=== PATIENT | female | born 1970 | race Caucasian/White ===

== ENCOUNTER 2020-01-03 08:43 | Outpatient (CLI) | payer BC, SELFPAY ==
--- NOTE | 2020-01-03 08:47 | MM_ITS ---
WS: [id number] Bilateral screening digital mammogram, 01/03/2020 Clinical Data: SCREENING Comparison: 02/18/2018, 12/19/2016, 05/16/2014, 05/27/2011, 03/05/2009. Findings: The breast parenchymal pattern shows fibroglandular tissue No spiculated masses or clustered calcific ations are seen. There are no secondary signs of carcinoma. MM/[place] [id number] Impression: 1. Negative bilateral mammogram unchanged. 2. Recommend annual screening mammograms. BIRADS: 1-Negative FOLLOW UP: 1 Year Follow-up The CAD weight checker was used.
== END 2020-01-03 08:44 | disposition home or self-care (01) ==
LOC: RADSHAW 08:46
PROVIDERS: PCP Family Medicine; Visit Provider Family Medicine
DX: Z12.31 Encounter for screening mammogram for malignant neoplasm of breast (principal)
CPT/HCPCS: 77067

== ENCOUNTER → 2020-01-16 12:16 | Outpatient (BNVA) | payer BC, SELFPAY | PROVIDERS: PCP Family Medicine; Visit Provider Family Medicine | DX: E78.00 Pure hypercholesterolemia, unspecified (principal); E28.39 Other primary ovarian failure; I10 Essential (primary) hypertension; F41.9 Anxiety disorder, unspecified; S40.861D Insect bite (nonvenomous) of right upper arm, subsequent encounter; W57.XXXD Bitten or stung by nonvenomous insect and other nonvenomous arthropods, subsequent encounter; Z72.0 Tobacco use | CPT/HCPCS: 80053; 80061; 85025 ==

== ENCOUNTER → 2020-07-31 11:35 | Outpatient (BNVA) | payer BC, SELFPAY | PROVIDERS: PCP Family Medicine; Visit Provider Family Medicine | DX: E78.00 Pure hypercholesterolemia, unspecified (principal); J04.0 Acute laryngitis | CPT/HCPCS: 80053; 80061; 85025 ==

== ENCOUNTER 2020-08-16 14:06 | Outpatient (CLI) | payer BC, SELFPAY ==
--- NOTE | 2020-08-16 14:30 | CT_ITS ---
WS: [id number] CT NECK WITH CONTRAST HISTORY: neck pain TECHNIQUE: Contiguous 5 mm axial images are performed through the neck with intravenous contrast. Sag ittal and coronal reformats are also submitted. All CT scans at [facility] use at least o ne of these dose optimization techniques: automated exposure control; mA and/or kV adjustment per pat ient size (includes targeted exams where dose is matched to clinical indication); or iterative recons truction. CONTRAST: CONTRAST: Omnipaque 300; 95 mL IV. DLP: 2348.73 mGycm COMPARISON: None available. Nasopharynx and hypopharynx are negative. There is some very mild heterogeneity and decreased attenua tion in the posterior tongue of uncertain etiology. No enhancing mass. There is a additional low-atte nuation nodule measuring 5 mm involving the base of the uvula. This is just slightly to the RIGHT of midline. LEFT pyriform sinus is slightly larger than the RIGHT. Torus tubarius and fossa of Rosenmuller and parapharyngeal fat are normal. There are small cervical chain lymph nodes identified bilaterally. The largest measures 8 mm at level 2 on the RIGHT. Normal size thyroid. Hypoechoic nodule LEFT thyroid is subcentimeter. No parotid mass. Cervical spondylitic changes. Visualized portions of the skull base demonstrate no abnormalities. Orbits and globes are within norm al limits. No soft tissue masses. Visualized paranasal sinuses and mastoid air cells are normal. There is a large soft tissue mass in the medial LEFT upper lung. Partly necrotic mass begins at the l evel of the apex and extends superior inferior by greater than 5 cm. This mass abuts the descending a antonio but there is still a fat plane present. Mass extends into the AP window where it may be involvin g the recurrent laryngeal nerve. Transverse diameter of 3.9 and AP measurement of 5.[address]/CT neck w con* [id number] IMPRESSION: 1. Large solid mass likely neoplastic centered in the LEFT upper lung/mediasti num. Mass abuts the aortic arch and extends into the AP window likely contactin g the LEFT recurrent laryngeal nerve. Mass measures 3.9 x 5.2 cm. This is likel y neoplastic. 2. Ill-defined area of decreased attenuation at the tongue base and a small no dule involving the base of the uvula. These are both very nonspecific and there is no adenopathy. Consider direct visualization for complete evaluation.
[2020-08-16] MEDS: iohexol 300 mg/mL 100 mL Btl IV (14:49)
== END 2020-08-16 14:07 | disposition home or self-care (01) ==
LOC: RADWPI 14:10
PROVIDERS: PCP Family Medicine; Visit Provider Otolaryngology
DX: M54.2 Cervicalgia (principal); R91.8 Other nonspecific abnormal finding of lung field
CPT/HCPCS: 70491; Q9967

== ENCOUNTER 2020-08-24 10:10 | Outpatient (CLI) | payer BC, OTHER, SELFPAY ==
--- NOTE | 2020-08-24 | CT_ITS ---
WS: [id number] CT CHEST, ABDOMEN, AND PELVIS TECHNIQUE: Contrast-enhanced CT of the chest, abdomen, and pelvis with coronal and sagittal reformatt ed images. CLINICAL INFORMATION: MEDIASTINAL MASS COMPARISON: CT abdomen pelvis and . CT neck August 16, 2020 DLP: 2468.[address] scans at [facility] use at least one of these dose optimization techniques: automat ed exposure control; mA and/or kV adjustment per patient size (includes targeted exams where dose is matched to clinical indication); or iterative reconstruction. CT CHEST: Heterogeneously enhancing anterior mediastinal mass abutting the AP window measuring 5.1 x 3.3 x 5.4 cm AP by transverse by craniocaudal consistent with neoplasm. This extends into the AP window. Associ ated encasement of the distal left mainstem bronchus with narrowing. Encasement and narrowing of the distal main pulmonary artery. This extends superiorly to abut the superior medial pleura and mediasti num. Normal caliber thoracic aorta. No pretracheal or right hilar lymphadenopathy. Normal thyroid gland. N o axillary lymphadenopathy. Mild chronic emphysematous changes. No acute pulmonary infiltrates. Sligh t atelectasis in the lung bases. CT ABDOMEN AND PELVIS: Diffuse fatty infiltration of the liver. Normal gallbladder. Normal portal vein and splenic vein. Nor mal spleen. Normal GE junction. Normal pancreas. Adrenal glands are normal. Normal renal parenchymal enhancement. No hydronephrosis. Tiny renal cysts. Normal caliber abdominal aorta. Aortic calcificatio n. Again seen is small bowel located within the right mid and upper quadrant with colon in the left abdo men consistent with malrotation.Sigmoid diverticulosis. No evidence of acute diverticulitis. Right ov kylie cysts largest measuring 2.5 CM. No free fluid in the pelvis. Disc space narrowing worse L5-S1. Prior hysterectomy. CT/CT chest abd pel w con* IMPRESSION: 1. Again seen is a heterogeneously enhancing anterior mediastinal mass abuttin g the aortic arch extending into the AP window. This measures 5.1 x 3.3 x 5.4 C M. 2. No axillary lymphadenopathy. No suspicious pulmonary lesions. 3. Mediastinal mass narrows the left main pulmonary artery and distal left yojana nstem bronchus. 4. No evidence of metastatic disease in the abdomen or pelvis. 5. Diffuse fatty infiltration of the liver 6. Intestinal malrotation unchanged the prior examinations. 7. Low-attenuation right ovarian cysts the largest measuring 2.5CCM. No free f luid in the cul-de-sac.
[2020-08-24 12:35] LABS: Basophils # 0.1 10^3/uL (0.0-0.1); Basophils % 0.7 %; Eosinophils % 0.3 %; Hematocrit 41.3 % (37.0-47.0); Lymphocytes # 3.2 10^3/uL (0.8-4.8); Mean Corpuscular HGB Conc 33.9 g/dL (30.0-36.0); Mean Corpuscular Hemoglobin 30.4 pg (28.0-34.0); Mean Corpuscular Volume 89.8 fL (81-99); Monocytes # 0.9 10^3/uL (0.2-0.9); Monocytes % 8.7 %; Neutrophils # 6.06 10^3/uL (1.8-7.7); Neutrophils % 58.9 %; Nucleated Red Blood Cells % 0 %; Platelet Count 418 10^3/cmm (130-400); Red Cell Distribution Width 12.1 % (12.1-15.1); White Blood Count 10.3 10^3/uL (4.0-10.0)
[2020-08-24 12:42] LABS: INR 0.91 (0.8-1.2)
[2020-08-24 12:48] LABS: Alanine Aminotransferase 42 U/L (0-33); Albumin Level 4.6 g/dL (3.5-5.2); Alkaline Phosphatase 75 IU/L (35-105); Anion Gap 13.7 (5-19); Aspartate Amino Transferase 26 U/L (0-32); Blood Urea Nitrogen 17 mg/dL (6-20); Calcium 10.6 mg/dL (8.5-10.5); Carbon Dioxide 29 mmol/L (22-29); Chloride 100 mmol/L (98-107); Globulin 3.1 g/dL (1.3-4.6); Glomerular Filtration Rate 75.6 mL/min (90-130); Glucose 89 mg/dL (65-115); Lactate Dehydrogenase 195 U/L (135-214); Osmolality Calculated 289 mOsm/kg (285-295); Potassium 3.7 mmol/L (3.5-5.1); Sodium 139 mmol/L (136-145); Thyroid Stimulating Hormone 1.76 uIU/mL (0.27-4.20); Total Bilirubin 0.2 mg/dL (0.15-1.2); Total Protein 7.7 g/dL (6.6-8.7)
[2020-08-24] MEDS: iohexol 300 mg/mL 100 mL Btl IV (12:51)
--- NOTE | 2020-08-24 13:30 | ONC CON_ITS ---
Dr. Alvarado New Patient Note Patient: Sarahi Christopher Unit #: [id number]: 1970 Dicatated By: Anthony Alvarado M.D.Date of Visit: Aug 24, 2020 Onc MED New Patient/Consult Referring Physician: Dr. Candis Blue M.D. Chief Complaint: Mediastinal mass. History of Present Illness: This is a 50-year-old woman with CT evidence of a mediastinal mass. She has hypertension and hyperlipidemia, and she also has TMJ disorder. She had progressively worsening hoarseness since early June. She was seen by Dr. Major on 08/01/2020. Her flexible laryngoscopy was unrevealing. Further evaluation with neck CT on 08/16/2000 revealed a large neoplastic appearing mass in the medial left upper lung/mediastinum measuring 5.2 x 3.9 cm with superior inferior extension greater than 5 cm. There was extension into the AP window. Also noted was an ill-defined area of decreased attenuation at the tongue base and a small nodule involving the base of the uvula. Small cervical chain lymph nodes were noted bilaterally bilaterally, the largest on the right measuring 8 mm. She complained that she has been feeling tired a lot, and there has been some decrease in her activity tolerance. Her ECOG score is 1. She has not had good appetite and her weight is down a little. She has not had fever or night sweats. She does have some hot flashes. She continues to have hoarseness. She sometimes chokes when she swallows. She has some pain and tenderness in the left neck area. She has shortness of breath and she sometimes has cough. She does not complain of chest pain, but she sometimes has pounding in her chest. She has had headaches behind the left eye and in the area of the left congregation. She has no focal neurologic symptoms. Past Medical History: Ms. Bryants medical history consists of anxiety, hypercholesterolemia, hypertension, and TMJ disorder. Past Surgical History: Ms. Bryants surgical/procedural history consists of Cervical Laser Surgery - Pre-Cancer Cells removed, excision of 3 benign subcutaneous nodules, tonsillectomy, coronary angiography in 2018, and laparoscopic-assisted vaginal hysterectomy in 2005. Medications: Atorvastatin Calcium 1 (20 mg) Tablet Oral daily, Biotin 1 (17095 mcg) Tablet Oral daily, Calcium Citrate 1 (200 mg) Tablet Oral daily, hydroCHLOROthiazide 1 (25 mg) Tablet Oral daily, Ibuprofen 1 (600 mg) Tablet Oral t.i.d. PRN, LORazepam 1 (1 mg) Tablet Oral t.i.d. PRN, Naproxen Sodium 1 (220 mg) Tablet Oral daily PRN, One-Daily Multi Vitamins 1 Tablet Oral daily, Potassium Chloride ER 1 (20 meq) Tablet, controlled release Oral b.i.d. Allergies: Bavarian Cream, Egg, Penicillins, Robitussin 12 Hour Cough, and Unpasteurized Dairy . Social History: Ms. Christopher is . Ms. Christopher no longer smokes but had smoked 1.0 pack/day. She drinks occasionally. She has a history of smoking off and on for 20 years, up to a pack of cigarettes daily. She quit smoking within the past few months. She has had only rare alcohol use. Family History: Ms. Christopher's mother is alive: lymphoma. Ms. Christopher's father at age 66: liver cancer, and lung cancer. Ms. Christopher has 1 brother who is alive: lung disease. She has 1 sister who is alive. Father of lung cancer at age 66. Mother still living at age 88. She has been treated for lymphoma. A brother of lung disease at age 58. A 61-year-old sister is in good health. Review Of Symptoms: Constitutional - She has been feeling tired a lot, and she has had some decrease in her activity tolerance. Appetite has not been good and her weight is down a little. She has not had fever or night sweats. She does have some hot flashes. ECOG score is 1, Eyes - No change in vision, ENMT - No hearing loss or tinnitus, but she does report having pain in her left ear. No sinus congestion/drainage. No mouth sores. No sore throat. She has hoarseness and she sometimes chokes when she swallows, Hematologic/Lymphatic - No abnormal bruising or bleeding, Respiratory - She has shortness of breath. She sometimes has cough. No pleuritic pain or hemoptysis, Cardiovascular - No angina pain. She sometimes has pounding in her chest, Gastrointestinal - She has had occasional nausea and she has had occasional acid reflux. No diarrhea or constipation. No blood in the stool or black stools, Genitourinary (F) - She had 1 recent episode of hematuria, that resolved with increased fluid intake. No dysuria or urinary frequency. No urgency or incontinence, Musculoskeletal - She has TMJ disorder. Recently she has had some pain in her left elbow. No other joint or bone pain, Integumentary - No skin rash or other skin problems, Neurologic - She has had some headache in the left congregation area and behind the left eye. She occasionally has dizziness. No numbness or tingling. No other focal neurologic symptoms, Psychiatric - She has anxiety and depression. She has been taking Tylenol PM or lorazepam for insomnia. Vital Signs: Performed on Aug 24, 2020 11:04: 3, 30.95 (HIGH), 1.78 sq.m, 62 in, 95 % (LOW), 111 /min (HIGH), 16 /min, 139/102 mm(hg), 98.4 F, and 169.2 lbs (HIGH). Physical Examination: Constitutional - She appears to be in good general health, Eyes - Sclerae nonicteric. Conjunctivae clear, ENMT - No lesions noted in the oral cavity, Neck - No mass or thyromegaly, Hematologic/Lymphatic - No cervical, clavicular, or axillary adenopathy, Respiratory - Lungs are clear with good air movement bilaterally, Cardiovascular - Heart rhythm is regular. There is no murmur, gallop, or rub noted, Abdomen - Soft and non-tender. Liver and spleen are not enlarged. There is no abdominal mass or ascites noted and there is no inguinal adenopathy, Back/Spine - No spine or CVA tenderness noted, Extremities - No edema. Posterior tibial pulses are palpable bilaterally, Integumentary - No rashes. No suspicious skin lesions noted, Neurologic - No focal neurologic deficits noted. Lab/Imaging: Problem List: 1. CT evidence of mediastinal mass, likely neoplastic. 2. Hypertension. 3. Hyperlipidemia. 4. TMJ disorder. 5. Chronic anxiety. Problems Addressed with this Encounter and Plan: Patient with CT evidence of mediastinal mass which is likely neoplastic. She has associated hoarseness, most likely due to recurrent laryngeal nerve impingement. I discussed the CT findings with the patient and her and I also reviewed the CT images with them. She is going to have further evaluation today with CT scans of the chest, abdomen, and pelvis. I also will obtain baseline laboratory studies to include CBC, comprehensive metabolic profile, LDH level, sed rate, TSH level, and antiacetylcholine receptor antibodies. In the meantime, I also have conferred with the radiologist and with Dr. Long regarding her further evaluation. As the location of the lesion is such that it is not going to be amenable to CT directed needle biopsy, I think the best approach will be a mediastinoscopy procedure for biopsy. I am tentatively arranging for referral to Dr. Long pending outcome of the CT scans and lab results. Signed By: Anthony Alvarado M.D. <<Signature on File>>
--- NOTE | 2020-08-24 13:32 | ONC CON_ITS ---
Dr. Alvarado New Patient Note Patient: Sarahi Christopher Unit #: [id number]: 1970 Dicatated By: Anthony Alvarado M.D.Date of Visit: Aug 24, 2020 Onc MED New Patient/Consult Referring Physician: Dr. Candis Blue M.D. Chief Complaint: Mediastinal mass. History of Present Illness: This is a 50-year-old woman with CT evidence of a mediastinal mass. She has hypertension and hyperlipidemia, and she also has TMJ disorder. She had progressively worsening hoarseness since early June. She was seen by Dr. Major on 08/01/2020. Her flexible laryngoscopy was unrevealing. Further evaluation with neck CT on 08/16/2000 revealed a large neoplastic appearing mass in the medial left upper lung/mediastinum measuring 5.2 x 3.9 cm with superior inferior extension greater than 5 cm. There was extension into the AP window. Also noted was an ill-defined area of decreased attenuation at the tongue base and a small nodule involving the base of the uvula. Small cervical chain lymph nodes were noted bilaterally bilaterally, the largest on the right measuring 8 mm. She complained that she has been feeling tired a lot, and there has been some decrease in her activity tolerance. Her ECOG score is 1. She has not had good appetite and her weight is down a little. She has not had fever or night sweats. She does have some hot flashes. She continues to have hoarseness. She sometimes chokes when she swallows. She has some pain and tenderness in the left neck area. She has shortness of breath and she sometimes has cough. She does not complain of chest pain, but she sometimes has pounding in her chest. She has had headaches behind the left eye and in the area of the left anglican. She has no focal neurologic symptoms. Past Medical History: Her medical history includes anxiety, hypercholesterolemia, hypertension, and TMJ disorder. Past Surgical History: Her surgical/procedural history includes cervical laser surgery for pre-cancerous cells, excision of 3 benign subcutaneous nodules, tonsillectomy, coronary angiography in 2018, and laparoscopic-assisted vaginal hysterectomy in 2005. Medications: Atorvastatin Calcium 1 (20 mg) Tablet Oral daily, Biotin 1 (45766 mcg) Tablet Oral daily, Calcium Citrate 1 (200 mg) Tablet Oral daily, hydroCHLOROthiazide 1 (25 mg) Tablet Oral daily, Ibuprofen 1 (600 mg) Tablet Oral t.i.d. PRN, LORazepam 1 (1 mg) Tablet Oral t.i.d. PRN, Naproxen Sodium 1 (220 mg) Tablet Oral daily PRN, One-Daily Multi Vitamins 1 Tablet Oral daily, Potassium Chloride ER 1 (20 meq) Tablet, controlled release Oral b.i.d. Allergies: Bavarian Cream, Egg, Penicillins, Robitussin 12 Hour Cough, and Unpasteurized Dairy . Social History: Ms. Christopher is . She has a history of smoking off and on for 20 years, up to a pack of cigarettes daily. She quit smoking within the past few months. She has had only rare alcohol use. Family History: Father of lung cancer at age 66. Mother still living at age 88. She has been treated for lymphoma. A brother of lung disease at age 58. A 61-year-old sister is in good health. Review Of Symptoms: Constitutional - She has been feeling tired a lot, and she has had some decrease in her activity tolerance. Appetite has not been good and her weight is down a little. She has not had fever or night sweats. She does have some hot flashes. ECOG score is 1, Eyes - No change in vision, ENMT - No hearing loss or tinnitus, but she does report having pain in her left ear. No sinus congestion/drainage. No mouth sores. No sore throat. She has hoarseness and she sometimes chokes when she swallows, Hematologic/Lymphatic - No abnormal bruising or bleeding, Respiratory - She has shortness of breath. She sometimes has cough. No pleuritic pain or hemoptysis, Cardiovascular - No angina pain. She sometimes has pounding in her chest, Gastrointestinal - She has had occasional nausea and she has had occasional acid reflux. No diarrhea or constipation. No blood in the stool or black stools, Genitourinary (F) - She had 1 recent episode of hematuria, that resolved with increased fluid intake. No dysuria or urinary frequency. No urgency or incontinence, Musculoskeletal - She has TMJ disorder. Recently she has had some pain in her left elbow. No other joint or bone pain, Integumentary - No skin rash or other skin problems, Neurologic - She has had some headache in the left anglican area and behind the left eye. She occasionally has dizziness. No numbness or tingling. No other focal neurologic symptoms, Psychiatric - She has anxiety and depression. She has been taking Tylenol PM or lorazepam for insomnia. Vital Signs: Performed on Aug 24, 2020 11:04: 3, 30.95 (HIGH), 1.78 sq.m, 62 in, 95 % (LOW), 111 /min (HIGH), 16 /min, 139/102 mm(hg), 98.4 F, and 169.2 lbs (HIGH). Physical Examination: Constitutional - She appears to be in good general health, Eyes - Sclerae nonicteric. Conjunctivae clear, ENMT - No lesions noted in the oral cavity, Neck - No mass or thyromegaly, Hematologic/Lymphatic - No cervical, clavicular, or axillary adenopathy, Respiratory - Lungs are clear with good air movement bilaterally, Cardiovascular - Heart rhythm is regular. There is no murmur, gallop, or rub noted, Abdomen - Soft and non-tender. Liver and spleen are not enlarged. There is no abdominal mass or ascites noted and there is no inguinal adenopathy, Back/Spine - No spine or CVA tenderness noted, Extremities - No edema. Posterior tibial pulses are palpable bilaterally, Integumentary - No rashes. No suspicious skin lesions noted, Neurologic - No focal neurologic deficits noted. Problem List: 1. CT evidence of mediastinal mass, likely neoplastic. 2. Hypertension. 3. Hyperlipidemia. 4. TMJ disorder. 5. Chronic anxiety. Problems Addressed with this Encounter and Plan: Patient with CT evidence of mediastinal mass which is likely neoplastic. She has associated hoarseness, most likely due to recurrent laryngeal nerve impingement. I discussed the CT findings with the patient and her and I also reviewed the CT images with them. She is going to have further evaluation today with CT scans of the chest, abdomen, and pelvis. I also will obtain baseline laboratory studies to include CBC, comprehensive metabolic profile, LDH level, sed rate, TSH level, and antiacetylcholine receptor antibodies. In the meantime, I also have conferred with the radiologist and with Dr. Long regarding her further evaluation. As the location of the lesion is such that it is not going to be amenable to CT directed needle biopsy, I think the best approach will be a mediastinoscopy procedure for biopsy. I am tentatively arranging for referral to Dr. Long pending outcome of the CT scans and lab results. Signed By: Anthony Alvarado M.D. <<Signature on File>>
[2020-08-24 14:06] LABS: Erythrocyte Sedimentation Rate 22 mm/hr (0-15)
== END 2020-08-24 10:11 | disposition home or self-care (01) ==
PROVIDERS: PCP Family Medicine; Visit Provider Internal Medicine Medical Oncology
DX: R93.89 Abnormal findings on diagnostic imaging of other specified body structures (principal); Z01.812 Encounter for preprocedural laboratory examination; R49.0 Dysphonia; I10 Essential (primary) hypertension; E78.5 Hyperlipidemia, unspecified; M26.609 Unspecified temporomandibular joint disorder, unspecified side; F41.9 Anxiety disorder, unspecified
CPT/HCPCS: 36415; 71260; 74177; 80053; 83516; 83615; 84443; 85025; 85610; 85651; 99205; Q9967

== ENCOUNTER → 2020-08-30 13:29 | Outpatient (BNVA) | payer BC, OTHER, SELFPAY | PROVIDERS: PCP Family Medicine; Visit Provider Thoracic Surgery (Cardiothoracic Vascular Surgery) | DX: Z20.822 Contact with and (suspected) exposure to COVID-19 (principal); J98.59 Other diseases of mediastinum, not elsewhere classified | CPT/HCPCS: 87635 ==

== ENCOUNTER 2020-09-03 13:38 | Observation (INO) | payer BC, OTHER, SELFPAY ==
[2020-08-31 10:55] VITALS: BMI 23.8
[2020-09-03] VITALS (20 sets, daily range): BP systolic 90–154; BP diastolic 62–106; PULSE 68–113; RESP 10–18; TEMP 36.3–37.7; O2SAT 93–99
[2020-09-03 08:51] LABS: Basophils # 0.1 10^3/uL (0.0-0.1); Basophils % 0.8 %; Eosinophils # 0.1 10^3/uL (0.0-0.8); Eosinophils % 0.7 %; Hematocrit 40.2 % (37.0-47.0); Lymphocytes # 2.6 10^3/uL (0.8-4.8); Lymphocytes % 29.4 %; Mean Corpuscular HGB Conc 34.8 g/dL (30.0-36.0); Mean Corpuscular Hemoglobin 30.5 pg (28.0-34.0); Mean Corpuscular Volume 87.6 fL (81-99); Mean Platelet Volume 9.1 fL (7.4-10.4); Monocytes # 0.9 10^3/uL (0.2-0.9); Neutrophils # 5.27 10^3/uL (1.8-7.7); Neutrophils % 58.9 %; Nucleated Red Blood Cells % 0 %; Platelet Count 404 10^3/cmm (130-400); Red Blood Count 4.59 10^6/uL (4.1-5.3); Red Cell Distribution Width 12.1 % (12.1-15.1); White Blood Count 8.9 10^3/uL (4.0-10.0)
--- NOTE | 2020-09-03 08:57 | P.ANESASSM_ITS ---
Pre-Anesthetic Assessment Pre-Anesthetic Assessment: Height/Weight: Height 1.57 m Weight 58.967 kg Temp Pulse Resp BP Pulse Ox 97.6 F 104 H 18 115/87 97 09/03/20 08:35 09/03/20 08:35 09/03/20 08:35 09/03/20 08:35 09/03/20 08:35 Preop Diagnosis: Mediastinal mass Proposed Procedure: Operation Date: 09/03/20 09:20 Proposed Procedures p [place] Mediastinoscopy J98.59 [id number](Not Applicable) - He Long MD Familial anesthetic complications: None Was Beta Paula taken within 24 hours: N/A Last intake: Intake Last Liquid Date 09/02/20 Last Liquid Time 22:00 Last Solid Date 09/02/20 Last Solid Time 21:00 Social: Social History: No alcohol and No tobacco Comment: former smoker - quite 2019 Exam: Pre-Anes Outpt Exam: alert, oriented x 3, clear to auscultation bilaterally and regular rate & rhythm Airway: Cervical ROM: WNL MP: 3 Dentition: Full Pulmonary: Comments: L upper lobe/mediastinal mass, narrows L main bronchus, abuts L PA. Normal pharyngeal anatomy per Dr. Minaya's ENT exam. Hoarse voie, no trouble breathing while laying flat or on either side. Somtimes has difficulty catching her breath when her vocal cords get irritated CV/HEM: CV/HEM: HTN Comments: hx chest pain in the past, but normal angiogram per patient Metabolic: Metabolic: Hyperlipidemia Neuropsych: Neuropsych: Anxiety Anesthetic Plan: ASA status: 3 Anesthesia: General Risk of > 500 ml bloo d loss (7ml/kg in children): No PFSH Anesthesia PFSH: Medical History Anxiety Estrogen deficiency Hypercholesteremia Tobacco abuse Family History Mother Cancer lymphoma Father Cancer lung, liver Social History Smoking and tobacco status: former smoker Quit status (tobacco): has quit using tobacco Year quit tobacco: 2019 Second hand smoke exposure: No Alcohol intake: current Alcohol intake frequency: holidays/special occasions only Lives independently: Yes Household members: spouse Housing: House service: No History of recent travel: No Current gender identity: Female Special karsten needs: No Data Anesthesia CBC & Chem 7: 09/03/20 08:30 09/03/20 08:30 Other Labs: Laboratory Results - last 48 hr 09/03/20 08:30 WBC 8.9 RBC 4.59 Hgb 14.0 Hct 40.2 MCV 87.6 MCH 30.5 MCHC 34.8 RDW 12.1 Plt Count 404 H MPV 9.1 Neut % (Auto) 58.9 Lymph % (Auto) 29.4 Dickson % (Auto) 10.0 Eos % (Auto) 0.7 Baso % (Auto) 0.8 Neut # (Auto) 5.27 Lymph # (Auto) 2.6 Dickson # (Auto) 0.9 Eos # (Auto) 0.1 Baso # (Auto) 0.1 Nucleated RBC % (auto) 0 Nucleated RBCs # 0.0 Cardiac Studies: No Data to Display
[2020-09-03 08:58] LABS: Urine Appearance SL Hazy (CLEAR); Urine Color Yellow (Yellow); pH Urine 7 (5-7)
[2020-09-03 08:59] LABS: Add Urine Culture? No; Add Urine Microscopic? YES; Bacteria Urine TRACE /hpf; Bilirubin Urine Neg (Negative); Blood Urine 3+ (Negative); Glucose Urine UA Norm (Normal); Ketones Urine Negative (Negative); Leukocyte Esterase Urine Negative (Negative); Nitrate Urine Negative (Negative); Protein Urine Neg (Negative); Specific Gravity, Urine 1.005 (1.005-1.030); Squamous Epithelial Cell Urine 0-4 /hpf (0-5); Urobilinogen Urine Norm (Negative); WBC Urine 0-4 /hpf (0-5)
[2020-09-03 09:05] LABS: INR 0.88 (0.8-1.2)
[2020-09-03 09:17] LABS: Anion Gap 15.6 (5-19); Blood Urea Nitrogen 20 mg/dL (6-20); Calcium 9.9 mg/dL (8.5-10.5); Carbon Dioxide 25 mmol/L (22-29); Chloride 102 mmol/L (98-107); Glomerular Filtration Rate 105.4 mL/min (90-130); Glucose 100 mg/dL (65-115); Osmolality Calculated 291 mOsm/kg (285-295); Potassium 3.6 mmol/L (3.5-5.1); Sodium 139 mmol/L (136-145)
[2020-09-03] MEDS: sodium chloride 0.9% 1,000 ML 30 ML IV (09:31)
[2020-09-03] MEDS: vancomycin 1,000 MG in sodium chloride 0.9% 250 ML 250 MG IV (10:10)
--- NOTE | 2020-09-03 10:47 | W.PM.OPSUD ---
Surgery/Procedure H&P Update DATE OF PROCEDURE: September 03, 2020 DATE H&P PERFORMED: 08/27/20 H&P UPDATE INFORMATION: I have reviewed H&P completed within last 30 days, I have examined patient prior to procedure and No changes to prior documentation CHANGES TO PREVIOUS DOCUMENTATION: I had a lengthy discussion with Ms. Christopher and her family concerning the radiographic findings and reviewed personally with them the CT scan of the chest. Rationale for left-sided Neversink procedure was frankly discussed. Particular risk of this operation include catastrophic bleeding requiring sternotomy are also frankly discussed. All questions were answered. They wish to proceed. PREOP DIAGNOSIS: Mediastinal mass PRIMARY INDICATION FOR PROCEDURE: Mediastinal mass with left pulmonary artery compression PLANNED PROCEDURE: Operation Date: 09/03/20 09:20 Proposed Procedures p [place] Mediastinoscopy J98.59 [id number](Not Applicable) - He Long MD
[2020-09-03] MEDS: vancomycin 1,000 MG SDV 1000 MG IRRIGATION (11:20)
--- NOTE | 2020-09-03 13:24 | PM.OP ---
Operative Report Date of procedure: September 03, 2020 Pre-op Diagnosis: Mediastinal mass Post-op diagnosis: same Post-op Findings: Frozen section analysis consistent with malignancy with initial impression of small cell carcinoma, flow cytometry pending to rule out high-grade lymphoma. Procedure Done: Left-sided open mediastinotomy; [place] procedure. Specimens removed/disposition: Multiple biopsies obtained from AP window mass and sent to pathology for both frozen and permanent analysis and flow cytometry. Surgeon: He Long Anesthesia: General Findings: Direct biopsies of this mediastinal mass sent to pathology with initial impression by frozen section consistent with small cell carcinoma with further studies pending including flow cytometry to rule out high-grade lymphoma. Condition: stable Disposition: floor Brief History: Ms. Christopher is a 50-year-old female referred to our service after initial evaluations by otolaryngology because of by increasing hoarseness. Further evaluation simply included CT scan of the neck and chest which revealed a left AP window mediastinal mass. She was simply referred to our service after evaluation by Dr. Alvarado from oncology. Recommendation for left-sided [place] procedure was made and discussed carefully with the patient and her . Details of risk of the procedure carefully reviewed. Proper consents reviewed and signed. Procedure: Ms. Christopher was placed in supine position and underwent general endotracheal anesthesia. A right radial arterial line was placed. The entire chest was sterilely prepped and draped. A left parasternal incision was made extending over the second and third ribs at the intercostal junction with the sternum. Dissection was continued down through the to the perichondrium of the ribs. The third rib was dissected free anteriorly and posteriorly at this junction. The rib was subsequently divided and a small section anteriorly was removed. The left internal mammary artery and vein were dissected free and clipped and divided and removed from the field. Sharp and blunt dissection was carried down through periaortic adipose tissue until the mass was encountered. There was substantial adipose tissue requiring dissection in order to provide adequate exposure. The mass aspirated several times and then multiple incisional biopsies were taken. These were sent to pathology for both frozen and permanent section. Frozen section analysis is consistent with probable small cell carcinoma with flow cytometry pending to rule out high-grade lymphoma. Further analysis pending. Hemostasis was then confirmed using cautery and Surgicel. Once completed, retractors were removed. Sponge and needle count was correct. Wound was closed with 2-0 Vicryl suture in 2 layers and the skin was reapproximated in a subcuticular fashion utilizing 4-0 Monocryl suture. Sterile dressings were applied. Ms. Christopher has equal breath sounds bilaterally and was extubated and taken to the postoperative care unit where a chest x-ray is pending. I counseled with the family at the completion of the procedure.
--- NOTE | 2020-09-03 13:36 | XR_ITS ---
WS: [id number] PORTABLE CHEST HISTORY: post op biopsy. COMPARISON: 08/27/2010 Patient has a known anterior mediastinal mass which extends into the AP window. Again noted is a soft tissue mass with obscuration of the aortic arch. Adjacent haziness and interstitial thickening throu ghout the mid and lower LEFT lung. May be from the recent biopsy and associated post biopsy bleeding. There are surgical sutures noted at the AP window and also near the medial LEFT diaphragm. Lung volu mes are decreased. No pleural effusion or pneumothorax. Cardiac size: Partially obscured by the mediastinal mass. No osseous abnormality seen. XR/XR chest 1V portable [id number] IMPRESSION: 1. Decreased lung volumes. 2. Patient has a known is mediastinal mass extending into the AP window obscur ing the aorta. Increased interstitial thickening in the adjacent lung is probab ly from the recent biopsy. No pneumothorax.
[2020-09-03] MEDS: ondansetron 2 mg/ML SDV 2 mL 4 MG IVP ×2 (13:50→14:01)
--- NOTE | 2020-09-03 14:06 | ECG_ITS ---
[facility] Test Date: 2020-09-03 Pat Name: Sarahi Christopher Department: Room: 266 Gender: Female Mixer Whipped Topping: : 1970 Requested By: He Long Order Number: [id number] Sima MD: Reina Rutherford M.D. 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 [id number]
[2020-09-03] MEDS: ketorolac 30 mg/mL INJ IVP (14:16)
--- NOTE | 2020-09-03 14:25 | PTH.FRZRPT ---
Frozen Section Notes Specimen(s): AP window mediastinal mass. Gross: The specimen is submitted fresh in 2 Telfa papers with 11 red-ford fragments measuring 3 to 6 mm each. Food Check[employer] Cash[employer] Supervisor fragments are submitted for frozen section diagnoses in cassette FS A1. 2 fragments are submitted for flow cytometry, and the remainder is submitted in cassette A2. Preliminary Impression: Lymph node, AP window mediastinal mass , biopsy (FS A1): ?Positive for malignancy. ?Specimen is sent for flow cytometry. ?Small round blue cell tumor: differential includes small cell carcinoma, poorly differentiated non-small cell carcinoma, high-grade lymphoma. - Specimen Information Pathologist: Milan Mendez Date: 09/03/20 Specimen reported at what time: 13:20 - Clinician Specimen collection time: 13:10 Clinician reported to: He Long
[2020-09-03] MEDS: metoclopramide 5 mg/mL SDV 2 mL 10 MG IVP (14:26)
[2020-09-03] MEDS: lactated ringers 1,000 ML 100 ML IV (14:54)
--- NOTE | 2020-09-03 15:03 | SUR.PHASEI ---
1340 ART. LINE REMOVED FROM R. WRIST, PRESSURE DRESSING APPLIED, CATHETER INTACT
--- NOTE | 2020-09-03 15:05 | SUR.PHASEI ---
1355 ART. LINE SITE NO LONGER BLEEDING, PRESSURE DRESSING APPLIED
--- NOTE | 2020-09-03 15:10 | SUR.PHASEI ---
1400 PT C/O CHEST/L. ARM PAIN FROM SHOULDER RADIATING DOWN ARM, SOB AND NAUSEA, EKG ORDERED
--- NOTE | 2020-09-03 15:46 | ANE.PACU2 ---
Inpatient post-anesthesia follow up: Airway intact: Yes Vital signs: Temperature 98.8 F Pulse Rate 78 Respiratory Rate 16 Blood Pressure 96/69 Pulse Oximetry 96 Oxygen Delivery Me thod Nasal Cannula Oxygen Flow Rate 2 Fraction of Inspir ed Oxygen Hydration adequate: Yes Nausea and vomiting: No Pain level: 3 Mental status: Baseline
[2020-09-03] MEDS: oxyCODONE-APAP 5-325 mg Tablet 1 TAB PO (16:27)
[2020-09-03] MEDS: potassium chloride ER 20 mEq Tablet PO (18:07)
[2020-09-03] MEDS: LORazepam 1 mg Tablet PO (20:50)
[2020-09-04] MEDS: lactated ringers 1,000 ML 100 ML IV (01:03)
[2020-09-04 01:09] VITALS: RESP 18; O2SAT 97
[2020-09-04] MEDS: oxyCODONE-APAP 5-325 mg Tablet 1 TAB PO (01:09)
[2020-09-04 01:40] VITALS: BP 114/75; PULSE 104; RESP 18; TEMP 37.1; O2SAT 94
[2020-09-04 03:52] VITALS: BP 117/80; PULSE 103; RESP 17; TEMP 36.8; O2SAT 93
--- NOTE | 2020-09-04 06:55 | PM.DCS ---
Discharge Providers Date of Admission: 09/03/20 13:38 Date of Discharge: September 04, 2020 Attending Provider at Admission: He Long MD Attending Provider at Discharge: He Long MD Primary Care Provider: Candis Blue MD Reason for Visit Reason for Visit: chamberlain procedure Hospital Course Hospital Course Ms. Christopher a very pleasant 50-year-old female referred to our service to consider biopsy of an AP window mass discovered on CT scan as part of an evaluation for hoarseness. She was electively admitted yesterday and underwent left sided open mediastinotomy (Adams procedure). Multiple biopsies were obtained. Initial frozen section analysis is consistent with small cell carcinoma or possible high-grade lymphoma. Further studies pending. I have conferred with Dr. Alvarado by phone. Postoperative, she has convalesced on the medical/surgical murray where she has done well. Only modest surgical discomfort easily controlled with oral medication. No breathing difficulties. Vital signs stable. She was up in chair on rounds this morning. Using incentive spirometry well, pulling around 1000 cc. She and her are eager for discharge to home. She will be discharged home today in stable condition for scheduled follow-up in my clinic in 1 week. She will also follow-up with Dr. Alvarado and the oncology service. Physical Exam Chest: COMMONS NORMALS: normal inspection of the chest (Surgical dressing clean and dry.) and normal palpation of entire chest wall Resp: COMMON NORMALS: normal respiratory effort, No retractions, No use of accessory muscles, clear to auscultation bilaterally and percussion normal EFFORT & INSPECTION: Yes able to speak in complete sentences and Yes symmetric chest movement AUSCULTATION: clear to auscultation bilaterally PERCUSSION: percussion normal Cardio: COMMON NORMALS: regular rate, regular rhythm, S1 normal heart sound present, S2 normal heart sound present, No murmurs present (Cardio) and No rub (Cardio) RATE: regular rate RHYTHM: regular rhythm HEART SOUNDS: S1 normal heart sound present and S2 normal heart sound present Extremity: COMMON NORMALS: no clubbing, cyanosis or edema Urinary Catheter Management^: Horner: Cath Placed During This Visit: yes, but has since been removed by the nurse Reason for Continuing Indwelling Catheter: Not indwelling catheter Urinary Catheter Date of Insertion: 09/03/20 Urinary Catheter Time of Insertion: 11:04 Date Urinary Catheter Removed: 09/03/20 Time Urinary Catheter Discontinued: 13:30 Discharge Data Data Completed and Pending: Completed Studies During Hospitalization Category Date Time Status XR chest 1V kamron ble [id number] Routine Exams 09/03/20 13:36 Completed Pending at discharge Category Date Time Status Leukocyte Reduced RBC Routine Lab 09/03/20 08:30 Results Type and Screen R outine Lab 09/03/20 08:30 Results Pathology: Surgic al [PTH] Routine Pth 09/03/20 13:05 Received Labs from last 24 hours 09/03/20 09/03/20 09/03/20 08:30 08:30 08:30 WBC 8.9 RBC 4.59 Hgb 14.0 Hct 40.2 MCV 87.6 MCH 30.5 MCHC 34.8 RDW 12.1 Plt Count 404 H MPV 9.1 Neut % (Auto) 58.9 Lymph % (Auto) 29.4 [place] % (Auto) 10.0 Eos % (Auto) 0.7 Baso % (Auto) 0.8 Neut # (Auto) 5.27 Lymph # (Auto) 2.6 [place] # (Auto) 0.9 Eos # (Auto) 0.1 Baso # (Auto) 0.1 Nucleated RBC % (a uto) 0 Nucleated RBCs # 0.0 PT 12.20 INR 0.88 Sodium 139 Potassium 3.6 Chloride 102 Carbon Dioxide 25 Anion Gap 15.6 BUN 20 Creatinine 0.6 GFR Calculation 105.4 Glucose 100 Calculated Osmolal ity 291 Calcium 9.9 Urine Color Urine Appearance Urine pH Ur Specific Gravit y Urine Protein Urine Glucose (UA) Urine Ketones Urine Blood Urine Nitrate Urine Bilirubin Urine Urobilinogen Ur Leukocyte Bonnie ase Urine RBC Urine WBC Ur Squamous Epith Cells Amorphous Sediment Urine Bacteria Blood Type Rho(D) Type Antibody Screen Crossmatch 09/03/20 09/03/20 08:30 08:17 WBC RBC Hgb Hct MCV MCH MCHC RDW Plt Count MPV Neut % (Auto) Lymph % (Auto) [place] % (Auto) Eos % (Auto) Baso % (Auto) Neut # (Auto) Lymph # (Auto) [place] # (Auto) Eos # (Auto) Baso # (Auto) Nucleated RBC % (a uto) Nucleated RBCs # PT INR Sodium Potassium Chloride Carbon Dioxide Anion Gap BUN Creatinine GFR Calculation Glucose Calculated Osmolal ity Calcium Urine Color Yellow Urine Appearance Sl hazy Urine pH 7 Ur Specific Gravit y 1.005 Urine Protein Neg Urine Glucose (UA) Norm Urine Ketones Negative Urine Blood 3+ H Urine Nitrate Negative Urine Bilirubin Neg Urine Urobilinogen Norm Ur Leukocyte Bonnie ase Negative Urine RBC 5-10 H Urine WBC 0-4 H Ur Squamous Epith Cells 0-4 H Amorphous Sediment Not Reportable Urine Bacteria Trace Blood Type O Positive Rho(D) Type Positive Antibody Screen Negative Crossmatch See Detail Vitals: Last Vital Signs Temp 98.2 F 09/04/20 03:52 Pulse 103 H 09/04/20 03:52 Resp 17 09/04/20 03:52 BP 117/80 09/04/20 03:52 Pulse Ox 93 09/04/20 03:52 Discharge Plan Discharge Patient Disposition: Home Condition: Stable Prescriptions: New hydrocodone-acetaminophen 5-325 mg tablet 1 tab PO Q6H PRN (Reason: pain) Qty: 14 RF: 0 Continued Multiple Vitamin, Womens Tablet 1 tab PO DAILY RF: 0 biotin 10,000 mcg capsule 10,000 mcg PO DAILY RF: 0 potassium chloride 20 mEq tablet,ER particles/crystals 20 meq PO BID RF: 0 lorazepam 1 mg tablet See Rx Instructions PO BID PRN (Reason: anxiety) Qty: 40 RF: 2 hydrochlorothiazide 25 mg tablet 25 mg PO QAM 90 Days Qty: 90 RF: 3 Calcium 500 + D (D3) 1 tab PO DAILY RF: 0 atorvastatin 40 mg tablet 20 mg PO DAILY RF: 0 Discharge Orders: Discharge Order (Routine); Ordered 09/04/20 Ordered By: He Long Referrals: He Long MD [Physician] - 1 week Discharge Diet: Usual diet Discharge Activity: Limit activity as instructed Activity Restrictions/Additional Instructions: Remove surgical bandage tomorrow. May begin daily showers tomorrow or if desired No swimming or tub baths x2 weeks No heavy lifting or pulling x2 weeks Report any increasing pain, shortness of breath, incision swelling or redness, fever, or incision drainage. Please contact oncology office (Dr. Alvarado), to confirm follow-up appointment Discharge Attestations Time Spent in Discharge Care*: less than 30 min Specific Discharge Activities: educating patient, educating and/or supporting family/caregiver, documenting/other paperwork and evaluating patient/reviewing data Status at Discharge: Cognitive status at discharge: cognitively intact, Behavioral status at discharge: cooperative, Functional status at discharge: independent ambulation Overall status at discharge: patient is back to baseline Quality Metrics Clinical Quality Measures During this hospital stay, did patient experience: None Coding Level of Care Code Acute Infertility Medical Assistant for Tone Echeverria
[2020-09-04 08:00] VITALS: BP 124/84; PULSE 96; RESP 19; TEMP 36.6; O2SAT 95
--- NOTE | 2020-09-04 09:35 | PC.NURSE ---
DISCHARGE INSTRUCTIONS DISCHARGE INSTRUCTIONS GIVEN TO BOTH PT AND - BOTH VERBALIZE UNDERSTANDING - HYDROCODONE AT SIDE MEDS TO BED
[2020-09-04 09:36] VITALS: BP 124/84; PULSE 96; RESP 19; TEMP 36.6; O2SAT 95
[2020-09-10 06:36] LABS: Miscellaneous Test See Scanned Lab Rpt
== END 2020-09-04 09:50 | disposition home or self-care (01) ==
LOC: MEDSURG 13:39
PROVIDERS: Admitting Provider Thoracic Surgery (Cardiothoracic Vascular Surgery); PCP Family Medicine; Visit Provider Thoracic Surgery (Cardiothoracic Vascular Surgery)
PROC: (CPT 39402; principal; 2020-09-03 09:20)
DX: C38.3 Malignant neoplasm of mediastinum, part unspecified (principal); Z87.891 Personal history of nicotine dependence; I10 Essential (primary) hypertension; E78.5 Hyperlipidemia, unspecified; F41.9 Anxiety disorder, unspecified
CPT/HCPCS: 39402; 36415; 71045; 80048; 81001; 85025; 85610; 86850; 86900; 86920; 88184; 88185; 88305; 93005; 96360; 96361; 96365; G0378; J1100; J1200; J1885; J2250; J2405; J2704; J2765; J3010; J3370; J3490; J7030; J7050

== ENCOUNTER 2020-09-12 06:01 | Outpatient (CLI) | payer BC, OTHER, SELFPAY ==
--- NOTE | 2020-09-15 15:18 | ONC FU_ITS ---
Dr. Alvarado Patient Follow-Up Note Patient: Sarahi Christopher Unit #: [id number]: 1970 Dicatated By: Anthony Alvarado M.D.Date of Visit:Sep 12, 2020 Onc Med Follow-up/Prog Note Chief Complaint: Lung cancer. History of Present Illness: This is a 50-year-old woman with nonsmall cell lung cancer presenting as mediastinal mass. She had presented with progressively worsening hoarseness since early June. She was seen by Dr. Major on 08/01/2020. Her flexible laryngoscopy was unrevealing. Further evaluation with neck CT on 08/16/2000 revealed a large neoplastic appearing mass in the medial left upper lung/mediastinum measuring 5.2 x 3.9 cm with superior inferior extension greater than 5 cm. There was extension into the AP window. Also noted was an ill-defined area of decreased attenuation at the tongue base and a small nodule involving the base of the uvula. Small cervical chain lymph nodes were noted bilaterally bilaterally, the largest on the right measuring 8 mm. I had seen her initially on 08/24/2020. Her staging CT scans of the chest, abdomen, and pelvis showed a 5.1 x 3.3 x 5.4 cm heterogeneously enhancing anterior mediastinal mass abutting the AP window. There was associated encasement of the distal left mainstem bronchus with associated narrowing, and there was encasement and narrowing of the distal main pulmonary artery. There was no obvious metastatic disease. As the tumor did not appear to be accessible for CT directed needle biopsy, she was referred to Dr. Long and on 09/03/2020 she underwent left-sided open mediastinotomy with biopsies of AP window mass. 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 By IHC, the tumor cells were p63 positive and TTF-1 positive. The Ki-67 was high at 50%. Her staging PET/CT on 09/08/2020 showed an FDG avid 3.8 cm superior left hilar mass with mediastinal invasion, SUV 16.5, consistent with primary lung malignancy with mediastinal invasion. There was anterior mediastinal and left-sided parasternal activity which was felt to represent postsurgical inflammatory uptake. Small mediastinal lymph nodes were too small to reliably characterize. The left true vocal cord was noted to be flaccid and FDG negative, indicative of recurrent laryngeal nerve involvement. There were no other areas of abnormal uptake. Patient is seen today to discuss further management. She continues to have hoarseness. She has some shortness of breath, but no difficulty swallowing. Medications: Atorvastatin Calcium 1 (20 mg) Tablet Oral daily, Biotin 1 (46162 mcg) Tablet Oral daily, Calcium Citrate 1 (200 mg) Tablet Oral daily, hydroCHLOROthiazide 1 (25 mg) Tablet Oral daily, Ibuprofen 1 (600 mg) Tablet Oral t.i.d. PRN, LORazepam 1 (1 mg) Tablet Oral t.i.d. PRN, Naproxen Sodium 1 (220 mg) Tablet Oral daily PRN, One-Daily Multi Vitamins 1 Tablet Oral daily, Potassium Chloride ER 1 (20 meq) Tablet, controlled release Oral b.i.d. Allergies: Bavarian Cream, Egg, Penicillins, Robitussin 12 Hour Cough, and Unpasteurized Dairy . Vital Signs: Performed on Sep 12, 2020 09:25 Height - 62.00 in Weight - 167.4 lbs (LOW) BSA - 1.77 sq.m BMI - 30.62 (HIGH) Temperature - 97.7 F (LOW) Pulse - 90 /min Respiration - 16 /min BP - 124/86 mm(hg) O2 Sat - 96 % Pain - 2 Lab/Imaging: Test performed on Aug 24, 2020 12:05 LDH (Total) 195 U/L Sodium 139 mmol/L TSH 1.76 uIU/mL Potassium 3.7 mmol/L Chloride 100 mmol/L CO2 29 mmol/L Anion Gap 13.7 BUN 17 mg/dL Creatinine 0.8 mg/dL Cr Clearance (Est) 100.8000 mL/min eGFR 75.6 mL/min Glucose 89 mg/dL Osmolality - Calculated 289 mOsm/kg Calcium 10.6 mg/dL Protein, Total 7.7 g/dL Albumin 4.6 g/dL Globulin 3.1 g/dL Bilirubin, Total 0.2 mg/dL ALT (SGPT) 42 U/L AST (SGOT) 26 U/L Alkaline Phosphatase 75 IU/L ESR (Sed Rate) 22 mm/hr PT 12.50 SECONDS WBC 10.3 10 3/uL INR 0.91 RBC 4.60 10 6/uL HGB 14.0 g/dL HCT 41.3 % MCV 89.8 fL MCH 30.4 pg MCHC 33.9 g/dL RDW 12.1 % Platelet Count 418 10 3/cmm MPV 9.0 fL Neutrophils 6.06 10 3/uL Lymphocytes 3.2 10 3/uL Monocytes 0.9 10 3/uL Eosinophils 0.0 10 3/uL Basophils 0.1 10 3/uL Neutrophil % 58.9 % Lymphocyte % 31.0 % Monocyte % 8.7 % Eosinophil % 0.3 % Basophils % 0.7 % NRBC % 0 % Problem List: 1. 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 By clinical evaluation, her disease is stage IIIA (T4, N0, M0) with evidence of mediastinal invasion and with evidence of recurrent laryngeal nerve involvement. 2. Hypertension. 3. Hyperlipidemia. 4. TMJ disorder. 5. Chronic anxiety. Problems Addressed with this Encounter and Plan: Patient with poorly differentiated non-small cell carcinoma involving the hilar region of the left lung. She underwent left-sided open mediastinotomy with biopsies of AP window mass on 09/03/2020. 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 By clinical evaluation, her disease is stage IIIA (T4, N0, M0) with evidence of mediastinal invasion and with evidence of recurrent laryngeal nerve involvement. The pathology results and PET/CT findings were reviewed with the patient and her . The findings now are consistent with a primary non-small cell lung cancer with mediastinal invasion. Per NCCN guidelines, the recommended treatment for T4, N0 disease is surgical resection. Given the CT findings, it is uncertain at this point whether or not her disease is resectable. I have been in contact with Dr. Kemp at [facility], and I will have her evaluated there to determine if she is a surgical candidate. If not, she will return here for standard chemoradiation. In the meantime, though, I will request a next generation sequencing study on her biopsy. Signed By: Anthony Alvarado M.D. <<Signature on File>>
== END 2020-09-12 06:02 | disposition home or self-care (01) ==
LOC: ONCMED 06:03
PROVIDERS: Absent Provider Radiology Radiation Oncology; PCP Family Medicine; Visit Provider Internal Medicine Medical Oncology
DX: C34.02 Malignant neoplasm of left main bronchus (principal); C79.89 Secondary malignant neoplasm of other specified sites; C78.1 Secondary malignant neoplasm of mediastinum; I10 Essential (primary) hypertension; E78.5 Hyperlipidemia, unspecified; F41.9 Anxiety disorder, unspecified; M26.609 Unspecified temporomandibular joint disorder, unspecified side
CPT/HCPCS: 99214

== ENCOUNTER 2020-09-20 09:55 | Outpatient (CLI) | payer BC, OTHER, SELFPAY ==
--- NOTE | 2020-09-20 10:02 | MR_ITS ---
WS: [id number] MRI BRAIN WITH AND WITHOUT CONTRAST HISTORY: HX OF Cancer; non SMALL CELL LUNG CANCER COMPARISON: None available. TECHNIQUE: Multiplanar imaging performed through the brain with MultiHance 15 ml's IV. No acute infarcts are seen. Rangel-white matter differentiation is well preserved. No susceptibility artifacts or prior lacunar infarcts. Ventricles and extra-axial spaces are normal. Clivus and pituitary gland are normal. Visualized posterior fossa and brainstem are also normal. Postcontrast images are negative for masses or vascular malformations. Dural venous sinuses are normal. Paranasal sinuses: Well aerated with no significant disease. Mastoid air cells: Normal. Calvarium and scalp: Normal. MR/MR head wo/w con [id number] IMPRESSION: 1. Normal MRI brain with contrast. 2. No metastatic disease to the brain.
[2020-09-20] MEDS: gadobenate dimeglumine 20 mL vial IV (11:48)
== END 2020-09-20 09:56 | disposition home or self-care (01) ==
PROVIDERS: PCP Family Medicine; Visit Provider Internal Medicine Medical Oncology
DX: C34.02 Malignant neoplasm of left main bronchus (principal)
CPT/HCPCS: 70553; 87635; A9577

== ENCOUNTER 2020-09-24 05:43 | Day surgery (SDC) | payer BC, OTHER, SELFPAY ==
[2020-09-21 09:00] VITALS: BMI 31.0
--- NOTE | 2020-09-24 | SCC_ITS ---
Procedure Done: Right subclavian Port-A-Cath placement 27.7 seconds of fluoroscopic guidance, for a cumulative dose of 5.14 mGy, was provided to Dr. Long by the radiology department. C-arm images of the chest were saved for the patient's permanent record. VIVIAN
[2020-09-24 06:16] VITALS: BP 119/85; PULSE 89; RESP 18; TEMP 36.6; O2SAT 96
--- NOTE | 2020-09-24 06:29 | W.PM.OPSUD ---
Surgery/Procedure H&P Update DATE OF PROCEDURE: September 24, 2020 DATE H&P PERFORMED: 09/14/20 H&P UPDATE INFORMATION: I have reviewed H&P completed within last 30 days, I have examined patient prior to procedure and No changes to prior documentation PREOP DIAGNOSIS: Lung carcinoma PRIMARY INDICATION FOR PROCEDURE: Port-A-Cath placement; adenocarcinoma of lung PLANNED PROCEDURE: Operation Date: 09/24/20 07:00 Proposed Procedures p Portacath Insertion(Not Applicable) - He Long MD
[2020-09-24 06:39] LABS: Basophils # 0.1 10^3/uL (0.0-0.1); Basophils % 0.8 %; Eosinophils # 0.1 10^3/uL (0.0-0.8); Eosinophils % 1.4 %; Hematocrit 39.4 % (37.0-47.0); Hemoglobin 13.3 g/dL (11.5-15.3); Lymphocytes # 2.3 10^3/uL (0.8-4.8); Lymphocytes % 35.4 %; Mean Corpuscular HGB Conc 33.8 g/dL (30.0-36.0); Mean Corpuscular Hemoglobin 29.8 pg (28.0-34.0); Mean Corpuscular Volume 88.1 fL (81-99); Mean Platelet Volume 9.2 fL (7.4-10.4); Monocytes # 0.7 10^3/uL (0.2-0.9); Monocytes % 11.3 %; Neutrophils # 3.32 10^3/uL (1.8-7.7); Neutrophils % 50.8 %; Nucleated Red Blood Cells % 0 %; Platelet Count 399 10^3/cmm (130-400); Red Blood Count 4.47 10^6/uL (4.1-5.3); White Blood Count 6.5 10^3/uL (4.0-10.0)
--- NOTE | 2020-09-24 06:43 | P.ANESASSM_ITS ---
Pre-Anesthetic Assessment Pre-Anesthetic Assessment: Height/Weight: Height 1.56 m Weight 75.75 kg Temp Pulse Resp BP Pulse Ox 97.8 F 89 18 119/85 96 09/24/20 06:16 09/24/20 06:16 09/24/20 06:16 09/24/20 06:16 09/24/20 06:16 Preop Diagnosis: Lung carcinoma Proposed Procedure: Operation Date: 09/24/20 07:00 Proposed Procedures p Portacath Insertion(Not Applicable) - He Long MD Was Beta Paula taken within 24 hours: N/A Last intake: Intake Last Liquid Date 09/23/20 Last Liquid Time 22:00 Last Solid Date 09/23/20 Last Solid Time 21:00 Social: Social History: Tobacco and No alcohol Exam: Pre-Anes Outpt Exam: alert, oriented x 3 and regular rate & rhythm Additional Exam Findings (including area of procedure): BBS clear Airway: Submandibular: WNL Cervical ROM: WNL MP: 2 Dentition: Full Pulmonary: Pulmonary: COPD CV/HEM: Comments: Mediastinal mass Metabolic: Metabolic: Morbid obesity Neuropsych: Neuropsych: Anxiety Anesthetic Plan: ASA status: 3 Anesthesia: MAC Risk of > 500 ml blood loss (7ml/kg in children): No PFSH Anesthesia PFSH: Medical History Anxiety Estrogen deficiency Hypercholesteremia Tobacco abuse Family History Mother Cancer lymphoma Father Cancer lung, liver Social History Smoking and tobacco status: former smoker Quit status (tobacco): has quit using tobacco Year quit tobacco: 2019 Second hand smoke exposure: No Alcohol intake: current Alcohol intake frequency: holidays/special occasions only Lives independently: Yes Household members: spouse Housing: House service: No History of recent travel: No Current gender identity: Female Special karsten needs: No Data Anesthesia CBC & Chem 7: 09/24/20 06:26 09/24/20 06:26 Other Labs: Laboratory Results - last 48 hr 09/24/20 06:26 WBC 6.5 RBC 4.47 Hgb 13.3 Hct 39.4 MCV 88.1 MCH 29.8 MCHC 33.8 RDW 12.0 L Plt Count 399 MPV 9.2 Neut % (Auto) 50.8 Lymph % (Auto) 35.4 [place] % (Auto) 11.3 Eos % (Auto) 1.4 Baso % (Auto) 0.8 Neut # (Auto) 3.32 Lymph # (Auto) 2.3 [place] # (Auto) 0.7 Eos # (Auto) 0.1 Baso # (Auto) 0.1 Nucleated RBC % (auto) 0 Nucleated RBCs # 0.0 Cardiac Studies: No Data to Display
--- NOTE | 2020-09-24 06:46 | SC_ITS ---
WS: [id number] INTRAOPERATIVE TECHNIQUE: 2 Spot fluoroscopic images for intraoperative purposes. FLUOROSCOPY TIME: 27.7 seconds CLINICAL INFORMATION: portacath COMPARISON: None. FINDINGS: Right Port-A-Cath partially visualized with tip in the distal SVC. SC/C-arm FL for CVA [id number] IMPRESSION: Images obtained for intraoperative purposes.
[2020-09-24] MEDS: sodium chloride 0.9% 1,000 ML 30 ML IV (06:52)
[2020-09-24 06:58] LABS: Blood Urea Nitrogen 19 mg/dL (6-20); Calcium 9.7 mg/dL (8.5-10.5); Carbon Dioxide 25 mmol/L (22-29); Chloride 97 mmol/L (98-107); Glomerular Filtration Rate 88.2 mL/min (90-130); Glucose 95 mg/dL (65-115); Osmolality Calculated 272 mOsm/kg (285-295); Sodium 130 mmol/L (136-145)
[2020-09-24] MEDS: vancomycin 1,000 MG SDV 1000 MG IRRIGATION (07:15)
[2020-09-24] MEDS: heparin, porcine 1,000 unit/mL INJ 10 mL 10000 UNIT IRRIGATION (07:15)
[2020-09-24] MEDS: lidocaine 1% INJ 20 mL SUBCUT (07:15)
[2020-09-24 07:22] LABS: Add Urine Microscopic? YES; Bilirubin Urine Neg (Negative); Blood Urine 3+ (Negative); Glucose Urine UA Norm (Normal); Ketones Urine Negative (Negative); Leukocyte Esterase Urine Negative (Negative); Nitrate Urine Negative (Negative); Protein Urine Neg (Negative); Urine Appearance Clear (CLEAR); Urine Color Straw (Yellow); Urobilinogen Urine Norm (Negative); pH Urine 5 (5-7)
[2020-09-24 07:23] LABS: Add Urine Culture? No; Bacteria Urine 1+ /hpf; WBC Urine RARE /hpf (0-5)
[2020-09-24 07:31] LABS: Anion Gap 11.7 (5-19); Potassium 3.7 mmol/L (3.5-5.1)
--- NOTE | 2020-09-24 08:14 | PM.OP ---
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 Biopsy was obtained through a left-sided [place] procedure. She been evaluated by Dr. Alvarado from oncology and was referred to [facility] to consider resective therapy. Upfront chemotherapy is been recommended prior to completion of that evaluation. Therefore, we have recommended Port-A-Cath placement. Given the location of the lesion on the left side I have recommended a right-sided approach. Details the risk of the procedure were carefully and frankly discussed. Proper consents have been reviewed and signed. Procedure: Ms. Christopher was taken to the operating room and placed on the OR table in supine position. Appropriate sedation and relaxation were provided by our anesthesia colleagues. Her entire upper chest and neck was sterilely prepped and draped. 1% lidocaine was infiltrated for local anesthesia. The patient was then placed in Trendelenburg position. Utilizing modified Seldinger technique, the right subclavian vein was engaged with needle and aspirated blood. A guidewire was then placed into position. Position was confirmed by fluoroscopy. Needle was withdrawn. The patient was then placed in the supine position. A #15 scalpel blade was used to incise the skin at the exit point from the guidewire and continued laterally and inferiorly. Utilizing cautery for meticulous hemostasis, a subcutaneous pocket was then created to allow for placement of the Port-A-Cath reservoir. Antibiotic-soaked sponge was then placed in the subcutaneous pocket. Port-A-Cath tubing was measured to the appropriate length and then cut. It was then connected to the Port-A-Cath reservoir, secured, and the entire system was flushed with heparin solution. The dilator, followed by tear-a-way sheath, were placed over the guidewire. The guidewire and dilator were removed intact. The Port-A-Cath vascular tubing was then placed through the sheath, which was then removed. The entire system was interrogated by fluoroscopy throughout the procedure. [place] needle was placed through the Port-A-Cath diaphragm, easily aspirated blood, and flushed with heparin lock solution. The Port-A-Cath reservoir was then secured to the floor of the subcutaneous pocket with suture. The pocket was then carefully irrigated with antibiotic solution. Hemostasis was confirmed. The wound was then closed in 2 layers of 3-0 Vicryl suture subcutaneously. The skin was reapproximated carefully in a subcuticular manner with 4-0 Monocryl suture. A sterile dressing was applied followed by a compressive dressing. At the completion of the procedure there are equal breath sounds bilaterally. Vital signs remained stable. Ms. Christopher was then transported to PACU. Chest x-ray is pending. I counseled with her family at the completion of the procedure.
[2020-09-24 08:16] VITALS: BP 123/82; PULSE 81; RESP 18; TEMP 36.5; O2SAT 95
[2020-09-24 08:20] VITALS: BP 120/85; PULSE 75; RESP 16; O2SAT 96
[2020-09-24 08:25] VITALS: BP 116/89; PULSE 75; RESP 18; TEMP 36.5; O2SAT 96
[2020-09-24 08:33] VITALS: BP 118/84; PULSE 70; RESP 18; TEMP 36.5; O2SAT 96
--- NOTE | 2020-09-24 08:39 | XRR_ITS ---
PROCEDURE INFORMATION: Exam: XR Chest Exam date and time: 09/24/2020 8:45 AM Age: 50 years old Clinical indication: Device placement; Other: Cabg; Prior surgery; Surgery date: Post-operative (0-2 days); Additional info: Post op cabg TECHNIQUE: Imaging protocol: XR of the chest Views: 1 view. COMPARISON: CR XR chest 1V portable [id number] 09/03/2020 1:42 PM FINDINGS: Lungs: Again noted is the superior mediastinal mass on the left side which has not significantly changed since previous study. The remaining lung zones are clear. Pleural spaces: No pleural effusion is seen. Heart/Mediastinum: The heart is not enlarged. Vasculature: A MediPort catheter is present with the tip projecting in the SVC. Bones/joints: Unremarkable. XR/XR chest 1V portable [id number] IMPRESSION: 1. No significant change in the left superior mediastinal mass. 2. The left pulmonary infiltrates that were present on the previous chest x-ray from 09/03/2020 have cleared.
[2020-09-24 08:49] VITALS: BP 112/82; PULSE 72; RESP 18; TEMP 36.5; O2SAT 96
--- NOTE | 2020-09-24 12:23 | ANE.PACU2 ---
Inpatient post-anesthesia follow up: Airway intact: Yes Vital signs: Temperature 97.7 F Pulse Rate 72 Respiratory Rate 18 Blood Pressure 112/82 Pulse Oximetry 96 Oxygen Delivery Me thod Room Air Oxygen Flow Rate Fraction of Inspir ed Oxygen Hydration adequate: Yes Nausea and vomiting: No Pain level: 1 Mental status: Baseline
== END 2020-09-24 09:03 | disposition home or self-care (01) ==
PROVIDERS: PCP Family Medicine; Visit Provider Thoracic Surgery (Cardiothoracic Vascular Surgery)
PROC: (CPT 36561; principal; 2020-09-24 07:00)
DX: C34.90 Malignant neoplasm of unspecified part of unspecified bronchus or lung (principal); J44.9 Chronic obstructive pulmonary disease, unspecified; E66.01 Morbid (severe) obesity due to excess calories; Z68.31 Body mass index [BMI] 31.0-31.9, adult; F41.9 Anxiety disorder, unspecified; E78.00 Pure hypercholesterolemia, unspecified
CPT/HCPCS: 36561; 36415; 71045; 77001; 80048; 81001; 85025; 96365; C1788; J0690; J1644; J2001; J2250; J2405; J2704; J3010; J3370; J7030

== ENCOUNTER 2020-09-26 05:54 | Outpatient (CLI) | payer BC, OTHER, SELFPAY ==
[2020-09-26] MEDS: sodium chloride 0.9% 250 ML 75 ML IV ×2 (10:00→14:00)
[2020-09-26] MEDS: palonosetron 0.25 mg/5 mL SDV IVP (10:00)
[2020-09-26] MEDS: famotidine 20 mg/2 mL INJ IVP (10:02)
[2020-09-26] MEDS: diphenhydrAMINE 50 mg/mL SDV 1mL 25 MG IVP (10:05)
[2020-09-26] MEDS: fosaprepitant 150 MG in sodium chloride 0.9% 150 ML 300 MG IV (10:08)
--- NOTE | 2020-09-26 19:29 | ONC FU_ITS ---
Dr. Alvarado Patient Follow-Up Note Patient: Sarahi Christopher Unit #: [id number]: 1970 Dicatated By: Anthony Alvarado M.D.Date of Visit:Sep 26, 2020 Onc Med Follow-up/Prog Note Chief Complaint: Lung cancer. 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 She had presented with progressively worsening hoarseness since early June. She was seen by Dr. Major on 08/01/2020. Her flexible laryngoscopy was unrevealing. Further evaluation with neck CT on 08/16/2000 revealed a large neoplastic appearing mass in the medial left upper lung/mediastinum measuring 5.2 x 3.9 cm with superior inferior extension greater than 5 cm. There was extension into the AP window. Also noted was an ill-defined area of decreased attenuation at the tongue base and a small nodule involving the base of the uvula. Small cervical chain lymph nodes were noted bilaterally bilaterally, the largest on the right measuring 8 mm. I had seen her initially on 08/24/2020. Her staging CT scans of the chest, abdomen, and pelvis showed a 5.1 x 3.3 x 5.4 cm heterogeneously enhancing anterior mediastinal mass abutting the AP window. There was associated encasement of the distal left mainstem bronchus with associated narrowing, and there was encasement and narrowing of the distal main pulmonary artery. There was no obvious metastatic disease. As the tumor did not appear to be accessible for CT directed needle biopsy, she was referred to Dr. Long and on 09/03/2020 she underwent left-sided open mediastinotomy with biopsies of AP window mass. 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 By IHC, the tumor cells were p63 positive and TTF-1 positive. The Ki-67 was high at 50%. Her staging PET/CT on 09/08/2020 showed an FDG avid 3.8 cm superior left hilar mass with mediastinal invasion, SUV 16.5, consistent with primary lung malignancy with mediastinal invasion. There was anterior mediastinal and left-sided parasternal activity which was felt to represent postsurgical inflammatory uptake. Small mediastinal lymph nodes were too small to reliably characterize. The left true vocal cord was noted to be flaccid and FDG negative, indicative of recurrent laryngeal nerve involvement. There were no other areas of abnormal uptake. As such, by thank clinical evaluation, her disease was stage IIIA (T4, N0, M0). With those findings, she was referred to Dr. Joel Kemp at [facility] for consideration of surgical resection. Based on her pulmonary function, he felt that she would potentially be a surgical candidate, but he did recommend a course of neoadjuvant chemotherapy prior to attempting resection. She underwent placement of Port-A-Cath venous access device on 09/24/2020, and she is here now for initiation of neoadjuvant chemotherapy with carboplatin/paclitaxel. She says she is feeling about the same. She does have some fatigue, but she is doing light work and she is doing some walking. Her ECOG score is 1. She has good appetite. She has not had fever or night sweats. She does have some hot flashes. She continues to have hoarseness and she has shortness of breath with activity. She has nonproductive cough. She is having some chest discomfort, which she just associates with healing. She has no GI or complaints. She has no significant joint or bone pain. She has had some headaches and she occasionally has dizziness. She has no focal neurologic symptoms. Medications: Atorvastatin Calcium 1 (20 mg) Tablet Oral daily, Biotin 1 (14732 mcg) Tablet Oral daily, Calcium Citrate 1 (200 mg) Tablet Oral daily, hydroCHLOROthiazide 1 (25 mg) Tablet Oral daily, Ibuprofen 1 (600 mg) Tablet Oral t.i.d. PRN, Levaquin (500 mg) Tablet Oral daily for 7 days, LORazepam 1 (1 mg) Tablet Oral t.i.d. PRN, Naproxen Sodium 1 (220 mg) Tablet Oral daily PRN, One-Daily Multi Vitamins 1 Tablet Oral daily, Potassium Chloride ER 1 (20 meq) Tablet, controlled release Oral b.i.d. Allergies: Bavarian Cream, Egg, Penicillins, Robitussin 12 Hour Cough, and Unpasteurized Dairy . Vital Signs: Performed on Sep 26, 2020 08:36 Height - 62.00 in Weight - 166.2 lbs (LOW) BSA - 1.77 sq.m BMI - 30.40 (HIGH) Temperature - 97.1 F (LOW) Pulse - 118 /min (HIGH) Respiration - 18 /min BP - 132/84 mm(hg) O2 Sat - 97 % Pain - 4 Fatigue - 3 Physical Examination: Constitutional - She looks good generally, Eyes - Sclerae nonicteric. Conjunctivae clear, ENMT - No lesions noted in the oral cavity, Hematologic/Lymphatic - No cervical, clavicular, or axillary adenopathy, Respiratory - Lungs show slightly coarse breath sounds bilaterally, Cardiovascular - Heart rhythm is regular. There is no murmur, gallop, or rub noted, Abdomen - Soft. Liver and spleen are not enlarged. There is no abdominal mass or ascites noted and there is no inguinal adenopathy, Extremities - No edema, Neurologic - No focal neurologic deficits noted. Lab/Imaging: Test performed on Sep 26, 2020 09:03 Creatinine 0.7 mg/dL Cr Clearance (Est) 113.97 mL/min Test performed on Aug 24, 2020 12:05 LDH (Total) 195 U/L Sodium 139 mmol/L TSH 1.76 uIU/mL Potassium 3.7 mmol/L Chloride 100 mmol/L CO2 29 mmol/L Anion Gap 13.7 BUN 17 mg/dL eGFR 75.6 mL/min Glucose 89 mg/dL Osmolality - Calculated 289 mOsm/kg Calcium 10.6 mg/dL Protein, Total 7.7 g/dL Albumin 4.6 g/dL Globulin 3.1 g/dL Bilirubin, Total 0.2 mg/dL ALT (SGPT) 42 U/L AST (SGOT) 26 U/L Alkaline Phosphatase 75 IU/L ESR (Sed Rate) 22 mm/hr PT 12.50 SECONDS WBC 10.3 10 3/uL INR 0.91 RBC 4.60 10 6/uL HGB 14.0 g/dL HCT 41.3 % MCV 89.8 fL MCH 30.4 pg MCHC 33.9 g/dL RDW 12.1 % Platelet Count 418 10 3/cmm MPV 9.0 fL Neutrophils 6.06 10 3/uL Lymphocytes 3.2 10 3/uL Monocytes 0.9 10 3/uL Eosinophils 0.0 10 3/uL Basophils 0.1 10 3/uL Neutrophil % 58.9 % Lymphocyte % 31.0 % Monocyte % 8.7 % Eosinophil % 0.3 % Basophils % 0.7 % NRBC % 0 % Problem List: 1. Poorly differentiated non-small cell carcinoma involving the hilar region of the left lung, diagnosed by left-sided open mediastinotomy on 09/03/2020. 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 By clinical evaluation, her disease was stage IIIA (T4, N0, M0) with evidence of mediastinal invasion and with evidence of recurrent laryngeal nerve involvement. 2. Hypertension. 3. Hyperlipidemia. 4. TMJ disorder. 5. Chronic anxiety. Problems Addressed with this Encounter and Plan: Patient with poorly differentiated non-small cell carcinoma involving the hilar region of the left lung. She underwent left-sided open mediastinotomy with biopsies of AP window mass on 09/03/2020. 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 By clinical evaluation, her disease was stage IIIA (T4, N0, M0) with evidence of mediastinal invasion and with evidence of recurrent laryngeal nerve involvement. She was then seen by Dr. Joel Kemp at [facility] for consideration of surgical resection, which is the recommended treatment for T4, N0 disease per NCCN guidelines. Based on her pulmonary function, she was felt to be potentially resectable, but it was recommended that she first have course of neoadjuvant chemotherapy. She is here now to begin cycle 1 of a planned course of treatment with 4-6 cycles of carboplatin/paclitaxel chemotherapy. I reviewed anticipated side effects with the chemotherapy which may include nausea/vomiting, alopecia, fatigue, low blood counts, and neuropathy, among others. She will require close monitoring for toxicities. Blood counts will be checked weekly, and she will have a visit for toxicity check at day 8. She will be scheduled for a follow-up visit in 3 weeks. In the meantime, additional pathologic evaluation with a next generation sequencing study has been requested. Signed By: Anthony Alvarado M.D. <<Signature on File>>
== END 2020-09-26 05:55 | disposition home or self-care (01) ==
LOC: ONCMED 05:55
PROVIDERS: PCP Family Medicine; Visit Provider Internal Medicine Medical Oncology
DX: Z51.11 Encounter for antineoplastic chemotherapy (principal); C34.02 Malignant neoplasm of left main bronchus; C79.89 Secondary malignant neoplasm of other specified sites; Z79.899 Other long term (current) drug therapy
CPT/HCPCS: 96367; 96375; 96413; 96415; 96417; 99215; J1100; J1200; J1453; J2469; J3490; J7030; J7040; J7050; J9045; J9267

== ENCOUNTER 2020-10-04 06:10 | Outpatient (CLI) | payer BC, SELFPAY ==
[2020-10-04 12:24] LABS: Basophils % 0.7 %; Eosinophils # 0.1 10^3/uL (0.0-0.8); Eosinophils % 2.3 %; Hematocrit 35.5 % (37.0-47.0); Hemoglobin 11.9 g/dL (11.5-15.3); Lymphocytes # 1.4 10^3/uL (0.8-4.8); Lymphocytes % 32.3 %; Mean Corpuscular HGB Conc 33.5 g/dL (30.0-36.0); Mean Corpuscular Hemoglobin 30.1 pg (28.0-34.0); Mean Corpuscular Volume 89.6 fL (81-99); Mean Platelet Volume 10.1 fL (7.4-10.4); Monocytes # 0.4 10^3/uL (0.2-0.9); Monocytes % 8.8 %; Neutrophils # 2.38 10^3/uL (1.8-7.7); Neutrophils % 55.4 %; Nucleated Red Blood Cells % 0 %; Platelet Count 206 10^3/cmm (130-400); Red Blood Count 3.96 10^6/uL (4.1-5.3); Red Cell Distribution Width 11.9 % (12.1-15.1); White Blood Count 4.3 10^3/uL (4.0-10.0)
--- NOTE | 2020-10-15 00:25 | ONC FU_ITS ---
[facility] Patient Note Patient: Sarahi Christopher Unit #: [id number]: 1970 Dictated By: Umair DiegoDate of Visit: Oct 04, 2020 Onc MED Follow-Up/Prog Note Chief Complaint: Lung cancer. 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 She had presented with progressively worsening hoarseness since early June. She was seen by Dr. Major on 08/01/2020. Her flexible laryngoscopy was unrevealing. Further evaluation with neck CT on 08/16/2000 revealed a large neoplastic appearing mass in the medial left upper lung/mediastinum measuring 5.2 x 3.9 cm with superior inferior extension greater than 5 cm. There was extension into the AP window. Also noted was an ill-defined area of decreased attenuation at the tongue base and a small nodule involving the base of the uvula. Small cervical chain lymph nodes were noted bilaterally bilaterally, the largest on the right measuring [address] Alvarado had seen her initially on 08/24/2020. Her staging CT scans of the chest, abdomen, and pelvis showed a 5.1 x 3.3 x 5.4 cm heterogeneously enhancing anterior mediastinal mass abutting the AP window. There was associated encasement of the distal left mainstem bronchus with associated narrowing, and there was encasement and narrowing of the distal main pulmonary artery. There was no obvious metastatic disease. As the tumor did not appear to be accessible for CT directed needle biopsy, she was referred to Dr. Long and on 09/03/2020 she underwent left-sided open mediastinotomy with biopsies of AP window mass. 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 By IHC, the tumor cells were p63 positive and TTF-1 positive. The Ki-67 was high at 50%. Her staging PET/CT on 09/08/2020 showed an FDG avid 3.8 cm superior left hilar mass with mediastinal invasion, SUV 16.5, consistent with primary lung malignancy with mediastinal invasion. There was anterior mediastinal and left-sided parasternal activity which was felt to represent postsurgical inflammatory uptake. Small mediastinal lymph nodes were too small to reliably characterize. The left true vocal cord was noted to be flaccid and FDG negative, indicative of recurrent laryngeal nerve involvement. There were no other areas of abnormal uptake. As such, by thank clinical evaluation, her disease was stage IIIA (T4, N0, M0). With those findings, she was referred to Dr. Joel Kemp at [facility] for consideration of surgical resection. Based on her pulmonary function, he felt that she would potentially be a surgical candidate, but he did recommend a course of neoadjuvant chemotherapy prior to attempting resection. She underwent placement of Port-A-Cath venous access device on 09/24/[address] Long, and she began neoadjuvant chemotherapy with carboplatin/paclitaxel on 09/26/2020. Mrs. Hollis is here today for follow-up. She states overall she is doing well. She denies any new concerns. She states overall her breathing is better. She denies any fever or chills. She denies any mouth sores, sore throat or difficulty swallowing. She denies any hemoptysis. She does have occasional productive cough but states that is not new and is overall improved. She denies any chest pain or palpitations. She had a little nausea but states that it was not worth taking medication over. She is eating well. She denies any acid reflux symptoms at this time. She is active. She does tire easily but recovers well with rest. She denies any constipation. She denies any diarrhea. She states she has numbness in her shoulder but that is chronic. It iss no worse than normal. She denies any peripheral neuropathy symptoms. Her ECOG is 0. Past Medical History: Anxiety Hypercholesterolemia Hypertension TMJ disorder Past Surgical History: Cervical Laser Surgery - Pre-Cancer Cells removed Excision of 3 benign subcutaneous nodules Tonsillectomy Coronary angiography in 2018 Laparoscopic-assisted vaginal hysterectomy in 2004 Allergies: Bavarian Cream, Egg, Penicillins, Robitussin 12 Hour Cough, and Unpasteurized Dairy . Medications: Atorvastatin Calcium 1 (20 mg) Tablet Oral daily Biotin 1 (26148 mcg) Tablet Oral daily Calcium Citrate 1 (200 mg) Tablet Oral daily hydroCHLOROthiazide 1 (25 mg) Tablet Oral daily Ibuprofen 1 (600 mg) Tablet Oral t.i.d. PRN Levaquin (500 mg) Tablet Oral daily for 7 days LORazepam 1 (1 mg) Tablet Oral t.i.d. PRN Naproxen Sodium 1 (220 mg) Tablet Oral daily PRN One-Daily Multi Vitamins 1 Tablet Oral daily Potassium Chloride ER 1 (20 meq) Tablet, controlled release Oral b.i.d. Family History: Ms. Christopher's mother is alive: lymphoma. Ms. Christopher's father at age 66: liver cancer, and lung cancer. Ms. Christopher has 1 brother who is alive: lung disease. She has 1 sister who is alive. She has 1 uncle who is : lung cancer. Father of lung cancer at age 66. Mother still living at age 88. She has been treated for lymphoma. A brother of lung disease at age 58. A 61-year-old sister is in good health. Social History: Ms. Christopher is . Ms. Christopher no longer smokes but had smoked 1.0 pack/day. She drinks occasionally. She has a history of smoking off and on for 20 years, up to a pack of cigarettes daily. She quit smoking within the past few months. She has had only rare alcohol use. Review Of Symptoms: Constitutional Denies fevers, chills, night sweats, excessive fatigue or weight loss. Allergic/Immunologic No reactions. Eyes Denies significant visual changes. No diplopia. No amaurosis. ENMT Denies changes in hearing, sore throat, mouth sores, difficulty or changes in swallowing ability, and/or sinus drainage. Hematologic/Lymphatic Denies easy bruising or bleeding. The patient denies any tender or palpable lymph nodes. Respiratory Denies dyspnea on exertion, chest pain, cough or hemoptysis. Denies orthopnea. Cardiovascular Denies anginal chest pain, palpitations or orthopnea. Gastrointestinal Denies nausea, vomiting, diarrhea, GI bleeding, or constipation. Denies change in bowel habits and/or stool color, no heartburn or early satiety. Genitourinary (F) No hematuria, hesitancy, incontinence, vaginal bleeding, discharge or other problems with urination. Musculoskeletal Denies joint pain, swelling or redness. No decreased range of motion. Integumentary Denies chronic rashes, inflammation, ulcerations or skin changes. Neurologic Denies headache, blurred vision, and no areas of focal weakness or numbness. Normal gait. No sensory problems. Psychiatric Denies insomnia, depression, humphrey or mood swings. Vital Signs: Performed on Oct 04, 2020 13:09 Height - 62.00 in Weight - 169.0 lbs (HIGH) BSA - 1.78 sq.m BMI - 30.91 (HIGH) Temperature - 97.4 F (LOW) Pulse - 96 /min Respiration - 19 /min BP - 116/83 mm(hg) O2 Sat - 97 % Pain - 0,0 - Fully active, able to carry on all predisease activities without restrictions. (ECOG) Physical Examination: Constitutional Alert, oriented, no acute distress. Skin pink, warm and dry. Head Normocephalic; atraumatic. Eyes Conjunctivae and sclerae are clear and without icterus. Pupils are reactive and equal. ENMT No oral exudates, ulcers, masses, thrush or mucositis. Oropharynx clear. Tongue normal. Hematologic/Lymphatic No petechiae or purpura. No tender or palpable lymph nodes in the cervical or supraclavicular areas. Respiratory Lungs are clear to auscultation without rhonchi or wheezing. Cardiovascular Regular rate and rhythm of heart without murmurs,clicks, gallops or rubs. Chest Right subclavian venous access device is unremarkable. It is healing well. Back/Spine Non-tender to palpation. Extremities No visible deformities, no cyanosis, clubbing or edema. Musculoskeletal No tenderness or swelling, normal range of motion without obvious weakness. Integumentary No rashes or lesions. Neurologic No sensory or motor deficits, normal cerebellar function, normal gait. Psychiatric Alert and oriented times three. Coherent speech. Verbalizes understanding of our discussions today. Laboratory:Test performed on Oct 12, 2020 08:10 WBC 19.3 10 3/uL Manual Segs % 29 % Manual Bands % 37.0 % RBC 4.06 10 6/uL HGB 12.3 g/dL Manual Lymphs % 26 % Atypical Lymphs % 1.0 % HCT 37.0 % MCV 91.1 fL Total Cells Counted 100 Manual Monos % 6.0 % MCH 30.3 pg Manual Eos % 1 % MCHC 33.2 g/dL Manual Basos % 0.0 % RDW 12.7 % Platelet Count 236 10 3/cmm MPV 8.9 fL CBC Slide Review Slide Review Perform Anisocytosis 1+ Platelet Estimate Normal Manual Segs Abs 5.6 10/cmm Manual Bands Abs 7.1 10 3/cmm Manual Neutrophils Abs 12.7 10 3/cmm Manual Lymphocytes Abs 5.2 10 3/cmm Manual Monocytes Abs 1.2 10 3/cmm Manual Eosinophils Abs 0.1 10 3/cmm Manual Basophils Abs 0.0 10 3/cmm Test performed on Oct 04, 2020 11:50 Neutrophils 2.38 10 3/uL Lymphocytes 1.4 10 3/uL Monocytes 0.4 10 3/uL Eosinophils 0.1 10 3/uL Basophils 0.0 10 3/uL Neutrophil % 55.4 % Lymphocyte % 32.3 % Monocyte % 8.8 % Eosinophil % 2.3 % Basophils % 0.7 % NRBC % 0 % Test performed on Sep 26, 2020 09:03 Creatinine 0.7 mg/dL Cr Clearance (Est) 113.97 mL/min Test performed on Aug 24, 2020 12:05 LDH (Total) 195 U/L Sodium 139 mmol/L TSH 1.76 uIU/mL Potassium 3.7 mmol/L Chloride 100 mmol/L CO2 29 mmol/L Anion Gap 13.7 BUN 17 mg/dL eGFR 75.6 mL/min Glucose 89 mg/dL Osmolality - Calculated 289 mOsm/kg Calcium 10.6 mg/dL Protein, Total 7.7 g/dL Albumin 4.6 g/dL Globulin 3.1 g/dL Bilirubin, Total 0.2 mg/dL ALT (SGPT) 42 U/L AST (SGOT) 26 U/L Alkaline Phosphatase 75 IU/L ESR (Sed Rate) 22 mm/hr PT 12.50 SECONDS INR 0.91 Impression: 1. Poorly differentiated non-small cell carcinoma involving the hilar region of the left lung, diagnosed by left-sided open mediastinotomy on 09/03/2020. 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 By clinical evaluation, her disease was stage IIIA (T4, N0, M0) with evidence of mediastinal invasion and with evidence of recurrent laryngeal nerve involvement. 2. Hypertension. 3. Hyperlipidemia. 4. TMJ disorder. 5. Chronic anxiety. Plan: PROBLEMS ADDRESSED TODAY 1. 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 She underwent left-sided open mediastinotomy with biopsies of AP window mass on 09/03/2020. 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 By clinical evaluation, her disease was stage IIIA (T4, N0, M0) with evidence of mediastinal invasion and with evidence of recurrent laryngeal nerve involvement. She was then seen by Dr. Joel Kemp at [facility] for consideration of surgical resection, which is the recommended treatment for T4, N0 disease per NCCN guidelines. Based on her pulmonary function, she was felt to be potentially resectable, but it was recommended that she first have course of neoadjuvant chemotherapy. Additional pathologic evaluation with a next generation sequencing study has been requested. Mrs. Hollis began her first cycle of carboplatin paclitaxel on September 26, 2020. She did not receive growth factor support. A. Proceed with cycle 1 carboplatin paclitaxel. This is day 8. She is on a 21-day cycle. She has tolerated it well thus far. B. Labs from today were reviewed in detail discussed with Mrs. Christopher and a copy was given to her. WBC 4.3, hemoglobin 11.9, platelets 206,000 ANC is 2380. C. I have sent in Bactrim DS twice daily 2 [facility] employee pharmacy as her ANC on day 1 was 6060 and today is 2380. She did not receive growth factor support. She will keep it on hand in the event that she has any fever or any signs or symptoms of infection. 2. Follow-up plan A. She will continue with week great interim counts. B. We will plan to see her back in 2 weeks with CBC CMP. C. Mrs. Christopher was instructed to contact us in the interim should questions or problems arise. D. 55 minutes was spent on this visit and review of patient's records prior to visit; answering questions and providing education in regards to the plan of care and side effect of medication management [id number] with the patient as well as post visit documentation. Signed By: Umair Diego-MAUREEN, AOJOSE RAUL Alvarado MD <<Signature on File>>
== END 2020-10-04 06:11 | disposition home or self-care (01) ==
LOC: ONCMED 06:14
PROVIDERS: PCP Family Medicine; Visit Provider Nurse Practitioner
DX: C34.02 Malignant neoplasm of left main bronchus (principal); I10 Essential (primary) hypertension; E78.5 Hyperlipidemia, unspecified; M26.603 Bilateral temporomandibular joint disorder, unspecified; F41.9 Anxiety disorder, unspecified; Z79.899 Other long term (current) drug therapy
CPT/HCPCS: 36591; 85025; 99215

== ENCOUNTER 2020-10-10 06:32 | Outpatient (CLI) | payer BC, SELFPAY ==
[2020-10-10 11:00] LABS: Basophils % 0.6 %; Eosinophils # 0.1 10^3/uL (0.0-0.8); Eosinophils % 2.2 %; Hematocrit 35.7 % (37.0-47.0); Hemoglobin 11.9 g/dL (11.5-15.3); Lymphocytes # 1.9 10^3/uL (0.8-4.8); Lymphocytes % 58.5 %; Mean Corpuscular HGB Conc 33.3 g/dL (30.0-36.0); Mean Corpuscular Hemoglobin 30.2 pg (28.0-34.0); Mean Corpuscular Volume 90.6 fL (81-99); Monocytes # 0.9 10^3/uL (0.2-0.9); Neutrophils % 10.7 %; Nucleated Red Blood Cells % 0 %; Platelet Count 251 10^3/cmm (130-400); Red Blood Count 3.94 10^6/uL (4.1-5.3); Red Cell Distribution Width 12.1 % (12.1-15.1); White Blood Count 3.2 10^3/uL (4.0-10.0)
[2020-10-10 11:04] LABS: Neutrophils # 0.34 10^3/uL (1.8-7.7)
[2020-10-10 11:29] LABS: Alanine Aminotransferase 31 U/L (0-33); Albumin Level 4.2 g/dL (3.5-5.2); Alkaline Phosphatase 77 IU/L (35-105); Anion Gap 14.1 (5-19); Aspartate Amino Transferase 19 U/L (0-32); Blood Urea Nitrogen 23 mg/dL (6-20); Calcium 9.7 mg/dL (8.5-10.5); Carbon Dioxide 27 mmol/L (22-29); Chloride 103 mmol/L (98-107); Globulin 2.7 g/dL (1.3-4.6); Glomerular Filtration Rate 75.6 mL/min (90-130); Glucose 84 mg/dL (65-115); Osmolality Calculated 293 mOsm/kg (285-295); Potassium 4.1 mmol/L (3.5-5.1); Sodium 140 mmol/L (136-145); Total Bilirubin 0.2 mg/dL (0.15-1.2); Total Protein 6.9 g/dL (6.6-8.7)
== END 2020-10-10 06:33 | disposition home or self-care (01) ==
LOC: ONCMED 06:33
PROVIDERS: PCP Family Medicine; Visit Provider Internal Medicine Medical Oncology
DX: C34.02 Malignant neoplasm of left main bronchus (principal); R93.89 Abnormal findings on diagnostic imaging of other specified body structures; Z51.81 Encounter for therapeutic drug level monitoring; Z79.899 Other long term (current) drug therapy
CPT/HCPCS: 36591; 80053; 85025; 96372; Q5101

== ENCOUNTER 2020-10-17 05:34 | Outpatient (RCR) | payer BC, SELFPAY ==
[2020-10-12 08:34] LABS: Hemoglobin 12.3 g/dL (11.5-15.3); Mean Corpuscular HGB Conc 33.2 g/dL (30.0-36.0); Mean Corpuscular Hemoglobin 30.3 pg (28.0-34.0); Mean Corpuscular Volume 91.1 fL (81-99); Mean Platelet Volume 8.9 fL (7.4-10.4); Platelet Count 236 10^3/cmm (130-400); Red Blood Count 4.06 10^6/uL (4.1-5.3); Red Cell Distribution Width 12.7 % (12.1-15.1); White Blood Count 19.3 10^3/uL (4.0-10.0)
[2020-10-12 09:32] LABS: Slide Review Slide Review Perform
[2020-10-12 09:37] LABS: Absolute Eosinophils 0.1 10^3/cmm (0.0-0.7); Absolute Neutrophil 12.7 10^3/cmm (1.4-6.5); Absolute Segmented Neutrophil 5.6 10/cmm (1.6-7.1); Anisocytosis 1+; Band Neutrophils Absolute 7.1 10^3/cmm (0.0-1.2); Eosinophils 1 %; Lymphocytes 26 %; Lymphocytes Absolute 5.2 10^3/cmm (1.2-3.4); Monocytes Absolute 1.2 10^3/cmm (0.1-0.6); Platelet Estimate Normal (Normal); Segmented Neutrophils 29 %; Total Cells Counted 100 (0-100)
[2020-10-17 09:17] LABS: Basophils % 0.7 %; Hematocrit 38.5 % (37.0-47.0); Hemoglobin 12.7 g/dL (11.5-15.3); Lymphocytes # 1.1 10^3/uL (0.8-4.8); Mean Corpuscular Hemoglobin 29.7 pg (28.0-34.0); Mean Corpuscular Volume 90.2 fL (81-99); Mean Platelet Volume 9.1 fL (7.4-10.4); Monocytes # 0.1 10^3/uL (0.2-0.9); Monocytes % 1.9 %; Neutrophils # 3.69 10^3/uL (1.8-7.7); Neutrophils % 68.4 %; Nucleated Red Blood Cells % 0 %; Platelet Count 230 10^3/cmm (130-400); Red Blood Count 4.27 10^6/uL (4.1-5.3); Red Cell Distribution Width 12.9 % (12.1-15.1); White Blood Count 5.4 10^3/uL (4.0-10.0)
[2020-10-17 09:57] LABS: Slide Review Slide Review Perform
[2020-10-17 10:18] LABS: Alanine Aminotransferase 32 U/L (0-33); Albumin Level 4.5 g/dL (3.5-5.2); Alkaline Phosphatase 88 IU/L (35-105); Anion Gap 18.4 (5-19); Aspartate Amino Transferase 19 U/L (0-32); Blood Urea Nitrogen 24 mg/dL (6-20); Calcium 10.1 mg/dL (8.5-10.5); Carbon Dioxide 23 mmol/L (22-29); Chloride 101 mmol/L (98-107); Globulin 2.9 g/dL (1.3-4.6); Glucose 188 mg/dL (65-115); Osmolality Calculated 295 mOsm/kg (285-295); Potassium 4.4 mmol/L (3.5-5.1); Sodium 138 mmol/L (136-145); Total Bilirubin 0.2 mg/dL (0.15-1.2); Total Protein 7.4 g/dL (6.6-8.7)
[2020-10-17] MEDS: palonosetron 0.25 mg/5 mL SDV IV (10:45)
[2020-10-17] MEDS: sodium chloride 0.9% 250 ML 75 ML IV (10:45)
[2020-10-17] MEDS: famotidine 20 mg/2 mL INJ IVP (10:46)
[2020-10-17] MEDS: diphenhydrAMINE 50 mg/mL SDV 1mL 25 MG IV (10:48)
[2020-10-17] MEDS: fosaprepitant 150 MG in sodium chloride 0.9% 150 ML 300 MG IV (11:08)
--- NOTE | 2020-10-21 07:39 | ONC FU_ITS ---
Dr. Alvarado Patient Follow-Up Note Patient: Sarahi Christopher Unit #: [id number]: [id number] Dicatated By: Anthony Alvarado M.D.Date of Visit:Oct 17, 2020 Onc Med Follow-up/Prog Note Chief Complaint: Lung cancer. 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 She had presented with progressively worsening hoarseness since early June. She was seen by Dr. Major on 08/01/2020. Her flexible laryngoscopy was unrevealing. Further evaluation with neck CT on 08/16/2000 revealed a large neoplastic appearing mass in the medial left upper lung/mediastinum measuring 5.2 x 3.9 cm with superior inferior extension greater than 5 cm. There was extension into the AP window. Also noted was an ill-defined area of decreased attenuation at the tongue base and a small nodule involving the base of the uvula. Small cervical chain lymph nodes were noted bilaterally bilaterally, the largest on the right measuring 8 mm. I had seen her initially on 08/24/2020. Her staging CT scans of the chest, abdomen, and pelvis showed a 5.1 x 3.3 x 5.4 cm heterogeneously enhancing anterior mediastinal mass abutting the AP window. There was associated encasement of the distal left mainstem bronchus with associated narrowing, and there was encasement and narrowing of the distal main pulmonary artery. There was no obvious metastatic disease. As the tumor did not appear to be accessible for CT directed needle biopsy, she was referred to Dr. Long and on 09/03/2020 she underwent left-sided open mediastinotomy with biopsies of AP window mass. 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 By IHC, the tumor cells were p63 positive and TTF-1 positive. The Ki-67 was high at 50%. Her staging PET/CT on 09/08/2020 showed an FDG avid 3.8 cm superior left hilar mass with mediastinal invasion, SUV 16.5, consistent with primary lung malignancy with mediastinal invasion. There was anterior mediastinal and left-sided parasternal activity which was felt to represent postsurgical inflammatory uptake. Small mediastinal lymph nodes were too small to reliably characterize. The left true vocal cord was noted to be flaccid and FDG negative, indicative of recurrent laryngeal nerve involvement. There were no other areas of abnormal uptake. As such, by clinical evaluation her disease was stage IIIA (T4, N0, M0). With those findings, she was referred to Dr. Joel Kemp at [facility] for consideration of surgical resection. Based on her pulmonary function, he felt that she would potentially be a surgical candidate, but he did recommend a course of neoadjuvant chemotherapy prior to attempting resection. She then underwent placement of Port-A-Cath venous access device on 09/24/2020 and she began cycle 1 of neoadjuvant chemotherapy with carboplatin/paclitaxel on 09/26/2020. She is seen for a follow-up visit. She indicates that she had experienced some flushing. In the first 24 hours after her chemotherapy. She experienced no other acute toxicity. She did have a little bit of nausea for couple of days afterwards. Her energy is still pretty good. Her ECOG score is 1. Appetite also is good. She has not had fever or night sweats. She has had some hot flashes. She has a little bit of sinus drainage and she continues to have some nonproductive cough. She is sometimes short of breath. She still has some pain occasionally in the area of her chest incision. She has occasional acid reflux symptoms at night. She has had some mild constipation. Bladder function has been okay. She has had some pain in her neck on the left side and in her left shoulder and arm. It seems to have improved somewhat after he took the steroid premedication. She has no other joint or bone pain. She does not complain of headache. She sometimes has dizziness. She has had a little bit of nerve pain in her left arm. She is having some difficulty sleeping. Medications: Atorvastatin Calcium 1 (20 mg) Tablet Oral daily, Biotin 1 (37063 mcg) Tablet Oral daily, Calcium Citrate 1 (200 mg) Tablet Oral daily, hydroCHLOROthiazide 1 (25 mg) Tablet Oral daily, Ibuprofen 1 (600 mg) Tablet Oral t.i.d. PRN, Levaquin (500 mg) Tablet Oral daily for 7 days, LORazepam 1 (1 mg) Tablet Oral t.i.d. PRN, Naproxen Sodium 1 (220 mg) Tablet Oral daily PRN, One-Daily Multi Vitamins 1 Tablet Oral daily, Potassium Chloride ER 1 (20 meq) Tablet, controlled release Oral b.i.d. Allergies: Bavarian Cream, Egg, Penicillins, Robitussin 12 Hour Cough, and Unpasteurized Dairy. Vital Signs: Performed on Oct 17, 2020 09:41 Height - 62.00 in Weight - 168.8 lbs (LOW) BSA - 1.78 sq.m BMI - 30.87 (HIGH) Temperature - 96.6 F (LOW) Pulse - 120 /min (HIGH) Respiration - 18 /min BP - 132/83 mm(hg) O2 Sat - 97 % Pain - 0 Fatigue - 4 Physical Examination: Constitutional - She looks good generally, Eyes - Sclerae nonicteric. Conjunctivae clear, ENMT - No lesions noted in the oral cavity, Hematologic/Lymphatic - There is slight soft tissue swelling in the supraclavicular area bilaterally. There is no cervical, clavicular, or axillary adenopathy noted, Respiratory - Lungs show slightly coarse breath sounds bilaterally, Cardiovascular - Heart rhythm is regular. There is no murmur, gallop, or rub noted, Abdomen - Soft. Liver and spleen are not enlarged. There is no abdominal mass or ascites noted and there is no inguinal adenopathy, Extremities - No edema, Neurologic - No focal neurologic deficits noted. Lab/Imaging: Test performed on Oct 17, 2020 10:26 Creatinine 0.9 mg/dL Cr Clearance (Est) 88.65 mL/min Test performed on Oct 17, 2020 08:13 Sodium 138 mmol/L Potassium 4.4 mmol/L Chloride 101 mmol/L CO2 23 mmol/L Anion Gap 18.4 BUN 24 mg/dL eGFR 66.0 mL/min Glucose 188 mg/dL Osmolality - Calculated 295 mOsm/kg Calcium 10.1 mg/dL Protein, Total 7.4 g/dL Albumin 4.5 g/dL Globulin 2.9 g/dL Bilirubin, Total 0.2 mg/dL ALT (SGPT) 32 U/L AST (SGOT) 19 U/L Alkaline Phosphatase 88 IU/L WBC 5.4 10 3/uL RBC 4.27 10 6/uL HGB 12.7 g/dL HCT 38.5 % MCV 90.2 fL MCH 29.7 pg MCHC 33.0 g/dL RDW 12.9 % Platelet Count 230 10 3/cmm MPV 9.1 fL Neutrophils 3.69 10 3/uL Lymphocytes 1.1 10 3/uL Monocytes 0.1 10 3/uL Eosinophils 0.0 10 3/uL Basophils 0.0 10 3/uL Neutrophil % 68.4 % Lymphocyte % 21.0 % Monocyte % 1.9 % Eosinophil % 0.0 % Basophils % 0.7 % NRBC % 0 % CBC Slide Review Slide Review Perform SLIDE REVIEW AGREES WITH AUTOMATED RESULTS ST Problem List: 1. Poorly differentiated non-small cell carcinoma involving the hilar region of the left lung, diagnosed by left-sided open mediastinotomy on 09/03/2020. 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 By clinical evaluation, her disease was stage IIIA (T4, N0, M0) with evidence of mediastinal invasion and with evidence of recurrent laryngeal nerve involvement. 2. Hypertension. 3. Hyperlipidemia. 4. TMJ disorder. 5. Chronic anxiety. Problems Addressed with this Encounter and Plan: Patient with poorly differentiated non-small cell carcinoma involving the hilar region of the left lung. She underwent left-sided open mediastinotomy with biopsies of AP window mass on 09/03/2020. 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 By clinical evaluation, her disease was stage IIIA (T4, N0, M0) with evidence of mediastinal invasion and with evidence of recurrent laryngeal nerve involvement. She was then seen by Dr. Joel Kemp at [facility] for consideration of surgical resection. Based on her pulmonary function, she was felt to be potentially resectable, but it was recommended that she first have course of neoadjuvant chemotherapy. She began cycle 1 of carboplatin/paclitaxel chemotherapy on 09/26/2020. She experienced some flushing during the first 24 hours following that treatment. She was severely neutropenic at day 15, but she recovered uneventfully with growth factor support. Overall, she tolerated the treatment well. She will proceed now with cycle 2 of carboplatin/paclitaxel. Dosages will remain the same. Blood counts will be monitored weekly. She will have restaging chest CT prior to her next visit which will be in 3 weeks. Signed By: Anthony Alvarado M.D. <<Signature on File>>
== END 2020-10-17 23:59 | disposition home or self-care (01) ==
LOC: ONCMED 05:34
PROVIDERS: PCP Family Medicine; Visit Provider Internal Medicine Medical Oncology
DX: C34.02 Malignant neoplasm of left main bronchus (principal); C78.1 Secondary malignant neoplasm of mediastinum; C79.89 Secondary malignant neoplasm of other specified sites; D70.1 Agranulocytosis secondary to cancer chemotherapy; T45.1X5D Adverse effect of antineoplastic and immunosuppressive drugs, subsequent encounter; Z51.81 Encounter for therapeutic drug level monitoring; Z79.899 Other long term (current) drug therapy
CPT/HCPCS: 36415; 36591; 80053; 85007; 85025; 96367; 96372; 96375; 96413; 96415; 96417; 99214; J1100; J1200; J1453; J2469; J3490; J7030; J7040; J7050; J9045; J9267; Q5101

== ENCOUNTER 2020-11-05 10:08 | Outpatient (CLI) | payer BC, SELFPAY ==
--- NOTE | 2020-11-05 10:31 | CT_ITS ---
WS: [id number] CT CHEST WITH INTRAVENOUS CONTRAST HISTORY: LUNG CANCER RESTAGING TECHNIQUE: Contiguous 5 mm axial imaging performed on the thorax. Coronal and sagittal reformats are submitted. All CT scans at [facility] use at least one of these dose optimization techniq ues: automated exposure control; mA and/or kV adjustment per patient size (includes targeted exams wh ere dose is matched to clinical indication); or iterative reconstruction. CONTRAST: Omnipaque 300; 95 mL IV. DLP: 915.46 mGycm COMPARISON: 08/24/2020 and PET/CT 09/08/2020 Lungs and central airway: Moderate improvement and decrease in size of the LEFT upper lobe malignancy extending into the AP window. This mass measures 2.9 x 4.6 cm and extends over a length of 4.1 cm. T his is a necrotic mass which extends to abut the mediastinum and aortic arch. Mass extends into the A P window and also extends along the LEFT hilar structures. As compared to the prior study there has b een a moderate decrease in size. No new lymph nodes or progression. No additional pulmonary masses or nodules. Pleura: There is mild pleural thickening which is new in the LEFT chest. This may be secondary to adina lolita and radiation. No effusions. Heart and pericardium: Normal size heart with no pericardial effusion. Mediastinum and susi: No mediastinum or hilar adenopathy. Postsurgical clips along the anterior media stinum from a recent mediastinoscopy. Vessels: Mild atherosclerosis aorta. Normal size pulmonary artery. Chest wall and lower neck: Small subcentimeter LEFT axillary lymph nodes. These lymph nodes are very slightly more prominent in both size and number as compared to 08/24/2020. Upper abdomen: No evidence for liver metastasis or adrenal metastasis. Osseous structures: Mild thoracic spondylosis. CT/CT chest w con* [id number] IMPRESSION: 1. Moderate decrease in size of the known malignancy in the LEFT upper lobe ex tending into the mediastinum. Mass now measures 2.9 x 4.6 cm and extends over l ength of 4.1 cm. 2. Slight increase in the size and number of the LEFT axillary lymph nodes but these lymph nodes measure much less than 1 cm. 3. Prior mediastinoscopy. 4. Mild pleural thickening in the LEFT thorax is new since 08/24/2020. May be a response from the treatment or the mediastinoscopy.
[2020-11-05] MEDS: iohexol 300 mg/mL 100 mL Btl IV (10:48)
== END 2020-11-05 10:09 | disposition home or self-care (01) ==
LOC: RADWPI 10:23
PROVIDERS: PCP Family Medicine; Visit Provider Internal Medicine Medical Oncology
DX: C34.02 Malignant neoplasm of left main bronchus (principal)
CPT/HCPCS: 71260; Q9967

== ENCOUNTER 2020-11-16 08:00 | Outpatient (RCR) | payer BC, SELFPAY ==
[2020-10-24 09:03] LABS: Basophils % 0.7 %; Eosinophils # 0.1 10^3/uL (0.0-0.8); Eosinophils % 2.7 %; Hematocrit 33.7 % (37.0-47.0); Hemoglobin 11.4 g/dL (11.5-15.3); Lymphocytes # 1.5 10^3/uL (0.8-4.8); Lymphocytes % 33.6 %; Mean Corpuscular HGB Conc 33.8 g/dL (30.0-36.0); Mean Corpuscular Hemoglobin 30.6 pg (28.0-34.0); Mean Corpuscular Volume 90.6 fL (81-99); Mean Platelet Volume 9.3 fL (7.4-10.4); Monocytes # 0.2 10^3/uL (0.2-0.9); Neutrophils # 2.65 10^3/uL (1.8-7.7); Neutrophils % 58.6 %; Nucleated Red Blood Cells % 0 %; Platelet Count 216 10^3/cmm (130-400); Red Blood Count 3.72 10^6/uL (4.1-5.3); White Blood Count 4.5 10^3/uL (4.0-10.0)
[2020-10-31 09:35] LABS: Basophils % 0.6 %; Eosinophils % 1.2 %; Hematocrit 35.4 % (37.0-47.0); Hemoglobin 11.8 g/dL (11.5-15.3); Lymphocytes # 2.2 10^3/uL (0.8-4.8); Lymphocytes % 63.5 %; Mean Corpuscular HGB Conc 33.3 g/dL (30.0-36.0); Mean Corpuscular Hemoglobin 30.3 pg (28.0-34.0); Mean Corpuscular Volume 90.8 fL (81-99); Mean Platelet Volume 8.8 fL (7.4-10.4); Monocytes # 0.8 10^3/uL (0.2-0.9); Monocytes % 22.1 %; Neutrophils % 12.3 %; Nucleated Red Blood Cells % 0 %; Platelet Count 277 10^3/cmm (130-400); Red Cell Distribution Width 13.6 % (12.1-15.1); White Blood Count 3.4 10^3/uL (4.0-10.0)
[2020-10-31 10:15] LABS: Slide Review Slide Review Perform
[2020-10-31 10:17] LABS: Neutrophils # 0.42 10^3/uL (1.8-7.7)
[2020-11-02 09:54] LABS: Hematocrit 36.8 % (37.0-47.0); Hemoglobin 12.6 g/dL (11.5-15.3); Mean Corpuscular HGB Conc 34.2 g/dL (30.0-36.0); Mean Corpuscular Volume 90.6 fL (81-99); Mean Platelet Volume 8.7 fL (7.4-10.4); Platelet Count 281 10^3/cmm (130-400); Red Blood Count 4.06 10^6/uL (4.1-5.3); White Blood Count 21.5 10^3/uL (4.0-10.0)
[2020-11-02 10:31] LABS: Slide Review Slide Review Perform
[2020-11-02 10:34] LABS: Absolute Neutrophil 17.2 10^3/cmm (1.4-6.5); Anisocytosis 1+; Band Neutrophils Absolute 8.2 10^3/cmm (0.0-1.2); Eosinophils 0 %; Lymphocytes 14 %; Monocytes Absolute 1.3 10^3/cmm (0.1-0.6); Platelet Estimate Normal (Normal); Polychromasia Trace; Segmented Neutrophils 42 %; Total Cells Counted 100 (0-100)
[2020-11-07 09:36] LABS: Basophils % 0.6 %; Hematocrit 37.2 % (37.0-47.0); Hemoglobin 12.6 g/dL (11.5-15.3); Lymphocytes % 14.5 %; Mean Corpuscular HGB Conc 33.9 g/dL (30.0-36.0); Mean Corpuscular Hemoglobin 30.4 pg (28.0-34.0); Mean Corpuscular Volume 89.6 fL (81-99); Mean Platelet Volume 8.8 fL (7.4-10.4); Monocytes # 0.1 10^3/uL (0.2-0.9); Monocytes % 1.2 %; Neutrophils # 5.52 10^3/uL (1.8-7.7); Neutrophils % 81.3 %; Nucleated Red Blood Cells % 0 %; Platelet Count 267 10^3/cmm (130-400); Red Blood Count 4.15 10^6/uL (4.1-5.3); Red Cell Distribution Width 13.9 % (12.1-15.1); White Blood Count 6.8 10^3/uL (4.0-10.0)
[2020-11-07 10:00] LABS: Alanine Aminotransferase 38 U/L (0-33); Albumin Level 4.3 g/dL (3.5-5.2); Alkaline Phosphatase 89 IU/L (35-105); Anion Gap 16.2 (5-19); Aspartate Amino Transferase 25 U/L (0-32); Blood Urea Nitrogen 22 mg/dL (6-20); Calcium 9.5 mg/dL (8.5-10.5); Carbon Dioxide 24 mmol/L (22-29); Chloride 100 mmol/L (98-107); Globulin 2.9 g/dL (1.3-4.6); Glucose 193 mg/dL (65-115); Osmolality Calculated 291 mOsm/kg (285-295); Potassium 4.2 mmol/L (3.5-5.1); Sodium 136 mmol/L (136-145); Total Bilirubin 0.2 mg/dL (0.15-1.2); Total Protein 7.2 g/dL (6.6-8.7)
[2020-11-07] MEDS: sodium chloride 0.9% 250 ML 75 ML IV (12:08)
[2020-11-07] MEDS: palonosetron 0.25 mg/5 mL SDV IV (12:08)
[2020-11-07] MEDS: famotidine 20 mg/2 mL INJ IVP (12:10)
[2020-11-07] MEDS: diphenhydrAMINE 50 mg/mL SDV 1mL 25 MG IV (12:12)
[2020-11-07] MEDS: fosaprepitant 150 MG in sodium chloride 0.9% 150 ML 300 MG IV (12:15)
--- NOTE | 2020-11-16 07:39 | MR_ITS ---
WS: [id number] MRI CERVICAL SPINE NONCONTRAST HISTORY: NECK / LEFT SHOULDER PAIN/NUMBNESS AND TINGLING COMPARISON: None available. Technique: Multiplanar, multisequence noncontrast imaging of the cervical spine. Straightening of the normal cervical kyphosis. Signal within the cervical cord is normal. Visualized posterior fossa is unremarkable. Craniocervical junction, C1 and C2 relationship, odontoid process and soft tissues are normal. C2-C3: Normal. C3-C4: Diffuse annular disc bulging and osteophytic ridging. Disc osteophyte complexes extend into th e foramen and centrally. Mild central and bilateral foraminal stenosis. C4-C5: Mild annular disc bulging and osteophytic ridging resulting in mild bilateral foraminal stenos is. C5-C6: Mild osteophytic ridging and annular disc bulging. Moderate LEFT and mild RIGHT foraminal sten osis. C6-C7: Moderate annular disc bulging with osteophytic ridging. Disc osteophyte complexes extend into the foramen and centrally resulting in moderate central and bilateral foraminal stenosis. C7-T1: Normal. Paraspinal soft tissue are normal. MR/MR cervical spin wo con* [id number] IMPRESSION: 1. Multilevel disc osteophyte disease with no severe stenosis. 2. Most significant stenosis is moderate at C6-7. Moderate central and bilater al foraminal stenosis due to disc osteophyte complexes. 3. Moderate LEFT and mild foraminal stenosis at C5-6 due to disc osteophyte di sease. 4. Mild central and bilateral frontal stenosis at C3-4 with mild bilateral for aminal stenosis at C4-5.
[2020-11-16] MEDS: gadobenate dimeglumine 20 mL vial IV (08:13)
--- NOTE | 2020-11-24 17:30 | ONC FU_ITS ---
[facility] Patient Note Patient: Sarahi Christopher Unit #: [id number]: [id number] Dictated By: Umair DiegoDate of Visit: Nov 07, 2020 Onc MED Follow-Up/Prog Note Chief Complaint: Lung cancer. 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 She had presented with progressively worsening hoarseness since early June. She was seen by Dr. Major on 08/01/2020. Her flexible laryngoscopy was unrevealing. Further evaluation with neck CT on 08/16/2000 revealed a large neoplastic appearing mass in the medial left upper lung/mediastinum measuring 5.2 x 3.9 cm with superior inferior extension greater than 5 cm. There was extension into the AP window. Also noted was an ill-defined area of decreased attenuation at the tongue base and a small nodule involving the base of the uvula. Small cervical chain lymph nodes were noted bilaterally bilaterally, the largest on the right measuring [address] Alvarado had seen her initially on 08/24/2020. Her staging CT scans of the chest, abdomen, and pelvis showed a 5.1 x 3.3 x 5.4 cm heterogeneously enhancing anterior mediastinal mass abutting the AP window. There was associated encasement of the distal left mainstem bronchus with associated narrowing, and there was encasement and narrowing of the distal main pulmonary artery. There was no obvious metastatic disease. As the tumor did not appear to be accessible for CT directed needle biopsy, she was referred to Dr. Long and on 09/03/2020 she underwent left-sided open mediastinotomy with biopsies of AP window mass. 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 By IHC, the tumor cells were p63 positive and TTF-1 positive. The Ki-67 was high at 50%. Her staging PET/CT on 09/08/2020 showed an FDG avid 3.8 cm superior left hilar mass with mediastinal invasion, SUV 16.5, consistent with primary lung malignancy with mediastinal invasion. There was anterior mediastinal and left-sided parasternal activity which was felt to represent postsurgical inflammatory uptake. Small mediastinal lymph nodes were too small to reliably characterize. The left true vocal cord was noted to be flaccid and FDG negative, indicative of recurrent laryngeal nerve involvement. There were no other areas of abnormal uptake. As such, by clinical evaluation her disease was stage IIIA (T4, N0, M0). With those findings, she was referred to Dr. Joel Kemp at [facility] for consideration of surgical resection. Based on her pulmonary function, he felt that she would potentially be a surgical candidate, but he did recommend a course of neoadjuvant chemotherapy prior to attempting resection. Mrs. Christopher did have MRI of the head with and without contrast on September 20, 2020. It was a normal MRI the brain with contrast there was no metastatic disease to the brain. She had right subclavian Port-A-Cath placement per Dr. Long on September 24, 2020. Her [facility] Results reports PD-L1 (22c3) positive, TPS: 1%; PD-L1 (28???8) positive[2+, 1%; tumor mutation burden high 44 mut/Mb; ALK was negative; BRAF mutation not detected; EGFR was not detected., RET, ROS1, MET were all not detected. She began cycle 1 of neoadjuvant chemotherapy with carboplatin/paclitaxel on 09/26/2020. Follow-up imaging with CT of the chest with contrast on November 05, 2020 reports a moderate decrease in the size of the known malignancy at the left upper lobe extending into the mediastinum. The mass now measures 2.9 x 4.6 cm and extends over the length of 4.1 cm. Previously it was 5.1 x 3.3 x 5.4 cm on 08/24/2020. Slight increase in size and number of the left axillary lymph nodes but these lymph nodes measure much less than 1 cm. Noted is a prior mediastinoscopy. There was mild pleural thickening in the left thorax which was new since 08/24/2020 this may be response from the treatment or mediastinoscopy . She has tolerated treatment well thus far she is here today for follow-up and is due for cycle 3 carboplatin paclitaxel. She has had to have growth factor support for chemotherapy-induced neutropenia.She states she is having left shoulder pain that seems to be worsening. She had some numbness in her fingers and thumb. She states is worse when she is bending or lying down. Her premed steroids have been decreased for 3 tablets 6 and 12 hours prior to her treatment due to intolerance. They made her feel bad overall and she had significant flushing with them. Dr. Alvarado had decreased images tolerated this well so far. She states the left shoulder pain and neck pain are sharp pain that do tend to worsen with use. She states there is no particular pattern and nothing seems to relieve the pain particularly. She has noticed the pain for the last several weeks but seems to be worsening in frequency and intensity. She denies any fever or chills or hot flashes. She states she has not had any mouth sores, sore throat or difficulty swallowing. She continues to have some hoarseness but it is no worse than what has been her normal. She denies any nausea or vomiting. She states her bowel and bladder are normal for her. She has some numbness and tingling in her fingers and thumbs but states she is hard to tell if this is from her shoulder or from the chemotherapy. It seems to bother the left hand more than the right but does slightly affect the right 2. She states generally about time she is due for chemo again the right hand is much better. It has not interfered with her ADLs at this point. Her ECOG is 1. Past Medical History: Anxiety Hypercholesterolemia Hypertension TMJ disorder Past Surgical History: Cervical Laser Surgery - Pre-Cancer Cells removed Excision of 3 benign subcutaneous nodules Tonsillectomy Covid vaccine #2 in 2020 Covid vaccine #1 in 2020 Coronary angiography in 2018 Laparoscopic-assisted vaginal hysterectomy in 2004 Allergies: Bavarian Cream, Egg, Penicillins, Robitussin 12 Hour Cough, and Unpasteurized Dairy . Medications: Atorvastatin Calcium 1 (20 mg) Tablet Oral daily Biotin 1 (24271 mcg) Tablet Oral daily Calcium Citrate 1 (200 mg) Tablet Oral daily hydroCHLOROthiazide 1 (25 mg) Tablet Oral daily Ibuprofen 1 (600 mg) Tablet Oral t.i.d. PRN Levaquin (500 mg) Tablet Oral daily for 7 days LORazepam 1 (1 mg) Tablet Oral t.i.d. PRN Naproxen Sodium 1 (220 mg) Tablet Oral daily PRN One-Daily Multi Vitamins 1 Tablet Oral daily Potassium Chloride ER 1 (20 meq) Tablet, controlled release Oral b.i.d. Family History: Ms. Christopher's mother is alive: lymphoma. Ms. Christopher's father at age 66: liver cancer, and lung cancer. Ms. Christopher has 1 brother who is alive: lung disease. She has 1 sister who is alive. She has 1 uncle who is : lung cancer. Father of lung cancer at age 66. Mother still living at age 88. She has been treated for lymphoma. A brother of lung disease at age 58. A 61-year-old sister is in good health. Social History: Ms. Christopher is . Ms. Christopher no longer smokes but had smoked 1.0 pack/day. She drinks occasionally. She has a history of smoking off and on for 20 years, up to a pack of cigarettes daily. She quit smoking within the past few months. She has had only rare alcohol use. Review Of Symptoms: Vital Signs: Performed on Nov 07, 2020 11:10 Height - 62.00 in Weight - 169 lbs (HIGH) BSA - 1.78 sq.m BMI - 30.91 (HIGH) Temperature - 96.6 F (LOW) Pulse - 123 /min (HIGH) Respiration - 18 /min BP - 121/82 mm(hg) O2 Sat - 97 % Pain - 3 Fatigue - 0,1 - No physically strenuous activity, but ambulatory and able to carry out light or sedentary work (e.g. office work, light house work). (ECOG) Physical Examination: Constitutional Alert, oriented, no acute distress. Skin pink, warm and dry. Head Normocephalic; atraumatic. Eyes Conjunctivae and sclerae are clear and without icterus. Pupils are reactive and equal. Respiratory Lungs are clear to auscultation without rhonchi or wheezing. Cardiovascular Regular rate and rhythm of heart without murmurs,clicks, gallops or rubs. Chest Right subclavian venous access device is unremarkable. Back/Spine Non-tender to palpation. Extremities No visible deformities, no cyanosis, clubbing or edema. Musculoskeletal No tenderness or swelling, normal range of motion without obvious weakness. Integumentary No rashes or lesions. Neurologic No sensory or motor deficits, normal cerebellar function, normal gait. Psychiatric Alert and oriented times three. Coherent speech. Verbalizes understanding of our discussions today. Laboratory:Test performed on Nov 07, 2020 09:08 Sodium 136 mmol/L Potassium 4.2 mmol/L Chloride 100 mmol/L CO2 24 mmol/L Anion Gap 16.2 BUN 22 mg/dL Creatinine 0.9 mg/dL Cr Clearance (Est) 88.6500 mL/min eGFR 66.0 mL/min Glucose 193 mg/dL Osmolality - Calculated 291 mOsm/kg Calcium 9.5 mg/dL Protein, Total 7.2 g/dL Albumin 4.3 g/dL Globulin 2.9 g/dL Bilirubin, Total 0.2 mg/dL ALT (SGPT) 38 U/L AST (SGOT) 25 U/L Alkaline Phosphatase 89 IU/L WBC 6.8 10 3/uL RBC 4.15 10 6/uL HGB 12.6 g/dL HCT 37.2 % MCV 89.6 fL MCH 30.4 pg MCHC 33.9 g/dL RDW 13.9 % Platelet Count 267 10 3/cmm MPV 8.8 fL Neutrophils 5.52 10 3/uL Lymphocytes 1.0 10 3/uL Monocytes 0.1 10 3/uL Eosinophils 0.0 10 3/uL Basophils 0.0 10 3/uL Neutrophil % 81.3 % Lymphocyte % 14.5 % Monocyte % 1.2 % Eosinophil % 0.0 % Basophils % 0.6 % NRBC % 0 % Test performed on Oct 17, 2020 08:13 CBC Slide Review Slide Review Perform SLIDE REVIEW AGREES WITH AUTOMATED RESULTS ST Test performed on Oct 12, 2020 08:10 Manual Segs % 29 % Manual Bands % 37.0 % Manual Lymphs % 26 % Atypical Lymphs % 1.0 % Total Cells Counted 100 Manual Monos % 6.0 % Manual Eos % 1 % Manual Basos % 0.0 % Anisocytosis 1+ Platelet Estimate Normal Manual Segs Abs 5.6 10/cmm Manual Bands Abs 7.1 10 3/cmm Manual Neutrophils Abs 12.7 10 3/cmm Manual Lymphocytes Abs 5.2 10 3/cmm Manual Monocytes Abs 1.2 10 3/cmm Manual Eosinophils Abs 0.1 10 3/cmm Manual Basophils Abs 0.0 10 3/cmm Test performed on Aug 24, 2020 12:05 LDH (Total) 195 U/L TSH 1.76 uIU/mL ESR (Sed Rate) 22 mm/hr PT 12.50 SECONDS INR 0.91 Impression: 1. Poorly differentiated non-small cell carcinoma involving the hilar region of the left lung, diagnosed by left-sided open mediastinotomy on 09/03/2020. 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 By clinical evaluation, her disease was stage IIIA (T4, N0, M0) with evidence of mediastinal invasion and with evidence of recurrent laryngeal nerve involvement. 2. Hypertension. 3. Hyperlipidemia. 4. TMJ disorder. 5. Chronic anxiety. Plan: PROBLEMS ADDRESSED TODAY 1. poorly differentiated non-small cell carcinoma involving the hilar region of the left lung. She underwent left-sided open mediastinotomy with biopsies of AP window mass on 09/03/2020. 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 By clinical evaluation, her disease was stage IIIA (T4, N0, M0) with evidence of mediastinal invasion and with evidence of recurrent laryngeal nerve involvement. She was then seen by Dr. Joel Kemp at [facility] for consideration of surgical resection. Based on her pulmonary function, she was felt to be potentially resectable, but it was recommended that she first have course of neoadjuvant chemotherapy. She began cycle 1 of carboplatin/paclitaxel chemotherapy on 09/26/2020. She experienced some flushing during the first 24 hours following that treatment. She was severely neutropenic at day 15, but she recovered uneventfully with growth factor support. Overall, she tolerated the treatment well. Follow-up imaging with CT of the chest with contrast on November 05, 2020 reports a moderate decrease in the size of the known malignancy at the left upper lobe extending into the mediastinum. The mass now measures 2.9 x 4.6 cm and extends over the length of 4.1 cm. Previously it was 5.1 x 3.3 x 5.4 cm on 08/24/2020. Slight increase in size and number of the left axillary lymph nodes but these lymph nodes measure much less than 1 cm. Noted is a prior mediastinoscopy. There was mild pleural thickening in the left thorax which was new since 08/24/2020 this may be response from the treatment or mediastinoscopy . A. Proceed with cycle 3 carboplatin paclitaxel. B. Steroid premed compliance confirmed at reduced dose of 3 tablets 6 and 12 hours each time prior to the chemotherapy. C. Continue aggressive antiemetics for high risk regimen as they are working well. D. Today's labs were reviewed in detail and discussed with Ms. Christopher and a copy was given to her. WBC 6.8, hemoglobin 12.6, platelets 267,000 ANC is 5500. Potassium 4.2 random glucose 193 but this is steroid-induced) creatinine 0.9 LFTs are normal. 2. Left shoulder and neck pain with left finger numbness A. I have requested and MRI with contrast for further evaluation. 3. Chemotherapy-induced neutropenia A. She has a history after cycle 1 of an ANC of 340 on day 14. She did respond to growth factor support well. That has been maintained through cycle 2 as her ANC on day 14 of cycle 2 was 420. We will plan to continue with her growth factor support. 4. Follow-up plan A. We will check her CBC on November 19, 2020. B. She will return in 3 weeks for consideration of cycle 4 carboplatin Taxol with CBC CMP. C. Mrs. Christopher was instructed to contact us in interim should questions or problems arise. Total time spent on this patient's visit today???including review of chart prior to visit, answering multiple questions regarding treatment CT results lab results amongst others as well as post visit documentation was 60 minutes. Signed By: Umair Diego-< AOCNP Anthony Alvarado MD <<Signature on File>>
== END 2020-11-16 23:59 | disposition home or self-care (01) ==
LOC: ONCMED 08:00
PROVIDERS: Internal Medicine Medical Oncology; PCP Family Medicine; Visit Provider Nurse Practitioner
DX: Z51.11 Encounter for antineoplastic chemotherapy (principal); C34.02 Malignant neoplasm of left main bronchus; F41.9 Anxiety disorder, unspecified; E78.00 Pure hypercholesterolemia, unspecified; I10 Essential (primary) hypertension; M26.603 Bilateral temporomandibular joint disorder, unspecified; Z79.899 Other long term (current) drug therapy
CPT/HCPCS: 36591; 72141; 80053; 85007; 85025; 96367; 96372; 96375; 96413; 96415; 96417; 99215; A9577; J1100; J1200; J1453; J2469; J3490; J7030; J7040; J7050; J9045; J9267; Q5101

== ENCOUNTER 2020-12-14 05:35 | Outpatient (RCR) | payer BC, SELFPAY ==
[2020-11-19 09:29] LABS: Basophils % 0.7 %; Eosinophils % 1.1 %; Hematocrit 31.9 % (37.0-47.0); Hemoglobin 10.9 g/dL (11.5-15.3); Lymphocytes # 1.5 10^3/uL (0.8-4.8); Lymphocytes % 54.6 %; Mean Corpuscular HGB Conc 34.2 g/dL (30.0-36.0); Mean Corpuscular Hemoglobin 31.2 pg (28.0-34.0); Mean Corpuscular Volume 91.4 fL (81-99); Monocytes # 0.7 10^3/uL (0.2-0.9); Monocytes % 26.2 %; Neutrophils % 17.4 %; Nucleated Red Blood Cells % 0 %; Platelet Count 333 10^3/cmm (130-400); Red Blood Count 3.49 10^6/uL (4.1-5.3); Red Cell Distribution Width 15.1 % (12.1-15.1); White Blood Count 2.8 10^3/uL (4.0-10.0)
[2020-11-19 09:38] LABS: Neutrophils # 0.49 10^3/uL (1.8-7.7)
[2020-11-22 11:40] LABS: Basophils % 0.2 %; Eosinophils # 0.1 10^3/uL (0.0-0.8); Eosinophils % 0.6 %; Hematocrit 34.5 % (37.0-47.0); Hemoglobin 11.8 g/dL (11.5-15.3); Lymphocytes # 2.7 10^3/uL (0.8-4.8); Lymphocytes % 19.8 %; Mean Corpuscular HGB Conc 34.2 g/dL (30.0-36.0); Mean Corpuscular Hemoglobin 31.5 pg (28.0-34.0); Mean Platelet Volume 8.9 fL (7.4-10.4); Monocytes # 3.2 10^3/uL (0.2-0.9); Monocytes % 23.3 %; Neutrophils # 7.25 10^3/uL (1.8-7.7); Neutrophils % 52.9 %; Nucleated Red Blood Cells # 0.1 /100WBC; Nucleated Red Blood Cells % 0.7 %; Platelet Count 300 10^3/cmm (130-400); Red Blood Count 3.75 10^6/uL (4.1-5.3); White Blood Count 13.7 10^3/uL (4.0-10.0)
[2020-11-22 12:02] LABS: Slide Review Slide Review Perform
[2020-11-28 09:17] LABS: Basophils % 0.7 %; Hematocrit 34.4 % (37.0-47.0); Lymphocytes # 0.7 10^3/uL (0.8-4.8); Lymphocytes % 12.6 %; Mean Corpuscular HGB Conc 34.9 g/dL (30.0-36.0); Mean Corpuscular Hemoglobin 31.7 pg (28.0-34.0); Mean Platelet Volume 9.3 fL (7.4-10.4); Monocytes # 0.1 10^3/uL (0.2-0.9); Monocytes % 0.9 %; Neutrophils # 4.82 10^3/uL (1.8-7.7); Neutrophils % 83.2 %; Nucleated Red Blood Cells % 0 %; Platelet Count 160 10^3/cmm (130-400); Red Blood Count 3.78 10^6/uL (4.1-5.3); Red Cell Distribution Width 15.6 % (12.1-15.1); White Blood Count 5.8 10^3/uL (4.0-10.0)
[2020-11-28 09:41] LABS: Alanine Aminotransferase 40 U/L (0-33); Albumin Level 4.4 g/dL (3.5-5.2); Alkaline Phosphatase 92 IU/L (35-105); Anion Gap 15.3 (5-19); Aspartate Amino Transferase 24 U/L (0-32); Blood Urea Nitrogen 19 mg/dL (6-20); Calcium 9.4 mg/dL (8.5-10.5); Carbon Dioxide 25 mmol/L (22-29); Chloride 99 mmol/L (98-107); Globulin 2.7 g/dL (1.3-4.6); Glomerular Filtration Rate 75.6 mL/min (90-130); Glucose 193 mg/dL (65-115); Osmolality Calculated 288 mOsm/kg (285-295); Potassium 4.3 mmol/L (3.5-5.1); Sodium 135 mmol/L (136-145); Total Bilirubin 0.2 mg/dL (0.15-1.2); Total Protein 7.1 g/dL (6.6-8.7)
[2020-11-28] MEDS: palonosetron 0.25 mg/5 mL SDV IV (11:35)
[2020-11-28] MEDS: sodium chloride 0.9% 250 ML 75 ML IV (11:35)
[2020-11-28] MEDS: famotidine 20 mg/2 mL INJ IVP (11:37)
[2020-11-28] MEDS: diphenhydrAMINE 50 mg/mL SDV 1mL 25 MG IV (11:40)
[2020-11-28] MEDS: fosaprepitant 150 MG in sodium chloride 0.9% 150 ML 300 MG IV (12:02)
[2020-12-04 15:06] LABS: Basophils % 0.3 %; Hematocrit 30.2 % (37.0-47.0); Hemoglobin 10.4 g/dL (11.5-15.3); Lymphocytes # 1.3 10^3/uL (0.8-4.8); Lymphocytes % 43.7 %; Mean Corpuscular HGB Conc 34.4 g/dL (30.0-36.0); Mean Corpuscular Hemoglobin 31.5 pg (28.0-34.0); Mean Corpuscular Volume 91.5 fL (81-99); Mean Platelet Volume 10.3 fL (7.4-10.4); Monocytes # 0.1 10^3/uL (0.2-0.9); Monocytes % 3.1 %; Neutrophils # 1.47 10^3/uL (1.8-7.7); Neutrophils % 51.6 %; Nucleated Red Blood Cells % 0 %; Platelet Count 105 10^3/cmm (130-400); Red Cell Distribution Width 15.4 % (12.1-15.1); White Blood Count 2.9 10^3/uL (4.0-10.0)
[2020-12-04 15:37] LABS: Slide Review Slide Review Perform
[2020-12-04 15:52] LABS: Alanine Aminotransferase 28 U/L (0-33); Alkaline Phosphatase 75 IU/L (35-105); Anion Gap 14.6 (5-19); Aspartate Amino Transferase 17 U/L (0-32); Blood Urea Nitrogen 22 mg/dL (6-20); Calcium 8.8 mg/dL (8.5-10.5); Carbon Dioxide 27 mmol/L (22-29); Chloride 99 mmol/L (98-107); Globulin 2.7 g/dL (1.3-4.6); Glomerular Filtration Rate 88.2 mL/min (90-130); Glucose 111 mg/dL (65-115); Osmolality Calculated 288 mOsm/kg (285-295); Potassium 3.6 mmol/L (3.5-5.1); Sodium 137 mmol/L (136-145); Total Bilirubin 0.2 mg/dL (0.15-1.2); Total Protein 6.7 g/dL (6.6-8.7)
--- NOTE | 2020-12-11 11:13 | ONC FU_ITS ---
[facility] Patient Note Patient: Sarahi Christopher Unit #: [id number]: 1970 Dictated By: Umair DiegoDate of Visit: November 28, 2020 Onc MED Follow-Up/Prog Note Chief Complaint: Lung cancer. 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 She had presented with progressively worsening hoarseness since early June. She was seen by Dr. Major on 08/01/2020. Her flexible laryngoscopy was unrevealing. Further evaluation with neck CT on 08/16/2000 revealed a large neoplastic appearing mass in the medial left upper lung/mediastinum measuring 5.2 x 3.9 cm with superior inferior extension greater than 5 cm. There was extension into the AP window. Also noted was an ill-defined area of decreased attenuation at the tongue base and a small nodule involving the base of the uvula. Small cervical chain lymph nodes were noted bilaterally bilaterally, the largest on the right measuring [address] Alvarado had seen her initially on 08/24/2020. Her staging CT scans of the chest, abdomen, and pelvis showed a 5.1 x 3.3 x 5.4 cm heterogeneously enhancing anterior mediastinal mass abutting the AP window. There was associated encasement of the distal left mainstem bronchus with associated narrowing, and there was encasement and narrowing of the distal main pulmonary artery. There was no obvious metastatic disease. As the tumor did not appear to be accessible for CT directed needle biopsy, she was referred to Dr. Long and on 09/03/2020 she underwent left-sided open mediastinotomy with biopsies of AP window mass. 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 By IHC, the tumor cells were p63 positive and TTF-1 positive. The Ki-67 was high at 50%. Her staging PET/CT on 09/08/2020 showed an FDG avid 3.8 cm superior left hilar mass with mediastinal invasion, SUV 16.5, consistent with primary lung malignancy with mediastinal invasion. There was anterior mediastinal and left-sided parasternal activity which was felt to represent postsurgical inflammatory uptake. Small mediastinal lymph nodes were too small to reliably characterize. The left true vocal cord was noted to be flaccid and FDG negative, indicative of recurrent laryngeal nerve involvement. There were no other areas of abnormal uptake. As such, by clinical evaluation her disease was stage IIIA (T4, N0, M0). With those findings, she was referred to Dr. Joel Kemp at [facility] for consideration of surgical resection. Based on her pulmonary function, he felt that she would potentially be a surgical candidate, but he did recommend a course of neoadjuvant chemotherapy prior to attempting resection. Mrs. Christopher did have MRI of the head with and without contrast on September 20, 2020. It was a normal MRI the brain with contrast there was no metastatic disease to the brain. She had right subclavian Port-A-Cath placement per Dr. Long on September 24, 2020. Her [facility] Results reports PD-L1 (22c3) positive, TPS: 1%; PD-L1 (28???8) positive[2+, 1%; tumor mutation burden high 44 mut/Mb; ALK was negative; BRAF mutation not detected; EGFR was not detected., RET, ROS1, MET were all not detected. She began cycle 1 of neoadjuvant chemotherapy with carboplatin/paclitaxel on 09/26/2020. Follow-up imaging with CT of the chest with contrast on November 05, 2020 reports a moderate decrease in the size of the known malignancy at the left upper lobe extending into the mediastinum. The mass now measures 2.9 x 4.6 cm and extends over the length of 4.1 cm. Previously it was 5.1 x 3.3 x 5.4 cm on 08/24/2020. Slight increase in size and number of the left axillary lymph nodes but these lymph nodes measure much less than 1 cm. Noted is a prior mediastinoscopy. There was mild pleural thickening in the left thorax which was new since 08/24/2020 this may be response from the treatment or mediastinoscopy . She has tolerated treatment well thus far she is here today for follow-up and is due for cycle 4 carboplatin paclitaxel. She has had to have growth factor support for chemotherapy-induced neutropenia. She has been having left shoulder pain that seems to be worsening. She had some numbness in her fingers and thumb. She states is worse when she is bending or lying down. Her premed steroids have been decreased for 3 tablets 6 and 12 hours prior to her treatment due to intolerance. They made her feel bad overall and she had significant flushing with them. Dr. Alvarado had decreased the premed doses and she has tolerated this well so far. She states the left shoulder pain and neck pain are sharp pain that do tend to worsen with use. She states there is no particular pattern and nothing seems to relieve the pain particularly. She has noticed the pain for the last several weeks but seems to be worsening in frequency and intensity. She denies any fever or chills or hot flashes. She states she has not had any mouth sores, sore throat or difficulty swallowing. She continues to have some hoarseness but it is no worse than what has been her normal. She denies any nausea or vomiting. She states her bowel and bladder are normal for her. She has some numbness and tingling in her fingers and thumbs but states she is hard to tell if this is from her shoulder or from the chemotherapy. It seems to bother the left hand more than the right but does slightly affect the right also. She states generally about time she is due for chemo again the right hand is much better. It has not interfered with her ADLs at this point. Her ECOG is 1. MRI of the cervical spine on 11/16/2020. It was with noncontrast as she could not tolerate the IV access. The noncontrast CT reported multilevel disc osteophyte disease with no severe stenosis. Most significant stenosis is moderate at C6-7 moderate central and bilateral foraminal stenosis due to disc osteophyte complexes. Moderate left and mild foraminal stenosis at C5-6 due to disc osteophyte disease. Mild central and bilateral frontal stenosis at C3-4 with mild bilateral foraminal stenosis at C4-5. She has not had any actual imaging of the shoulder to date. Past Medical History: Anxiety Hypercholesterolemia Hypertension TMJ disorder Past Surgical History: Cervical Laser Surgery - Pre-Cancer Cells removed Excision of 3 benign subcutaneous nodules Tonsillectomy Covid vaccine #2 in 2020 Covid vaccine #1 in 2020 Coronary angiography in 2017 Laparoscopic-assisted vaginal hysterectomy in 2004 Allergies: Bavarian Cream, Egg, Penicillins, Robitussin 12 Hour Cough, and Unpasteurized Dairy . Medications: Atorvastatin Calcium 1 (20 mg) Tablet Oral daily Biotin 1 (38312 mcg) Tablet Oral daily Calcium Citrate 1 (200 mg) Tablet Oral daily cloNIDine HCl 1 Tablet (of 0.1 mg) Oral t.i.d. PRN Fluconazole 1 Tablet (of 150 mg) Oral daily PRN hydroCHLOROthiazide 1 (25 mg) Tablet Oral daily Ibuprofen 1 (600 mg) Tablet Oral t.i.d. PRN LORazepam 1 (1 mg) Tablet Oral t.i.d. PRN Naproxen Sodium 1 (220 mg) Tablet Oral daily PRN One-Daily Multi Vitamins 1 Tablet Oral daily Potassium Chloride ER 1 (20 meq) Tablet, controlled release Oral b.i.d. traZODone HCl 1 Tablet (of 50 mg) Oral at bedtime Family History: Ms. Christopher's mother is alive: lymphoma. Ms. Christopher's father at age 66: liver cancer, and lung cancer. Ms. Christopher has 1 brother who is alive: lung disease. She has 1 sister who is alive. She has 1 uncle who is : lung cancer. Father of lung cancer at age 66. Mother still living at age 88. She has been treated for lymphoma. A brother of lung disease at age 58. A 61-year-old sister is in good health. Social History: Ms. Christopher is . Ms. Christopher no longer smokes but had smoked 1.0 pack/day. She drinks occasionally. She has a history of smoking off and on for 20 years, up to a pack of cigarettes daily. She quit smoking within the past few months. She has had only rare alcohol use. Review Of Symptoms: <See Above> Vital Signs: Performed on November 28, 2020 10:51 Height - 62.00 in Weight - 169.8 lbs (HIGH) BSA - 1.78 sq.m BMI - 31.06 (HIGH) Temperature - 97.9 F (LOW) Pulse - 120 /min (HIGH) Respiration - 19 /min BP - 120/81 mm(hg) O2 Sat - 97 % Pain - 0,1 - No physically strenuous activity, but ambulatory and able to carry out light or sedentary work (e.g. office work, light house work). (ECOG) Physical Examination: Constitutional Alert, oriented, no acute distress. Skin pink, warm and dry. Head Normocephalic; atraumatic. Eyes Conjunctivae and sclerae are clear and without icterus. Pupils are reactive and equal. ENMT No oral exudates, ulcers, masses, thrush or mucositis. Oropharynx clear. Tongue normal. Hematologic/Lymphatic No petechiae or purpura. No tender or palpable lymph nodes in the cervical or supraclavicular areas. Respiratory Lungs are clear to auscultation without rhonchi or wheezing. Cardiovascular Regular rate and rhythm of heart without murmurs,clicks, gallops or rubs. Chest Right subclavian venous access device is unremarkable. Back/Spine Non-tender to palpation. Extremities No visible deformities, no cyanosis, clubbing or edema. Musculoskeletal No tenderness or swelling, normal range of motion without obvious weakness. Integumentary No rashes or lesions. Neurologic No sensory or motor deficits, normal cerebellar function, normal gait. Psychiatric Alert and oriented times three. Coherent speech. Verbalizes understanding of our discussions today. Laboratory:Test performed on December 04, 2020 14:10 WBC 2.9 10 3/uL RBC 3.30 10 6/uL HGB 10.4 g/dL HCT 30.2 % MCV 91.5 fL MCH 31.5 pg MCHC 34.4 g/dL RDW 15.4 % Platelet Count 105 10 3/cmm MPV 10.3 fL Neutrophils 1.47 10 3/uL Lymphocytes 1.3 10 3/uL Monocytes 0.1 10 3/uL Eosinophils 0.0 10 3/uL Basophils 0.0 10 3/uL Neutrophil % 51.6 % Lymphocyte % 43.7 % Monocyte % 3.1 % Eosinophil % 1.0 % Basophils % 0.3 % NRBC % 0 % CBC Slide Review Slide Review Perform SLIDE REVIEW AGREES WITH AUTOMATED RESULTS Test performed on November 28, 2020 08:44 Sodium 135 mmol/L Potassium 4.3 mmol/L Chloride 99 mmol/L CO2 25 mmol/L Anion Gap 15.3 BUN 19 mg/dL Creatinine 0.8 mg/dL Cr Clearance (Est) 99.7300 mL/min eGFR 75.6 mL/min Glucose 193 mg/dL Osmolality - Calculated 288 mOsm/kg Calcium 9.4 mg/dL Protein, Total 7.1 g/dL Albumin 4.4 g/dL Globulin 2.7 g/dL Bilirubin, Total 0.2 mg/dL ALT (SGPT) 40 U/L AST (SGOT) 24 U/L Alkaline Phosphatase 92 IU/L Test performed on Nov 02, 2020 09:10 Manual Segs % 42 % Manual Bands % 38.0 % Manual Lymphs % 14 % Atypical Lymphs % 0.0 % Total Cells Counted 100 Manual Monos % 6.0 % Manual Eos % 0 % Manual Basos % 0.0 % Polychromasia Trace Anisocytosis 1+ Platelet Estimate Normal Manual Segs Abs 9.0 10/cmm Manual Bands Abs 8.2 10 3/cmm Manual Neutrophils Abs 17.2 10 3/cmm Manual Lymphocytes Abs 3.0 10 3/cmm Manual Monocytes Abs 1.3 10 3/cmm Manual Eosinophils Abs 0.0 10 3/cmm Manual Basophils Abs 0.0 10 3/cmm Test performed on Aug 24, 2020 12:05 LDH (Total) 195 U/L TSH 1.76 uIU/mL ESR (Sed Rate) 22 mm/hr PT 12.50 SECONDS INR 0.91 Impression: 1. Poorly differentiated non-small cell carcinoma involving the hilar region of the left lung, diagnosed by left-sided open mediastinotomy on 09/03/2020. 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 By clinical evaluation, her disease was stage IIIA (T4, N0, M0) with evidence of mediastinal invasion and with evidence of recurrent laryngeal nerve involvement. 2. Hypertension. 3. Hyperlipidemia. 4. TMJ disorder. 5. Chronic anxiety. Plan/Problems Addressed at this Visit: PROBLEMS ADDRESSED TODAY 1. poorly differentiated non-small cell carcinoma involving the hilar region of the left lung. She underwent left-sided open mediastinotomy with biopsies of AP window mass on 09/03/2020. 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 By clinical evaluation, her disease was stage IIIA (T4, N0, M0) with evidence of mediastinal invasion and with evidence of recurrent laryngeal nerve involvement. She was then seen by Dr. Joel Kemp at [facility] for consideration of surgical resection. Based on her pulmonary function, she was felt to be potentially resectable, but it was recommended that she first have course of neoadjuvant chemotherapy. She began cycle 1 of carboplatin/paclitaxel chemotherapy on 09/26/2020. She experienced some flushing during the first 24 hours following that treatment. She was severely neutropenic at day 15, but she recovered uneventfully with growth factor support. Overall, she tolerated the treatment well. Follow-up imaging with CT of the chest with contrast on November 05, 2020 reports a moderate decrease in the size of the known malignancy at the left upper lobe extending into the mediastinum. The mass now measures 2.9 x 4.6 cm and extends over the length of 4.1 cm. Previously it was 5.1 x 3.3 x 5.4 cm on 08/24/2020. Slight increase in size and number of the left axillary lymph nodes but these lymph nodes measure much less than 1 cm. Noted is a prior mediastinoscopy. There was mild pleural thickening in the left thorax which was new since 08/24/2020 this may be response from the treatment or mediastinoscopy . A. Proceed with cycle 4 carboplatin paclitaxel. B. Steroid premed compliance confirmed at reduced dose of 3 tablets 6 and 12 hours each time prior to the chemotherapy. C. Continue aggressive antiemetics for high risk regimen as they are working well. D. Today's labs were reviewed in detail and discussed with Ms. Christopher and a copy was given to her. WBC 5.8, hemoglobin 12.0, platelets 260,000, ANC is 4820. Potassium 4.3 creatinine 0.8 random glucose 193 LFTs are normal. 2. Left shoulder and neck pain with left finger numbness A. MRI of the cervical spine on 11/16/2020. It was with noncontrast as she could not tolerate the IV access. The noncontrast CT reported multilevel disc osteophyte disease with no severe stenosis. Most significant stenosis is moderate at C6-7 moderate central and bilateral foraminal stenosis due to disc osteophyte complexes. Moderate left and mild foraminal stenosis at C5-6 due to disc osteophyte disease. Mild central and bilateral frontal stenosis at C3-4 with mild bilateral foraminal stenosis at C4-5. She has not had any actual imaging of the shoulder to date. 3. Chemotherapy-induced neutropenia A. She has a history after cycle 1 of an ANC of 340 on day 14. She did respond to growth factor support well. That has been maintained through cycle 3 as her ANC on day 14 of cycle 3 was 490. We will plan to continue with her growth factor support. 4. Follow-up plan A. We will plan for weekly interim CBC CMP. B. We will plan to see her back in [address] Alvarado for follow-up after she has returned to Dr. Kemp's office in [facility]. C. We discussed working up her shoulder but she states she will go to [facility] first and then decide what to do from there. D. Mrs. Christopher was instructed to contact us in interim should questions or problems arise. Signed By: Umair Diego-, AOCNP Anthony Alvarado MD <<Signature on File>>
[2020-12-12 11:07] LABS: Basophils % 0.4 %; Eosinophils % 1.1 %; Hematocrit 30.9 % (37.0-47.0); Hemoglobin 10.7 g/dL (11.5-15.3); Lymphocytes # 1.9 10^3/uL (0.8-4.8); Mean Corpuscular HGB Conc 34.6 g/dL (30.0-36.0); Mean Corpuscular Volume 92.5 fL (81-99); Mean Platelet Volume 8.8 fL (7.4-10.4); Monocytes # 0.6 10^3/uL (0.2-0.9); Monocytes % 21.8 %; Neutrophils % 8.7 %; Nucleated Red Blood Cells % 0 %; Platelet Count 169 10^3/cmm (130-400); Red Blood Count 3.34 10^6/uL (4.1-5.3); Red Cell Distribution Width 16.7 % (12.1-15.1); White Blood Count 2.8 10^3/uL (4.0-10.0)
[2020-12-12 11:21] LABS: Neutrophils # 0.24 10^3/uL (1.8-7.7)
[2020-12-12 12:41] LABS: Alanine Aminotransferase 33 U/L (0-33); Albumin Level 4.4 g/dL (3.5-5.2); Alkaline Phosphatase 79 IU/L (35-105); Anion Gap 12.6 (5-19); Aspartate Amino Transferase 23 U/L (0-32); Blood Urea Nitrogen 20 mg/dL (6-20); Calcium 9.6 mg/dL (8.5-10.5); Carbon Dioxide 29 mmol/L (22-29); Chloride 99 mmol/L (98-107); Globulin 2.7 g/dL (1.3-4.6); Glomerular Filtration Rate 75.6 mL/min (90-130); Glucose 98 mg/dL (65-115); Osmolality Calculated 287 mOsm/kg (285-295); Potassium 3.6 mmol/L (3.5-5.1); Sodium 137 mmol/L (136-145); Total Bilirubin 0.2 mg/dL (0.15-1.2); Total Protein 7.1 g/dL (6.6-8.7)
[2020-12-14 10:26] LABS: Hematocrit 31.9 % (37.0-47.0); Hemoglobin 10.7 g/dL (11.5-15.3); Mean Corpuscular HGB Conc 33.5 g/dL (30.0-36.0); Mean Corpuscular Hemoglobin 32.1 pg (28.0-34.0); Mean Corpuscular Volume 95.8 fL (81-99); Platelet Count 158 10^3/cmm (130-400); Red Blood Count 3.33 10^6/uL (4.1-5.3); Red Cell Distribution Width 17.6 % (12.1-15.1)
[2020-12-14 11:01] LABS: Slide Review Slide Review Perform
[2020-12-14 11:04] LABS: Absolute Neutrophil 7.8 10^3/cmm (1.4-6.5); Absolute Segmented Neutrophil 2.8 10/cmm (1.6-7.1); Anisocytosis 1+; Band Neutrophils Absolute 5.1 10^3/cmm (0.0-1.2); Basophils Absolute 0.1 10^3/cmm (0.0-0.2); Eosinophils 0 %; Lymphocytes 11 %; Lymphocytes Absolute 1.2 10^3/cmm (1.2-3.4); Monocytes Absolute 1.9 10^3/cmm (0.1-0.6); Platelet Estimate Normal (Normal); Segmented Neutrophils 25 %; Total Cells Counted 100 (0-100)
[2020-12-14 14:01] LABS: Alanine Aminotransferase 29 U/L (0-33); Albumin Level 4.4 g/dL (3.5-5.2); Alkaline Phosphatase 89 IU/L (35-105); Anion Gap 16.6 (5-19); Aspartate Amino Transferase 17 U/L (0-32); Blood Urea Nitrogen 21 mg/dL (6-20); Calcium 9.7 mg/dL (8.5-10.5); Carbon Dioxide 25 mmol/L (22-29); Chloride 100 mmol/L (98-107); Globulin 2.2 g/dL (1.3-4.6); Glomerular Filtration Rate 75.6 mL/min (90-130); Glucose 115 mg/dL (65-115); Osmolality Calculated 290 mOsm/kg (285-295); Potassium 3.6 mmol/L (3.5-5.1); Sodium 138 mmol/L (136-145); Total Bilirubin 0.2 mg/dL (0.15-1.2); Total Protein 6.6 g/dL (6.6-8.7)
== END 2020-12-17 23:59 | disposition home or self-care (01) ==
LOC: ONCMED 05:35
PROVIDERS: Nurse Practitioner; PCP Family Medicine; Visit Provider Internal Medicine Medical Oncology
DX: Z51.11 Encounter for antineoplastic chemotherapy (principal); C34.02 Malignant neoplasm of left main bronchus; F41.9 Anxiety disorder, unspecified; E78.00 Pure hypercholesterolemia, unspecified; I10 Essential (primary) hypertension; M26.603 Bilateral temporomandibular joint disorder, unspecified; Z79.899 Other long term (current) drug therapy
CPT/HCPCS: 36591; 80053; 85007; 85025; 96367; 96372; 96375; 96413; 96415; 96417; 99214; J1100; J1200; J1453; J2469; J3490; J7030; J7040; J7050; J9045; J9267; Q5101

== ENCOUNTER → 2020-12-21 16:12 | Outpatient (BNVA) | payer BC, SELFPAY | PROVIDERS: PCP Family Medicine; Visit Provider Nurse Practitioner Adult Health | DX: Z01.812 Encounter for preprocedural laboratory examination (principal); Z20.822 Contact with and (suspected) exposure to COVID-19 | CPT/HCPCS: 87635 ==

== ENCOUNTER → 2021-01-03 11:26 | Outpatient (BNVA) | payer BC, SELFPAY | PROVIDERS: PCP Family Medicine; Visit Provider Family Medicine | DX: J98.59 Other diseases of mediastinum, not elsewhere classified (principal); Z09 Encounter for follow-up examination after completed treatment for conditions other than malignant neoplasm; E78.00 Pure hypercholesterolemia, unspecified; F41.9 Anxiety disorder, unspecified; R60.9 Edema, unspecified; D63.0 Anemia in neoplastic disease | CPT/HCPCS: 85018 ==

== ENCOUNTER 2021-01-04 10:16 | Outpatient (RCR) | payer BC, SELFPAY ==
[2021-01-04] VITALS (12 sets, daily range): BP systolic 122–148; BP diastolic 88–104; PULSE 105–117; RESP 16–20; TEMP 35.8–36.6; O2SAT 97–100; BMI 31.6
[2021-01-04 11:27] LABS: Basophils % 0.5 %; Eosinophils % 0.3 %; Hematocrit 25.7 % (37.0-47.0); Hemoglobin 8.3 g/dL (11.5-15.3); Lymphocytes # 2.1 10^3/uL (0.8-4.8); Lymphocytes % 23.5 %; Mean Corpuscular HGB Conc 32.3 g/dL (30.0-36.0); Mean Corpuscular Hemoglobin 32.4 pg (28.0-34.0); Mean Corpuscular Volume 100.4 fL (81-99); Mean Platelet Volume 8.6 fL (7.4-10.4); Monocytes # 1.7 10^3/uL (0.2-0.9); Monocytes % 18.9 %; Neutrophils # 4.64 10^3/uL (1.8-7.7); Neutrophils % 53.4 %; Nucleated Red Blood Cells % 0 %; Platelet Count 541 10^3/cmm (130-400); Red Blood Count 2.56 10^6/uL (4.1-5.3); Red Cell Distribution Width 16.8 % (12.1-15.1); White Blood Count 8.7 10^3/uL (4.0-10.0)
[2021-01-04 13:12] LABS: Iron 18 ug/dL (37-145); Percent Saturation 8.5 % (20-50); Total Iron Binding Capacity 210 mcg/dl; Unsaturated Iron Binding 192 ug/dL (112-347)
--- NOTE | 2021-01-04 14:38 | PC.NURSE ---
Marianna Singh RN transferred patient to [facility]. Report given to Randolph Reyna and Yessica Guerra.
[2021-01-04] MEDS: FUROsemide 10 mg/mL SDV 2mL 20 MG IVP (15:25)
--- NOTE | 2021-01-04 18:05 | SUR.OPER ---
INFUSER PORT FLUSHED WITH 20ml OF SALINE FLUSH, AND IV ACCESS DC ED. BAND AID APPLIED. NO REDNESS OR SWELLING. PATIENT DISCHARGED IN STABLE CONDITION WITH FAMILY.
== END 2021-01-16 23:59 | disposition home or self-care (01) ==
LOC: ONCMED 10:16
PROVIDERS: PCP Family Medicine; Visit Provider Internal Medicine Medical Oncology
DX: C34.02 Malignant neoplasm of left main bronchus (principal); R93.89 Abnormal findings on diagnostic imaging of other specified body structures; Z79.899 Other long term (current) drug therapy
CPT/HCPCS: 36430; 36591; 83540; 83550; 85025; 86850; 86900; 86920; J1940; P9016

== ENCOUNTER → 2021-01-08 11:41 | Outpatient (BNVA) | payer BC, SELFPAY | PROVIDERS: PCP Family Medicine; Visit Provider Family Medicine | DX: D63.0 Anemia in neoplastic disease (principal); R60.9 Edema, unspecified | CPT/HCPCS: 85018 ==

== ENCOUNTER → 2021-02-04 15:46 | Outpatient (BNVA) | payer BC, SELFPAY | PROVIDERS: PCP Family Medicine; Visit Provider Family Medicine | DX: C34.92 Malignant neoplasm of unspecified part of left bronchus or lung (principal); I10 Essential (primary) hypertension; R21 Rash and other nonspecific skin eruption | CPT/HCPCS: 80053; 85025 ==

== ENCOUNTER 2021-02-06 06:16 | Outpatient (RCR) | payer BC, SELFPAY ==
--- NOTE | 2021-02-07 07:44 | ONC FU_ITS ---
Dr. Alvarado Patient Follow-Up Note Patient: Sarahi Christopher Unit #: [id number]: 1970 Dicatated By: Anthony Alvarado M.D.Date of Visit:Feb 06, 2021 Onc Med Follow-up/Prog Note Chief Complaint: Lung cancer. 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 She had presented with progressively worsening hoarseness since early June. She was seen by Dr. Major on 08/01/2020. Her flexible laryngoscopy was unrevealing. Further evaluation with neck CT on 08/16/2000 revealed a large neoplastic appearing mass in the medial left upper lung/mediastinum measuring 5.2 x 3.9 cm with superior inferior extension greater than 5 cm. There was extension into the AP window. Also noted was an ill-defined area of decreased attenuation at the tongue base and a small nodule involving the base of the uvula. Small cervical chain lymph nodes were noted bilaterally bilaterally, the largest on the right measuring 8 mm. I had seen her initially on 08/24/2020. Her staging CT scans of the chest, abdomen, and pelvis showed a 5.1 x 3.3 x 5.4 cm heterogeneously enhancing anterior mediastinal mass abutting the AP window. There was associated encasement of the distal left mainstem bronchus with associated narrowing, and there was encasement and narrowing of the distal main pulmonary artery. There was no obvious metastatic disease. As the tumor did not appear to be accessible for CT directed needle biopsy, she was referred to Dr. Long and on 09/03/2020 she underwent left-sided open mediastinotomy with biopsies of AP window mass. 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 By IHC, the tumor cells were p63 positive and TTF-1 positive. The Ki-67 was high at 50%. Her staging PET/CT on 09/08/2020 showed an FDG avid 3.8 cm superior left hilar mass with mediastinal invasion, SUV 16.5, consistent with primary lung malignancy with mediastinal invasion. There was anterior mediastinal and left-sided parasternal activity which was felt to represent postsurgical inflammatory uptake. Small mediastinal lymph nodes were too small to reliably characterize. The left true vocal cord was noted to be flaccid and FDG negative, indicative of recurrent laryngeal nerve involvement. There were no other areas of abnormal uptake. As such, by clinical evaluation her disease was stage IIIA (T4, N0, M0). With those findings, she was referred to Dr. Joel Kemp at [facility] for consideration of surgical resection. Based on her pulmonary function, he felt that she would potentially be a surgical candidate, but he did recommend a course of neoadjuvant chemotherapy prior to attempting resection. From 09/26/2020 through 11/28/2020 she received 4 cycles of neoadjuvant chemotherapy with carboplatin/paclitaxel. During treatment she required growth factor support for neutropenia, but overall she was able to tolerate the chemotherapy with acceptable toxicity. Her repeat chest CT after 2 cycles did show a moderate decrease in the size of the left upper lobe mass. There were no findings of disease progression. During that time, I had also requested next generation sequencing study on her biopsy. It showed no actionable mutations. The PD-L1 expression was positive at 1%. The tumor showed high mutational burden at 44. It was noted to be MSI stable. She then returned to [facility] and on 12/26/2020 she underwent left thoracotomy and intrapericardial left pneumonectomy with lymph node dissection. She did have locally advanced disease, but it was completely resected. Pathology showed residual poorly differentiated adenocarcinoma measuring 3.5 cm. Tumor was noted to invade mediastinal soft tissue in the hilar region. There was invasion of the adventitia of the pulmonary artery and small vessel/lymphatic invasion also was present. The bronchial, vascular, and soft tissue margins were negative for malignancy. There was metastatic adenocarcinoma involving 4/7 hilar/peribronchial lymph nodes. Pathologic staging was ypT4, ypN1. She is seen for a follow-up visit. She has had somewhat of a difficult postoperative course due to weakness/fatigue and shortness of breath. She has very limited activity tolerance. She was found to have moderately severe anemia, and she was given a PRBC transfusion, but with marginal symptomatic improvement. Her ECOG score is 2. Her blood pressure recently has been elevated, but some of that may be stress related. She is on a regular dosage of metoprolol and she also has been taking clonidine as needed. She has good appetite. She does not have fever or night sweats. She is short of breath with any activity, and she also gets short of breath lying down. She has been sleeping in a chair, because even with her head up she cannot breathe if her feet are elevated. However, her oxygen saturations are gradually improving, and she has less oxygen dependence now. She has nonproductive cough. She still has some postthoracotomy pain in the chest area and back. She currently has no GI or complaints. She has no other joint or bone pain. She had headache when her blood pressure was elevated. She has no focal neurologic symptoms. Medications: Calcium Citrate 1 (200 mg) Tablet Oral daily, cloNIDine HCl 1 Tablet (of 0.1 mg) Oral t.i.d. PRN, Fluconazole 1 Tablet (of 150 mg) Oral daily PRN, Furosemide (20 mg) Tablet Oral daily, Ibuprofen 1 (600 mg) Tablet Oral t.i.d. PRN, LORazepam 1 (1 mg) Tablet Oral t.i.d. PRN, Metoprolol Tartrate (25 mg) Tablet Oral b.i.d., Naproxen Sodium 1 (220 mg) Tablet Oral daily PRN, One-Daily Multi Vitamins 1 Tablet Oral daily, oxyCODONE HCl Tablet Oral PRN, traZODone HCl 1 Tablet (of 50 mg) Oral at bedtime Allergies: Bavarian Cream, Egg, Penicillins, Robitussin 12 Hour Cough, and Unpasteurized Dairy . Vital Signs: Performed on Feb 06, 2021 10:18 Height - 62.00 in Weight - 167.6 lbs (LOW) BSA - 1.77 sq.m BMI - 30.65 (HIGH) Temperature - 97.1 F (LOW) Pulse - 81 /min Respiration - 18 /min BP - 132/78 mm(hg) O2 Sat - 96 % Pain - 0 Fatigue - 6 Physical Examination: Constitutional - She appears short of breath with any effort, Eyes - Sclerae nonicteric. Conjunctivae clear, ENMT - No lesions noted in the oral cavity, Hematologic/Lymphatic - No cervical, clavicular, or axillary adenopathy, Respiratory - The right lung sounds clear, Cardiovascular - Heart rhythm is regular. There is no murmur, gallop, or rub noted, Abdomen - Soft. Liver and spleen are not enlarged. There is no abdominal mass or ascites noted and there is no inguinal adenopathy, Extremities - No edema, Neurologic - No focal neurologic deficits noted. Problem List: 1. Poorly differentiated non-small cell carcinoma involving the hilar region of the left lung, diagnosed by left-sided open mediastinotomy on 09/03/2020. 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 By clinical evaluation, her disease was stage IIIA (T4, N0, M0) with evidence of mediastinal invasion and with evidence of recurrent laryngeal nerve involvement. 2. Hypertension. 3. Hyperlipidemia. 4. TMJ disorder. 5. Chronic anxiety. Problems Addressed with this Encounter and Plan: 1. Patient with poorly differentiated non-small cell carcinoma involving the hilar region of the left lung. She underwent left-sided open mediastinotomy with biopsies of AP window mass on 09/03/2020. 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 By clinical evaluation, her disease was stage IIIA (T4, N0, M0) with evidence of mediastinal invasion and with evidence of recurrent laryngeal nerve involvement. She was then seen by Dr. Joel Kemp at [facility] for consideration of surgical resection. Based on her pulmonary function, she was felt to be potentially resectable, but it was recommended that she first have course of neoadjuvant chemotherapy. From 09/26/2020 through 11/28/2020 she received 4 cycles of neoadjuvant chemotherapy with carboplatin/paclitaxel. She was able to tolerate the chemotherapy with acceptable toxicity. Her repeat chest CT after 2 cycles did show a moderate decrease in the size of the left upper lobe mass. There were no findings of disease progression. During that time, I had also requested next generation sequencing study on her biopsy. It showed no actionable mutations. The PD-L1 expression was positive at 1%. The tumor showed high mutational burden at 44. It was noted to be MSI stable. She then returned to [facility] and on 12/26/2020 she underwent left thoracotomy and intrapericardial left pneumonectomy with lymph node dissection. She did have locally advanced disease, but it was completely resected. Pathology showed residual poorly differentiated adenocarcinoma measuring 3.5 cm. Tumor was noted to invade mediastinal soft tissue in the hilar region. There was invasion of the adventitia of the pulmonary artery and small vessel/lymphatic invasion also was present. The bronchial, vascular, and soft tissue margins were negative for malignancy. There was metastatic adenocarcinoma involving 4/7 hilar/peribronchial lymph nodes. Pathologic staging was ypT4, ypN1. Since the surgery she has continued to have shortness of breath and very limited activity tolerance. She otherwise appears to be doing well clinically. We discussed options for further management of her lung cancer. Her disease has been completely resected, but she has had significant risk for recurrence due to the advanced T stage and the lymph node involvement. It is unlikely that she will benefit significantly with further chemotherapy, I would be very concerned about potential toxicity with radiation. The recommendation from [facility] was to consider adjuvant immunotherapy, which is certainly worth considering with the tumor showing a high mutational burden. We discussed the fact that it would not be an FDA approved indication. I also am not aware of any data indicating beneft with immunotherapy in the postoperative adjuvant setting. I reviewed potential side effects of immunotherapy, which may include pneumonitis among other immune-mediated toxicities. Given the risk associated with immunotherapy, she is not certain if she would want to attempt that treatment. She is going to consider it. In the meantime, I am going to schedule her for surveillance chest CT. If she is able to tolerate lying flat, I also will schedule a repeat head MRI. In addition, I will see if I get her into pulmonary rehab. 2. She has been hypertensive on a fairly consistent basis. She has been taking metoprolol 25 mg, and she will continue it at the same dosage. I will add amlodipine 5 mg daily. She will continue to take clonidine as needed. Total time spent with patient during this visit was 60 minutes. Signed By: Anthony Alvarado M.D. <<Signature on File>>
== END 2021-02-16 23:59 | disposition home or self-care (01) ==
LOC: ONCMED 06:16
PROVIDERS: PCP Family Medicine; Visit Provider Internal Medicine Medical Oncology
DX: C34.02 Malignant neoplasm of left main bronchus (principal); C77.8 Secondary and unspecified malignant neoplasm of lymph nodes of multiple regions; C78.39 Secondary malignant neoplasm of other respiratory organs; I10 Essential (primary) hypertension; E78.5 Hyperlipidemia, unspecified; M26.609 Unspecified temporomandibular joint disorder, unspecified side; F41.9 Anxiety disorder, unspecified; Z79.899 Other long term (current) drug therapy
CPT/HCPCS: 96523; 99215

== ENCOUNTER 2021-02-13 08:09 | Outpatient (CLI) | payer BC, SELFPAY ==
--- NOTE | 2021-02-13 08:15 | CT_ITS ---
WS: [id number] Exam: CT chest w con* [id number] Date/Time of Exam: 02/13/2021 8:16 AM Reason For Exam: LUNG CANCER, SHORTNESS OF BREATH DLP: 679.[address] scans at [facility] use at least one of these dose optimization techniques: automat ed exposure control; mA and/or kV adjustment per patient size (includes targeted exams where dose is matched to clinical indication); or iterative reconstruction. Comparison 11/05/2020. There has been resection of the previously noted medial left upper lobe pulmonary mass. Left pneumone ctomy is noted with fluid-filled left pleural cavity. No significant mediastinal lymphadenopathy is s een. Single small anterior pericarinal lymph node noted measuring about 7 mm at greatest short axis d imension and stable in appearance. Subcentimeter stable appearing left axillary lymph nodes. The airw ay is patent. The thoracic aorta is normal in caliber. Mild coronary artery calcifications. No perica rdial effusion. The right lung is fully expanded and clear. The pulmonary arteries are clear. CT sect ions of the upper right abdomen are unremarkable. No destructive bone lesions are seen. Postoperative changes of the left thoracotomy. The chest wall is intact. CT/CT chest w con* [id number] IMPRESSION: 1. Resection of previously noted left upper lobe pulmonary mass. Status post le ft pneumonectomy with fluid-filled left pleural cavity. 2. Stable appearing subcentimeter mediastinal and left axillary lymph nodes. Ad ditional nonacute findings.
[2021-02-13] MEDS: iohexol 300 mg/mL 100 mL Btl IV (08:40)
== END 2021-02-13 08:10 | disposition home or self-care (01) ==
PROVIDERS: PCP Family Medicine; Visit Provider Internal Medicine Medical Oncology
DX: C34.02 Malignant neoplasm of left main bronchus (principal); R06.02 Shortness of breath
CPT/HCPCS: 71260; Q9967

== ENCOUNTER 2021-03-07 05:55 | Outpatient (RCR) | payer BC, SELFPAY ==
[2021-03-07 16:24] LABS: Basophils # 0.1 10^3/uL (0.0-0.1); Basophils % 0.5 %; Eosinophils # 0.1 10^3/uL (0.0-0.8); Eosinophils % 0.6 %; Hematocrit 39.2 % (37.0-47.0); Hemoglobin 12.8 g/dL (11.5-15.3); Lymphocytes # 2.7 10^3/uL (0.8-4.8); Lymphocytes % 29.1 %; Mean Corpuscular HGB Conc 32.7 g/dL (30.0-36.0); Mean Corpuscular Hemoglobin 30.5 pg (28.0-34.0); Mean Corpuscular Volume 93.3 fl (81-99); Mean Platelet Volume 9.2 fL (7.4-10.4); Monocytes # 1.1 10^3/uL (0.2-0.9); Monocytes % 12.1 %; Neutrophils # 5.36 10^3/uL (1.8-7.7); Neutrophils % 57.4 %; Nucleated Red Blood Cells % 0 %; Platelet Count 398 10^3/cmm (130-400); Red Cell Distribution Width 13.2 % (12.1-15.1); White Blood Count 9.4 10^3/uL (4.0-10.0)
[2021-03-07 17:24] LABS: Alanine Aminotransferase 17 U/L (0-33); Alkaline Phosphatase 86 IU/L (35-105); Aspartate Amino Transferase 15 U/L (0-32); Blood Urea Nitrogen 17 mg/dL (6-20); Calcium 9.6 mg/dL (8.5-10.5); Carbon Dioxide 30 mmol/L (22-29); Chloride 99 mmol/L (98-107); Globulin 3.2 g/dL (1.3-4.6); Glomerular Filtration Rate 167.6 mL/min (90-130); Glucose 78 mg/dL (65-115); Osmolality Calculated 286 mOsm/kg (285-295); Sodium 138 mmol/L (136-145); Total Bilirubin 0.2 mg/dL (0.15-1.2); Total Protein 7.2 g/dL (6.6-8.7)
--- NOTE | 2021-03-10 10:32 | ONC FU_ITS ---
Dr. Alvarado Patient Follow-Up Note Patient: Sarahi Christopher Unit #: [id number]: 1970 Dicatated By: Anthony Alvarado M.D.Date of Visit:Mar 07, 2021 Onc Med Follow-up/Prog Note Chief Complaint: Lung cancer. 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 She had presented with progressively worsening hoarseness since early June. She was seen by Dr. Major on 08/01/2020. Her flexible laryngoscopy was unrevealing. Further evaluation with neck CT on 08/16/2000 revealed a large neoplastic appearing mass in the medial left upper lung/mediastinum measuring 5.2 x 3.9 cm with superior inferior extension greater than 5 cm. There was extension into the AP window. Also noted was an ill-defined area of decreased attenuation at the tongue base and a small nodule involving the base of the uvula. Small cervical chain lymph nodes were noted bilaterally bilaterally, the largest on the right measuring 8 mm. I had seen her initially on 08/24/2020. Her staging CT scans of the chest, abdomen, and pelvis showed a 5.1 x 3.3 x 5.4 cm heterogeneously enhancing anterior mediastinal mass abutting the AP window. There was associated encasement of the distal left mainstem bronchus with associated narrowing, and there was encasement and narrowing of the distal main pulmonary artery. There was no obvious metastatic disease. As the tumor did not appear to be accessible for CT directed needle biopsy, she was referred to Dr. Long and on 09/03/2020 she underwent left-sided open mediastinotomy with biopsies of AP window mass. 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 By IHC, the tumor cells were p63 positive and TTF-1 positive. The Ki-67 was high at 50%. Her staging PET/CT on 09/08/2020 showed an FDG avid 3.8 cm superior left hilar mass with mediastinal invasion, SUV 16.5, consistent with primary lung malignancy with mediastinal invasion. There was anterior mediastinal and left-sided parasternal activity which was felt to represent postsurgical inflammatory uptake. Small mediastinal lymph nodes were too small to reliably characterize. The left true vocal cord was noted to be flaccid and FDG negative, indicative of recurrent laryngeal nerve involvement. There were no other areas of abnormal uptake. As such, by clinical evaluation her disease was stage IIIA (T4, N0, M0). With those findings, she was referred to Dr. Joel Kemp at [facility] for consideration of surgical resection. Based on her pulmonary function, he felt that she would potentially be a surgical candidate, but he did recommend a course of neoadjuvant chemotherapy prior to attempting resection. From 09/26/2020 through 11/28/2020 she received 4 cycles of neoadjuvant chemotherapy with carboplatin/paclitaxel. During treatment she required growth factor support for neutropenia, but overall she was able to tolerate the chemotherapy with acceptable toxicity. Her repeat chest CT after 2 cycles did show a moderate decrease in the size of the left upper lobe mass. There were no findings of disease progression. During that time, I had also requested next generation sequencing study on her biopsy. It showed no actionable mutations. The PD-L1 expression was positive at 1%. The tumor showed high mutational burden at 44. It was noted to be MSI stable. She then returned to [facility] and on 12/26/2020 she underwent left thoracotomy and intrapericardial left pneumonectomy with lymph node dissection. She did have locally advanced disease, but it was completely resected. Pathology showed residual poorly differentiated adenocarcinoma measuring 3.5 cm. Tumor was noted to invade mediastinal soft tissue in the hilar region. There was invasion of the adventitia of the pulmonary artery and small vessel/lymphatic invasion also was present. The bronchial, vascular, and soft tissue margins were negative for malignancy. There was metastatic adenocarcinoma involving 4/7 hilar/peribronchial lymph nodes. Pathologic staging was ypT4, ypN1. I had seen her for a follow-up visit on 02/06/2021. She was having somewhat of a difficult postoperative recovery, as she was still very short of breath, and she had virtually no activity tolerance. She was moderately anemic, and I did opt to give her a PRBC transfusion. Repeat chest CT on 02/13/2021 showed evidence of left pneumonectomy with fluid-filled left pleural cavity. The right lung was noted to be fully expanded and clear and the pulmonary arteries also appeared clear. There is no mediastinal adenopathy noted. A small anterior pericarinal lymph node measuring 7 mm appeared stable, and subcentimeter left axillary lymph nodes also appeared stable. I talked to her about exploring the possibility of adjuvant immunotherapy, but she opted against it. She is seen now for a follow-up visit. She has been feeling a little better. Her breathing has now improved to the point that she can at least lie down again. She is still oxygen dependent, but she has a neighbor to taper her flow rate down to 1/2 L/min during the night. She is just using oxygen as needed during the daytime. She still has limited activity, but she has been able to do some light work. Her ECOG score is 1. She has good appetite. She has no fever or night sweats. She does not complain of cough. She has been having some pain in the upper left chest radiating into the left breast. She still has some postthoracotomy pain. She has no GI or complaints. She has no other joint or bone pain. She has occasional headache and she is still occasionally lightheaded. She has no numbness/paresthesia or other focal neurologic symptoms. She does complain that her feet have started peeling. Medications: amLODIPine Besylate (5 mg) Tablet Oral daily, Calcium Citrate 1 (200 mg) Tablet Oral daily, cloNIDine HCl 1 Tablet (of 0.1 mg) Oral t.i.d. PRN, Fluconazole 1 Tablet (of 150 mg) Oral daily PRN, Furosemide (20 mg) Tablet Oral daily, Ibuprofen 1 (600 mg) Tablet Oral t.i.d. PRN, LORazepam 1 (1 mg) Tablet Oral t.i.d. PRN, Metoprolol Tartrate (25 mg) Tablet Oral b.i.d., Naproxen Sodium 1 (220 mg) Tablet Oral daily PRN, One-Daily Multi Vitamins 1 Tablet Oral daily, oxyCODONE HCl Tablet Oral PRN, traZODone HCl 1 Tablet (of 50 mg) Oral at bedtime Allergies: Bavarian Cream, Egg, Penicillins, Robitussin 12 Hour Cough, and Unpasteurized Dairy . Vital Signs: Performed on Mar 07, 2021 14:41 Height - 62.00 in Weight - 163.6 lbs (LOW) BSA - 1.76 sq.m BMI - 29.92 Temperature - 96.3 F (LOW) Pulse - 102 /min (HIGH) Respiration - 18 /min BP - 107/75 mm(hg) O2 Sat - 96 % Pain - 0 Fatigue - 2 Physical Examination: Constitutional - She appears short of breath with effort, Eyes - Sclerae nonicteric. Conjunctivae clear, ENMT - No lesions noted in the oral cavity, Hematologic/Lymphatic - No cervical or clavicular adenopathy, Respiratory - The right lung sounds clear, Cardiovascular - Heart rhythm is regular. There is no murmur, gallop, or rub noted, Breasts - There are no breast masses noted, and there is no other palpable abnormality in the left breast. There is no axillary adenopathy, Abdomen - Soft. Liver and spleen are not enlarged. There is no abdominal mass or ascites noted and there is no inguinal adenopathy, Extremities - No edema, Neurologic - No focal neurologic deficits noted. Lab/Imaging: Test performed on Mar 07, 2021 15:30 Sodium 138 mmol/L Potassium 4.0 mmol/L Chloride 99 mmol/L CO2 30 mmol/L Anion Gap 13.0 BUN 17 mg/dL Creatinine 0.4 mg/dL Cr Clearance (Est) 197.2100 mL/min eGFR 167.6 mL/min Glucose 78 mg/dL Osmolality - Calculated 286 mOsm/kg Calcium 9.6 mg/dL Protein, Total 7.2 g/dL Albumin 4.0 g/dL Globulin 3.2 g/dL Bilirubin, Total 0.2 mg/dL ALT (SGPT) 17 U/L AST (SGOT) 15 U/L Alkaline Phosphatase 86 IU/L WBC 9.4 10 3/uL RBC 4.20 10 6/uL HGB 12.8 g/dL HCT 39.2 % MCV 93.3 fl MCH 30.5 pg MCHC 32.7 g/dL RDW 13.2 % Platelet Count 398 10 3/cmm MPV 9.2 fL Neutrophils 5.36 10 3/uL Lymphocytes 2.7 10 3/uL Monocytes 1.1 10 3/uL Eosinophils 0.1 10 3/uL Basophils 0.1 10 3/uL Neutrophil % 57.4 % Lymphocyte % 29.1 % Monocyte % 12.1 % Eosinophil % 0.6 % Basophils % 0.5 % NRBC % 0 % Problem List: 1. Poorly differentiated non-small cell carcinoma involving the hilar region of the left lung, diagnosed by left-sided open mediastinotomy on 09/03/2020. 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 By clinical evaluation, her disease was stage IIIA (T4, N0, M0) with evidence of mediastinal invasion and with evidence of recurrent laryngeal nerve involvement. Her disease was ultimately determined to be pathologic stage IIIA (ypT4, ypN1, M0). 2. Hypertension. 3. Hyperlipidemia. 4. TMJ disorder. 5. Chronic anxiety. Problems Addressed with this Encounter and Plan: Patient with poorly differentiated non-small cell carcinoma involving the hilar region of the left lung. She underwent left-sided open mediastinotomy with biopsies of AP window mass on 09/03/2020. 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 By clinical evaluation, her disease was stage IIIA (T4, N0, M0) with evidence of mediastinal invasion and with evidence of recurrent laryngeal nerve involvement. She was then seen by Dr. Joel Kemp at [facility] for consideration of surgical resection. Based on her pulmonary function, she was felt to be potentially resectable, but it was recommended that she first have course of neoadjuvant chemotherapy. From 09/26/2020 through 11/28/2020 she received 4 cycles of neoadjuvant chemotherapy with carboplatin/paclitaxel. She was able to tolerate the chemotherapy with acceptable toxicity. Her repeat chest CT after 2 cycles did show a moderate decrease in the size of the left upper lobe mass. There were no findings of disease progression. During that time, I had also requested next generation sequencing study on her biopsy. It showed no actionable mutations. The PD-L1 expression was positive at 1%. The tumor showed high mutational burden at 44. It was noted to be MSI stable. She then returned to [facility] and on 12/26/2020 she underwent left thoracotomy and intrapericardial left pneumonectomy with lymph node dissection. She did have locally advanced disease, but it was completely resected. Pathology showed residual poorly differentiated adenocarcinoma measuring 3.5 cm. Tumor was noted to invade mediastinal soft tissue in the hilar region. There was invasion of the adventitia of the pulmonary artery and small vessel/lymphatic invasion also was present. The bronchial, vascular, and soft tissue margins were negative for malignancy. There was metastatic adenocarcinoma involving 4/7 hilar/peribronchial lymph nodes. Pathologic staging was IIIA (ypT4, ypN1, M0). She has had a difficult postoperative recovery due to shortness of breath and severely limited activity tolerance. She has been showing gradual improvement, and she has been able to gradually reduce her oxygen requirement. I had discussed looking into the possibility of adjuvant therapy with a checkpoint inhibitor, but she opted against that. As such, she is being followed expectantly. Thus far there has been no evidence of recurrence of the lung cancer. As she still has limited activity tolerance, she will be referred for pulmonary rehab, subject to verification of insurance coverage. I will otherwise just plan a follow-up visit with surveillance CT scans in 3 months. Signed By: Anthony Alvarado M.D. <<Signature on File>>
== END 2021-03-19 23:59 | disposition home or self-care (01) ==
LOC: ONCMED 05:55
PROVIDERS: PCP Family Medicine; Visit Provider Internal Medicine Medical Oncology
DX: Z08 Encounter for follow-up examination after completed treatment for malignant neoplasm (principal); Z85.118 Personal history of other malignant neoplasm of bronchus and lung; I10 Essential (primary) hypertension; E78.5 Hyperlipidemia, unspecified; M26.609 Unspecified temporomandibular joint disorder, unspecified side; F41.9 Anxiety disorder, unspecified; Z79.899 Other long term (current) drug therapy; Z92.21 Personal history of antineoplastic chemotherapy
CPT/HCPCS: 36591; 80053; 85025; 99214

== ENCOUNTER 2021-04-05 05:47 | Outpatient (RCR) | payer BC, SELFPAY ==
[2021-04-05 10:07] LABS: Cholesterol 200 mg/dL (0-200); HDL Cholesterol 40 mg/dL (60-100); LDL Cholesterol Calculated 135 mg/dL (50-129); LDL HDL Ratio 3.38 RATIO (0.00-3.22); Triglycerides 126 mg/dL (0-150)
== END 2021-04-18 23:59 | disposition home or self-care (01) ==
LOC: ONCMED 05:47
PROVIDERS: PCP Family Medicine; Visit Provider Internal Medicine Medical Oncology
DX: C34.02 Malignant neoplasm of left main bronchus (principal); Z79.899 Other long term (current) drug therapy
CPT/HCPCS: 36591; 80061

== ENCOUNTER 2021-05-03 09:00 | Outpatient (CLI) | payer BC, SELFPAY | END 2021-05-03 09:01 | disposition home or self-care (01) | PROVIDERS: PCP Family Medicine; Visit Provider Internal Medicine Medical Oncology | DX: Z45.2 Encounter for adjustment and management of vascular access device (principal) | CPT/HCPCS: 96523 ==

== ENCOUNTER 2021-05-27 08:42 | Outpatient (CLI) | payer BC, SELFPAY ==
--- NOTE | 2021-05-27 08:49 | CT_ITS ---
WS: [id number] CT HEAD TECHNIQUE: Noncontrast and contrast-enhanced CT of the head. CLINICAL INFORMATION: LUNG CANCER COMPARISON: MRI September 20, 2020 DLP: 1851.[address] scans at [facility] use at least one of these dose optimization techniques: automated e xposure control; mA and/or kV adjustment per patient size (includes targeted exams where dose is matc hed to clinical indication); or iterative reconstruction. FINDINGS: No evidence of intracranial hemorrhage or mass effect. Ventricular system and basal cisterns are noel nt. Normal hayden-white differentiation. Minimal small vessel changes. Mild parenchymal volume loss. No abnormal intracranial enhancement. No intraparenchymal enhancing lesions. Paranasal sinuses and ma stoid air cells well aerated. CT/CT head wo/w con [id number] IMPRESSION: 1. No evidence of intracranial hemorrhage or mass effect. 2. No abnormal intracranial enhancement. No enhancing parenchymal metastatic l esions. 3. Paranasal sinuses and mastoid air cells well aerated.
[2021-05-27] MEDS: iohexol 300 mg/mL 100 mL Btl IV (09:10)
== END 2021-05-27 08:43 | disposition home or self-care (01) ==
PROVIDERS: PCP Family Medicine; Visit Provider Internal Medicine Medical Oncology
DX: C34.02 Malignant neoplasm of left main bronchus (principal)
CPT/HCPCS: 70470; Q9967

== ENCOUNTER 2021-05-29 09:44 | Outpatient (CLI) | payer BC, SELFPAY ==
--- NOTE | 2021-05-29 09:52 | CT_ITS ---
WS: [id number] CT CHEST TECHNIQUE: Contrast enhanced CT of the chest with coronal and sagittal reformatted images. CLINICAL INFORMATION: LUNG CANCER COMPARISON: CT chest February 13, 2021 July 23, DLP: 668.[address] scans at [facility] use at least one of these dose optimization techniques: automated e xposure control; mA and/or kV adjustment per patient size (includes targeted exams where dose is matc hed to clinical indication); or iterative reconstruction. FINDINGS: Prior postoperative changes left pneumonectomy with fluid-filled left pleural cavity. Resection of th e previously described left upper lobe pulmonary mass. Decreased fluid in the pleural cavity today wi th a few septations and enhancing pleural thickening. Ipsilateral mediastinal shift. No significant m ediastinal lymphadenopathy. No axillary lymphadenopathy. Normal caliber thoracic aorta. Coronary calc ifications. Right lung is well aerated. No acute right pulmonary infiltrates in the right lung. Normal renal parenchymal enhancement partially visualized. Adrenal glands are normal. Normal [email or web address] junct ion. CT/CT chest w con* [id number] IMPRESSION: 1. Prior postoperative changes resection the left upper lobe pulmonary mass wi th left pneumonectomy. 2. Decreased fluid in the left pleural cavity today with a few septations in t he pleural fluid and enhancing pleural thickening. This may be due to treatment -related changes 3. Ipsilateral mediastinal shaft. 4. Right lung is well aerated. 5. No mediastinal lymphadenopathy. No axillary lymphadenopathy.
[2021-05-29] MEDS: iohexol 300 mg/mL 100 mL Btl IV (10:11)
== END 2021-05-29 09:45 | disposition home or self-care (01) ==
PROVIDERS: PCP Family Medicine; Visit Provider Internal Medicine Medical Oncology
DX: C34.90 Malignant neoplasm of unspecified part of unspecified bronchus or lung (principal); R91.8 Other nonspecific abnormal finding of lung field
CPT/HCPCS: 71260; Q9967

== ENCOUNTER 2021-06-11 14:30 | Outpatient (CLI) | payer BC, SELFPAY ==
[2021-06-11 15:03] LABS: Basophils % 0.4 %; Eosinophils # 0.1 10^3/uL (0.0-0.8); Eosinophils % 1.1 %; Hematocrit 35.9 % (37.0-47.0); Hemoglobin 12.4 g/dL (11.5-15.3); Lymphocytes # 2.3 10^3/uL (0.8-4.8); Lymphocytes % 21.7 %; Mean Corpuscular HGB Conc 34.5 g/dL (30.0-36.0); Mean Corpuscular Hemoglobin 30.5 pg (28.0-34.0); Mean Corpuscular Volume 88.4 fl (81-99); Mean Platelet Volume 9.2 fL (7.4-10.4); Monocytes # 0.9 10^3/uL (0.2-0.9); Monocytes % 8.7 %; Neutrophils # 7.18 10^3/uL (1.8-7.7); Neutrophils % 67.8 %; Nucleated Red Blood Cells % 0 %; Platelet Count 345 10^3/cmm (130-400); Red Blood Count 4.06 10^6/uL (4.1-5.3); Red Cell Distribution Width 12.7 % (12.1-15.1); White Blood Count 10.6 10^3/uL (4.0-10.0)
[2021-06-11 15:29] LABS: Alanine Aminotransferase 14 U/L (0-33); Albumin Level 3.9 g/dL (3.5-5.2); Alkaline Phosphatase 89 IU/L (35-105); Anion Gap 12.1 (5-19); Aspartate Amino Transferase 13 U/L (0-32); Blood Urea Nitrogen 19 mg/dL (6-20); Calcium 9.3 mg/dL (8.5-10.5); Carbon Dioxide 32 mmol/L (22-29); Chloride 99 mmol/L (98-107); Globulin 2.9 g/dL (1.3-4.6); Glomerular Filtration Rate 129.6 mL/min (90-130); Glucose 106 mg/dL (65-115); Osmolality Calculated 291 mOsm/kg (285-295); Potassium 4.1 mmol/L (3.5-5.1); Sodium 139 mmol/L (136-145); Thyroid Stimulating Hormone 1.02 uIU/mL (0.27-4.20); Total Bilirubin 0.2 mg/dL (0.15-1.2); Total Protein 6.8 g/dL (6.6-8.7)
--- NOTE | 2021-06-12 07:24 | ONC FU_ITS ---
Dr. Alvarado Patient Follow-Up Note Patient: Sarahi Christopher Unit #: [id number]: 1970 Dicatated By: Anthony Alvarado M.D.Date of Visit:Jun 11, 2021 Onc Med Follow-up/Prog Note Chief Complaint: Lung cancer. 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 She had presented with progressively worsening hoarseness since early June. She was seen by Dr. Major on 08/01/2020. Her flexible laryngoscopy was unrevealing. Further evaluation with neck CT on 08/16/2000 revealed a large neoplastic appearing mass in the medial left upper lung/mediastinum measuring 5.2 x 3.9 cm with superior inferior extension greater than 5 cm. There was extension into the AP window. Also noted was an ill-defined area of decreased attenuation at the tongue base and a small nodule involving the base of the uvula. Small cervical chain lymph nodes were noted bilaterally bilaterally, the largest on the right measuring 8 mm. I had seen her initially on 08/24/2020. Her staging CT scans of the chest, abdomen, and pelvis showed a 5.1 x 3.3 x 5.4 cm heterogeneously enhancing anterior mediastinal mass abutting the AP window. There was associated encasement of the distal left mainstem bronchus with associated narrowing, and there was encasement and narrowing of the distal main pulmonary artery. There was no obvious metastatic disease. As the tumor did not appear to be accessible for CT directed needle biopsy, she was referred to Dr. Long and on 09/03/2020 she underwent left-sided open mediastinotomy with biopsies of AP window mass. 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 By IHC, the tumor cells were p63 positive and TTF-1 positive. The Ki-67 was high at 50%. Her staging PET/CT on 09/08/2020 showed an FDG avid 3.8 cm superior left hilar mass with mediastinal invasion, SUV 16.5, consistent with primary lung malignancy with mediastinal invasion. There was anterior mediastinal and left-sided parasternal activity which was felt to represent postsurgical inflammatory uptake. Small mediastinal lymph nodes were too small to reliably characterize. The left true vocal cord was noted to be flaccid and FDG negative, indicative of recurrent laryngeal nerve involvement. There were no other areas of abnormal uptake. As such, by clinical evaluation her disease was stage IIIA (T4, N0, M0). With those findings, she was referred to Dr. Joel Kemp at [facility] for consideration of surgical resection. Based on her pulmonary function, he felt that she would potentially be a surgical candidate, but he did recommend a course of neoadjuvant chemotherapy prior to attempting resection. From 09/26/2020 through 11/28/2020 she received 4 cycles of neoadjuvant chemotherapy with carboplatin/paclitaxel. During treatment she required growth factor support for neutropenia, but overall she was able to tolerate the chemotherapy with acceptable toxicity. Her repeat chest CT after 2 cycles did show a moderate decrease in the size of the left upper lobe mass. There were no findings of disease progression. During that time, I had also requested next generation sequencing study on her biopsy. It showed no actionable mutations. The PD-L1 expression was positive at 1%. The tumor showed high mutational burden at 44. It was noted to be MSI stable. She then returned to [facility] and on 12/26/2020 she underwent left thoracotomy and intrapericardial left pneumonectomy with lymph node dissection. She did have locally advanced disease, but it was completely resected. Pathology showed residual poorly differentiated adenocarcinoma measuring 3.5 cm. Tumor was noted to invade mediastinal soft tissue in the hilar region. There was invasion of the adventitia of the pulmonary artery and small vessel/lymphatic invasion also was present. The bronchial, vascular, and soft tissue margins were negative for malignancy. There was metastatic adenocarcinoma involving 4/7 hilar/peribronchial lymph nodes. Pathologic staging was ypT4, ypN1. I had seen her for a follow-up visit on 02/06/2021. She was having somewhat of a difficult postoperative recovery, as she was still very short of breath, and she had virtually no activity tolerance. She was moderately anemic, and I did opt to give her a PRBC transfusion. Repeat chest CT on 02/13/2021 showed evidence of left pneumonectomy with fluid-filled left pleural cavity. The right lung was noted to be fully expanded and clear and the pulmonary arteries also appeared clear. There is no mediastinal adenopathy noted. A small anterior pericarinal lymph node measuring 7 mm appeared stable, and subcentimeter left axillary lymph nodes also appeared stable. I talked to her about exploring the possibility of adjuvant immunotherapy, but she opted against it. Her surveillance chest CT on 05/29/2021 showed postoperative changes of left pneumonectomy with fluid-filled left pleural cavity. There was decreased fluid in left pleural cavity compared to the prior study. A few septations were noted in the pleural fluid and there was some enhancing pleural thickening. The right lung appeared well aerated. There was no evidence of recurrent or metastatic disease. She is seen for a follow-up visit. She continues to complain that she feels tired and she continues to have shortness of breath with activity. However, her activity tolerance has continued to show gradual improvement, and she is not having to use her oxygen very much now. She says her heart rate does go up with activity. She is able to do some light work at home. ECOG score is 1. She has good appetite. She has not had fever or night sweats. She sometimes has hot flashes. She still has hoarseness, and she has some nonproductive cough. She has some pain in the lower sternal/epigastric area, which appears likely to be related to her surgery. She still has some postthoracotomy pain in the left side of the back. She has no GI or complaints. She has no other joint or bone pain. She does not complain of headache. She occasionally gets lightheaded. She has no numbness/paresthesia or other focal neurologic symptoms. Medications: amLODIPine Besylate (5 mg) Tablet Oral daily, Calcium Citrate 1 (200 mg) Tablet Oral daily, cloNIDine HCl 1 Tablet (of 0.1 mg) Oral t.i.d. PRN, Fluconazole 1 Tablet (of 150 mg) Oral daily PRN, Furosemide (20 mg) Tablet Oral daily, Ibuprofen 1 (600 mg) Tablet Oral t.i.d. PRN, LORazepam 1 (1 mg) Tablet Oral t.i.d. PRN, Metoprolol Tartrate (25 mg) Tablet Oral b.i.d., Naproxen Sodium 1 (220 mg) Tablet Oral daily PRN, One-Daily Multi Vitamins 1 Tablet Oral daily, oxyCODONE HCl Tablet Oral PRN, traZODone HCl 1 Tablet (of 50 mg) Oral at bedtime Allergies: Bavarian Cream, Egg, Penicillins, Robitussin 12 Hour Cough, and Unpasteurized Dairy . Vital Signs: Performed on Jun 11, 2021 16:21 Height - 62.00 in Weight - 170.6 lbs (HIGH) BSA - 1.79 sq.m BMI - 31.20 (HIGH) Temperature - 96.7 F (LOW) Pulse - 94 /min Respiration - 18 /min BP - 109/75 mm(hg) O2 Sat - 99 % Pain - 3 Fatigue - 8 Physical Examination: Constitutional - She looks pretty good generally, Eyes - Sclerae nonicteric. Conjunctivae clear, ENMT - No lesions noted in the oral cavity, Hematologic/Lymphatic - No cervical, clavicular, or axillary adenopathy, Respiratory - Breath sounds are markedly diminished on the left. The right lung sounds clear, Cardiovascular - Heart rhythm is regular. There is no murmur, gallop, or rub noted, Abdomen - Soft. Liver and spleen are not enlarged. There is no abdominal mass or ascites noted and there is no inguinal adenopathy, Extremities - No edema, Neurologic - No focal neurologic deficits noted. Lab/Imaging: Test performed on Jun 11, 2021 14:45 Sodium 139 mmol/L TSH 1.02 uIU/mL Potassium 4.1 mmol/L Chloride 99 mmol/L CO2 32 mmol/L Anion Gap 12.1 BUN 19 mg/dL Creatinine 0.5 mg/dL Cr Clearance (Est) 157.7700 mL/min eGFR 129.6 mL/min Glucose 106 mg/dL Osmolality - Calculated 291 mOsm/kg Calcium 9.3 mg/dL Protein, Total 6.8 g/dL Albumin 3.9 g/dL Globulin 2.9 g/dL Bilirubin, Total 0.2 mg/dL ALT (SGPT) 14 U/L AST (SGOT) 13 U/L Alkaline Phosphatase 89 IU/L WBC 10.6 10 3/uL RBC 4.06 10 6/uL HGB 12.4 g/dL HCT 35.9 % MCV 88.4 fl MCH 30.5 pg MCHC 34.5 g/dL RDW 12.7 % Platelet Count 345 10 3/cmm MPV 9.2 fL Neutrophils 7.18 10 3/uL Lymphocytes 2.3 10 3/uL Monocytes 0.9 10 3/uL Eosinophils 0.1 10 3/uL Basophils 0.0 10 3/uL Neutrophil % 67.8 % Lymphocyte % 21.7 % Monocyte % 8.7 % Eosinophil % 1.1 % Basophils % 0.4 % NRBC % 0 % Problem List: 1. Poorly differentiated non-small cell carcinoma involving the hilar region of the left lung, diagnosed by left-sided open mediastinotomy on 09/03/2020. 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 By clinical evaluation, her disease was stage IIIA (T4, N0, M0) with evidence of mediastinal invasion and with evidence of recurrent laryngeal nerve involvement. Her disease was ultimately determined to be pathologic stage IIIA (ypT4, ypN1, M0). 2. Hypertension. 3. Hyperlipidemia. 4. TMJ disorder. 5. Chronic anxiety. Problems Addressed with this Encounter and Plan: Patient with poorly differentiated non-small cell carcinoma involving the hilar region of the left lung. She underwent left-sided open mediastinotomy with biopsies of AP window mass on 09/03/2020. 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 By clinical evaluation, her disease was stage IIIA (T4, N0, M0) with evidence of mediastinal invasion and with evidence of recurrent laryngeal nerve involvement. She was then seen by Dr. Joel Kemp at [facility] for consideration of surgical resection. Based on her pulmonary function, she was felt to be potentially resectable, but it was recommended that she first have course of neoadjuvant chemotherapy. From 09/26/2020 through 11/28/2020 she received 4 cycles of neoadjuvant chemotherapy with carboplatin/paclitaxel. She was able to tolerate the chemotherapy with acceptable toxicity. Her repeat chest CT after 2 cycles did show a moderate decrease in the size of the left upper lobe mass. There were no findings of disease progression. During that time, I had also requested next generation sequencing study on her biopsy. It showed no actionable mutations. The PD-L1 expression was positive at 1%. The tumor showed high mutational burden at 44. It was noted to be MSI stable. She then returned to [facility] and on 12/26/2020 she underwent left thoracotomy and intrapericardial left pneumonectomy with lymph node dissection. She did have locally advanced disease, but it was completely resected. Pathology showed residual poorly differentiated adenocarcinoma measuring 3.5 cm. Tumor was noted to invade mediastinal soft tissue in the hilar region. There was invasion of the adventitia of the pulmonary artery and small vessel/lymphatic invasion also was present. The bronchial, vascular, and soft tissue margins were negative for malignancy. There was metastatic adenocarcinoma involving 4/7 hilar/peribronchial lymph nodes. Pathologic staging was IIIA (ypT4, ypN1, M0). She had a difficult postoperative recovery due to fatigue and shortness of breath. She has continued to show gradual improvement in her activity tolerance, and she has been able to gradually reduce her oxygen requirement. She has still not started pulmonary rehab, but she apparently will be in the near future. She remains on expectant management for the lung cancer. I will see her again in 3 months. In the meantime, as her blood pressure is relatively low, I will have her try stopping the amlodipine. Signed By: Anthony Alvarado M.D. <<Signature on File>>
== END 2021-06-11 14:31 | disposition home or self-care (01) ==
LOC: ONCMED 14:33
PROVIDERS: PCP Family Medicine; Visit Provider Internal Medicine Medical Oncology
DX: Z08 Encounter for follow-up examination after completed treatment for malignant neoplasm (principal); Z85.118 Personal history of other malignant neoplasm of bronchus and lung; I10 Essential (primary) hypertension; E78.5 Hyperlipidemia, unspecified; M26.603 Bilateral temporomandibular joint disorder, unspecified; F41.9 Anxiety disorder, unspecified; Z79.899 Other long term (current) drug therapy; Z92.21 Personal history of antineoplastic chemotherapy
CPT/HCPCS: 36591; 80053; 84443; 85025; 99214

== ENCOUNTER → 2021-06-12 15:19 | Outpatient (BNVA) | payer BC, SELFPAY | PROVIDERS: PCP Family Medicine; Visit Provider Internal Medicine Medical Oncology | DX: Z01.812 Encounter for preprocedural laboratory examination (principal); Z20.822 Contact with and (suspected) exposure to COVID-19 | CPT/HCPCS: 87635 ==

== ENCOUNTER 2021-06-18 08:00 | Outpatient (CLI) | payer BC, SELFPAY ==
--- NOTE | 2021-06-18 14:29 | PFTS_ITS ---
Date of Study:06/18/21 Date of Dictation: 06/18/2021 MECHANICS: Postbronchodilator forced vital capacity (FVC) is decreased. Postbronchodilator forced expiratory volume in one second (FEV1) is severely decreased at 43%. FEV1/FVC is normal. There is no significant response to bronchodilator. FLOW VOLUME LOOP: normal. LUNG VOLUMES: Total lung capacity (TLC) is reduced . Residual volume (RV) mildly reduced . DIFFUSING CAPACITY FOR CARBON MONOXIDE: moderately reduced 53% . INTERPRETATION: The pulmonary function tests are consistent with restrictive lung disease. There is moderate reduction in lung volumes. There is moderate gas transfer defect.-clinical Correlation recommended. MTDD
== END 2021-06-18 08:01 | disposition home or self-care (01) ==
PROVIDERS: PCP Family Medicine; Visit Provider Internal Medicine Medical Oncology
DX: C34.90 Malignant neoplasm of unspecified part of unspecified bronchus or lung (principal)
CPT/HCPCS: 94060; 94726; 94729; J7611

== ENCOUNTER 2021-07-03 13:30 | Outpatient (CLI) | payer BC, SELFPAY | END 2021-07-03 13:31 | disposition home or self-care (01) | LOC: ONCMED 13:31 | PROVIDERS: PCP Family Medicine; Visit Provider Internal Medicine Medical Oncology | DX: Z45.2 Encounter for adjustment and management of vascular access device (principal) | CPT/HCPCS: 96523 ==

== ENCOUNTER 2021-07-25 11:57 | Outpatient (RCR) | payer BC, SELFPAY | END 2021-08-19 23:59 | disposition home or self-care (01) | LOC: PULRHB 11:57 | PROVIDERS: PCP Family Medicine; Visit Provider Internal Medicine Medical Oncology | DX: C34.90 Malignant neoplasm of unspecified part of unspecified bronchus or lung (principal) | CPT/HCPCS: 94618; G0237; G0238; G0239 ==

== ENCOUNTER → 2021-07-29 11:04 | Outpatient (BNVA) | payer BC, SELFPAY | PROVIDERS: PCP Family Medicine; Visit Provider Family Medicine | DX: R05.9 Cough, unspecified (principal); C34.92 Malignant neoplasm of unspecified part of left bronchus or lung | CPT/HCPCS: 71046; 87400; 87635 ==

== ENCOUNTER → 2021-07-30 00:39 | Outpatient (BNVA) | payer BC, SELFPAY | PROVIDERS: PCP Family Medicine; Visit Provider Family Medicine | DX: R05.9 Cough, unspecified (principal) | CPT/HCPCS: 87801 ==

== ENCOUNTER 2021-08-09 10:04 | Outpatient (RCR) | payer BC, SELFPAY | END 2021-08-19 23:59 | disposition home or self-care (01) | LOC: ONCMED 10:04 | PROVIDERS: PCP Family Medicine; Visit Provider Internal Medicine Medical Oncology | DX: Z45.2 Encounter for adjustment and management of vascular access device (principal) | CPT/HCPCS: 96523 ==

== ENCOUNTER 2021-08-20 06:00 | Outpatient (RCR) | payer BC, SELFPAY | END 2021-09-16 23:59 | disposition home or self-care (01) | LOC: PULRHB 06:00 | PROVIDERS: PCP Family Medicine; Visit Provider Internal Medicine Medical Oncology | DX: C34.90 Malignant neoplasm of unspecified part of unspecified bronchus or lung (principal) | CPT/HCPCS: G0237; G0238; G0239 ==

== ENCOUNTER 2021-08-26 11:45 | Outpatient (CLI) | payer BC, SELFPAY ==
--- NOTE | 2021-08-26 11:56 | CT_ITS ---
WS: [id number] CT CHEST TECHNIQUE: Contrast enhanced CT of the chest with coronal and sagittal reformatted images. CLINICAL INFORMATION: LUNG CANCER COMPARISON: CT chest May 29, 2021 DLP: 798.[address] scans at [facility] use at least one of these dose optimization techniques: automated e xposure control; mA and/or kV adjustment per patient size (includes targeted exams where dose is matc hed to clinical indication); or iterative reconstruction. FINDINGS: Prior postoperative changes LEFT pneumonectomy with fluid-filled LEFT pleural cavity. Resection of th e LEFT upper lobe pulmonary mass described on prior studies. Fluid in the LEFT pleural cavity has dec reased slightly compared to previous. Associated pleural thickening. Ipsilateral mediastinal shift is unchanged. No mediastinal or hilar lymphadenopathy. No axillary lymphadenopathy. Normal caliber thor acic aorta. Coronary calcification. RIGHT lung is well aerated. No acute pulmonary infiltrates in the RIGHT lung. Adrenal glands are normal. Normal GE junction. CT/CT chest w con* [id number] IMPRESSION: 1. Prior postoperative changes resection of the LEFT upper lobe pulmonary mass with LEFT pneumonectomy. 2. Slightly decreased pleural fluid in the LEFT pleural cavity compared to pre vious. Persistent pleural thickening is unchanged. 3. Stable ipsilateral mediastinal shift. 4. RIGHT lung is well aerated. No acute pulmonary infiltrates in the RIGHT fareed g. 5. No other significant changes compared to previous.
[2021-08-26] MEDS: iodixanol 320 mg/mL 100mL Btl IV (13:20)
== END 2021-08-26 11:46 | disposition home or self-care (01) ==
PROVIDERS: PCP Family Medicine; Visit Provider Internal Medicine Medical Oncology
DX: C34.02 Malignant neoplasm of left main bronchus (principal); R93.89 Abnormal findings on diagnostic imaging of other specified body structures
CPT/HCPCS: 71260

== ENCOUNTER 2021-08-29 06:27 | Outpatient (RCR) | payer BC, SELFPAY ==
[2021-08-29 11:28] LABS: Basophils # 0.1 10^3/uL (0.0-0.1); Basophils % 0.7 %; Eosinophils # 0.1 10^3/uL (0.0-0.8); Eosinophils % 1.1 %; Hematocrit 39.9 % (37.0-47.0); Hemoglobin 12.9 g/dL (11.5-15.3); Lymphocytes # 2.6 10^3/uL (0.8-4.8); Lymphocytes % 35.6 %; Mean Corpuscular HGB Conc 32.3 g/dL (30.0-36.0); Mean Corpuscular Hemoglobin 29.5 pg (28.0-34.0); Mean Corpuscular Volume 91.3 fl (81-99); Mean Platelet Volume 8.9 fL (7.4-10.4); Monocytes # 0.8 10^3/uL (0.2-0.9); Monocytes % 10.9 %; Neutrophils # 3.82 10^3/uL (1.8-7.7); Neutrophils % 51.4 %; Nucleated Red Blood Cells % 0 %; Platelet Count 339 10^3/cmm (130-400); Red Blood Count 4.37 10^6/uL (4.1-5.3); Red Cell Distribution Width 12.6 % (12.1-15.1); White Blood Count 7.4 10^3/uL (4.0-10.0)
[2021-08-29 12:03] LABS: Alanine Aminotransferase 16 U/L (0-33); Alkaline Phosphatase 79 IU/L (35-105); Aspartate Amino Transferase 18 U/L (0-32); Blood Urea Nitrogen 17 mg/dL (6-20); Calcium 10.5 mg/dL (8.5-10.5); Carbon Dioxide 26 mmol/L (22-29); Chloride 101 mmol/L (98-107); Globulin 3.3 g/dL (1.3-4.6); Glucose 97 mg/dL (65-115); Osmolality Calculated 287 mOsm/kg (285-295); Sodium 138 mmol/L (136-145); Total Bilirubin 0.2 mg/dL (0.15-1.2); Total Protein 7.3 g/dL (6.6-8.7)
--- NOTE | 2021-09-01 11:11 | ONC FU_ITS ---
Dr. Alvarado Patient Follow-Up Note Patient: Sarahi Christopher Unit #: [id number]: 1970 Dicatated By: Anthony Alvarado M.D.Date of Visit:Aug 29, 2021 Onc Med Follow-up/Prog Note Chief Complaint: Lung cancer. 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 She had presented with progressively worsening hoarseness since early June. She was seen by Dr. Major on 08/01/2020. Her flexible laryngoscopy was unrevealing. Further evaluation with neck CT on 08/16/2000 revealed a large neoplastic appearing mass in the medial left upper lung/mediastinum measuring 5.2 x 3.9 cm with superior inferior extension greater than 5 cm. There was extension into the AP window. Also noted was an ill-defined area of decreased attenuation at the tongue base and a small nodule involving the base of the uvula. Small cervical chain lymph nodes were noted bilaterally bilaterally, the largest on the right measuring 8 mm. I had seen her initially on 08/24/2020. Her staging CT scans of the chest, abdomen, and pelvis showed a 5.1 x 3.3 x 5.4 cm heterogeneously enhancing anterior mediastinal mass abutting the AP window. There was associated encasement of the distal left mainstem bronchus with associated narrowing, and there was encasement and narrowing of the distal main pulmonary artery. There was no obvious metastatic disease. As the tumor did not appear to be accessible for CT directed needle biopsy, she was referred to Dr. Long and on 09/03/2020 she underwent left-sided open mediastinotomy with biopsies of AP window mass. 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 By IHC, the tumor cells were p63 positive and TTF-1 positive. The Ki-67 was high at 50%. Her staging PET/CT on 09/08/2020 showed an FDG avid 3.8 cm superior left hilar mass with mediastinal invasion, SUV 16.5, consistent with primary lung malignancy with mediastinal invasion. There was anterior mediastinal and left-sided parasternal activity which was felt to represent postsurgical inflammatory uptake. Small mediastinal lymph nodes were too small to reliably characterize. The left true vocal cord was noted to be flaccid and FDG negative, indicative of recurrent laryngeal nerve involvement. There were no other areas of abnormal uptake. As such, by clinical evaluation her disease was stage IIIA (T4, N0, M0). With those findings, she was referred to Dr. Joel Kemp at [facility] for consideration of surgical resection. Based on her pulmonary function, he felt that she would potentially be a surgical candidate, but he did recommend a course of neoadjuvant chemotherapy prior to attempting resection. From 09/26/2020 through 11/28/2020 she received 4 cycles of neoadjuvant chemotherapy with carboplatin/paclitaxel. During treatment she required growth factor support for neutropenia, but overall she was able to tolerate the chemotherapy with acceptable toxicity. Her repeat chest CT after 2 cycles did show a moderate decrease in the size of the left upper lobe mass. There were no findings of disease progression. During that time, I had also requested next generation sequencing study on her biopsy. It showed no actionable mutations. The PD-L1 expression was positive at 1%. The tumor showed high mutational burden at 44. It was noted to be MSI stable. She then returned to [facility] and on 12/26/2020 she underwent left thoracotomy and intrapericardial left pneumonectomy with lymph node dissection. She did have locally advanced disease, but it was completely resected. Pathology showed residual poorly differentiated adenocarcinoma measuring 3.5 cm. Tumor was noted to invade mediastinal soft tissue in the hilar region. There was invasion of the adventitia of the pulmonary artery and small vessel/lymphatic invasion also was present. The bronchial, vascular, and soft tissue margins were negative for malignancy. There was metastatic adenocarcinoma involving 4/7 hilar/peribronchial lymph nodes. Pathologic staging was ypT4, ypN1. I had seen her for a follow-up visit on 02/06/2021. She was having somewhat of a difficult postoperative recovery, as she was still very short of breath, and she had virtually no activity tolerance. She was moderately anemic, and I did opt to give her a PRBC transfusion. Repeat chest CT on 02/13/2021 showed evidence of left pneumonectomy with fluid-filled left pleural cavity. The right lung was noted to be fully expanded and clear and the pulmonary arteries also appeared clear. There is no mediastinal adenopathy noted. A small anterior pericarinal lymph node measuring 7 mm appeared stable, and subcentimeter left axillary lymph nodes also appeared stable. I talked to her about exploring the possibility of adjuvant immunotherapy, but she opted against it. Her surveillance chest CT on 05/29/2021 showed postoperative changes of left pneumonectomy with fluid-filled left pleural cavity. There was decreased fluid in left pleural cavity compared to the prior study. A few septations were noted in the pleural fluid and there was some enhancing pleural thickening. The right lung appeared well aerated. There was no evidence of recurrent or metastatic disease. She continued on expectant management. Surveillance chest CT on 08/26/2021 showed postoperative changes of left pneumonectomy. There was a slight decrease in pleural fluid in the left pleural cavity with unchanged pleural thickening. There was no evidence of recurrent or metastatic disease. She is seen for a follow-up visit. She has been feeling pretty good generally. Her energy is still just so-so, but she has had some improvement in her activity tolerance since starting pulmonary rehab. Her ECOG score is 1. She had recently started on losartan for hypertension, and since then she has had occasional episodes of lightheadedness. In July she had symptoms of upper respiratory infection, which improved on antibiotic therapy. She recently has had recurrence of sinus drainage and cough. She has not had fever or night sweats. Her appetite is the same. She has not had sore mouth or throat. She is short of breath with activity. She has chest pain here and there. She currently has no GI or complaints. She sometimes has joint pain, mainly in the elbows or knees. She has been having muscle cramps pretty much on a daily basis. She occasionally has headache and she occasionally has numbness in her fingers. Medications: amLODIPine Besylate (5 mg) Tablet Oral daily, Calcium Citrate 1 (200 mg) Tablet Oral daily, cloNIDine HCl 1 Tablet (of 0.1 mg) Oral t.i.d. PRN, Fluconazole 1 Tablet (of 150 mg) Oral daily PRN, Furosemide (20 mg) Tablet Oral daily, Ibuprofen 1 (600 mg) Tablet Oral t.i.d. PRN, LORazepam 1 (1 mg) Tablet Oral t.i.d. PRN, Losartan Potassium 1 Tablet (of 50 mg) Oral daily, Metoprolol Tartrate (25 mg) Tablet Oral b.i.d., Naproxen Sodium 1 (220 mg) Tablet Oral daily PRN, One-Daily Multi Vitamins 1 Tablet Oral daily, oxyCODONE HCl Tablet Oral PRN, traZODone HCl 1 Tablet (of 50 mg) Oral at bedtime Allergies: Bavarian Cream, Egg, Penicillins, Robitussin 12 Hour Cough, and Unpasteurized Dairy . Vital Signs: Performed on Aug 29, 2021 12:53 Height - 62.00 in Weight - 172.8 lbs (HIGH) BSA - 1.80 sq.m BMI - 31.61 (HIGH) Temperature - 96.9 F (LOW) Pulse - 96 /min Respiration - 18 /min BP - 128/87 mm(hg) O2 Sat - 96 % Pain - 0 Fatigue - 4 Physical Examination: Constitutional - She looks pretty good generally, Eyes - Sclerae nonicteric. Conjunctivae clear, ENMT - There is a polyp in the anterior aspect of the left buccal mucosa. There are no other lesions noted in the oral cavity, Hematologic/Lymphatic - No cervical, clavicular, or axillary adenopathy, Respiratory - Lungs show diminished air movement on the left, as expected. The right lung remains clear, Cardiovascular - Heart rhythm is regular. There is no murmur, gallop, or rub noted, Abdomen - Soft. Liver and spleen are not enlarged. There is no abdominal mass or ascites noted and there is no inguinal adenopathy, Extremities - No edema, Neurologic - No focal neurologic deficits noted. Lab/Imaging: Test performed on Aug 29, 2021 11:05 Sodium 138 mmol/L Potassium 4.0 mmol/L Chloride 101 mmol/L CO2 26 mmol/L Anion Gap 15.0 BUN 17 mg/dL Creatinine 0.6 mg/dL Cr Clearance (Est) 131.4800 mL/min eGFR 105.0 mL/min Glucose 97 mg/dL Osmolality - Calculated 287 mOsm/kg Calcium 10.5 mg/dL Protein, Total 7.3 g/dL Albumin 4.0 g/dL Globulin 3.3 g/dL Bilirubin, Total 0.2 mg/dL ALT (SGPT) 16 U/L AST (SGOT) 18 U/L Alkaline Phosphatase 79 IU/L WBC 7.4 10 3/uL RBC 4.37 10 6/uL HGB 12.9 g/dL HCT 39.9 % MCV 91.3 fl MCH 29.5 pg MCHC 32.3 g/dL RDW 12.6 % Platelet Count 339 10 3/cmm MPV 8.9 fL Neutrophils 3.82 10 3/uL Lymphocytes 2.6 10 3/uL Monocytes 0.8 10 3/uL Eosinophils 0.1 10 3/uL Basophils 0.1 10 3/uL Neutrophil % 51.4 % Lymphocyte % 35.6 % Monocyte % 10.9 % Eosinophil % 1.1 % Basophils % 0.7 % NRBC % 0 % Problem List: 1. Poorly differentiated non-small cell carcinoma involving the hilar region of the left lung, diagnosed by left-sided open mediastinotomy on 09/03/2020. 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 By clinical evaluation, her disease was stage IIIA (T4, N0, M0) with evidence of mediastinal invasion and with evidence of recurrent laryngeal nerve involvement. Her disease was ultimately determined to be pathologic stage IIIA (ypT4, ypN1, M0). 2. Hypertension. 3. Hyperlipidemia. 4. TMJ disorder. 5. Chronic anxiety. Problems Addressed with this Encounter and Plan: Patient with poorly differentiated non-small cell carcinoma involving the hilar region of the left lung. She underwent left-sided open mediastinotomy with biopsies of AP window mass on 09/03/2020. 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 By clinical evaluation, her disease was stage IIIA (T4, N0, M0) with evidence of mediastinal invasion and with evidence of recurrent laryngeal nerve involvement. She was then seen by Dr. Joel Kemp at [facility] for consideration of surgical resection. Based on her pulmonary function, she was felt to be potentially resectable, but it was recommended that she first have course of neoadjuvant chemotherapy. From 09/26/2020 through 11/28/2020 she received 4 cycles of neoadjuvant chemotherapy with carboplatin/paclitaxel. She was able to tolerate the chemotherapy with acceptable toxicity. Her repeat chest CT after 2 cycles did show a moderate decrease in the size of the left upper lobe mass. There were no findings of disease progression. During that time, I had also requested next generation sequencing study on her biopsy. It showed no actionable mutations. The PD-L1 expression was positive at 1%. The tumor showed high mutational burden at 44. It was noted to be MSI stable. She then returned to [facility] and on 12/26/2020 she underwent left thoracotomy and intrapericardial left pneumonectomy with lymph node dissection. She did have locally advanced disease, but it was completely resected. Pathology showed residual poorly differentiated adenocarcinoma measuring 3.5 cm. Tumor was noted to invade mediastinal soft tissue in the hilar region. There was invasion of the adventitia of the pulmonary artery and small vessel/lymphatic invasion also was present. The bronchial, vascular, and soft tissue margins were negative for malignancy. There was metastatic adenocarcinoma involving 4/7 hilar/peribronchial lymph nodes. Pathologic staging was IIIA (ypT4, ypN1, M0). She had a difficult postoperative recovery due to fatigue and shortness of breath. During follow-up she had gradual improvement in her activity tolerance, and she was able to gradually reduce her oxygen requirement. With addition of pulmonary rehab, her performance status continues to improve, though she still has limited activity. Recently she has had recurrence of sinus drainage and cough, and she will be given a refill for her cefdinir prescription. Thus far there has been no evidence of recurrence of the lung cancer. She continues on expectant management. I will see her again in 3 months. Signed By: Anthony Alvarado M.D. <<Signature on File>>
== END 2021-09-16 23:59 | disposition home or self-care (01) ==
LOC: ONCMED 06:27
PROVIDERS: PCP Family Medicine; Visit Provider Internal Medicine Medical Oncology
DX: Z08 Encounter for follow-up examination after completed treatment for malignant neoplasm (principal); Z85.118 Personal history of other malignant neoplasm of bronchus and lung; I10 Essential (primary) hypertension; E78.5 Hyperlipidemia, unspecified; M26.603 Bilateral temporomandibular joint disorder, unspecified; F41.9 Anxiety disorder, unspecified; Z79.899 Other long term (current) drug therapy; Z92.21 Personal history of antineoplastic chemotherapy
CPT/HCPCS: 36591; 80053; 85025; 99214

== ENCOUNTER 2021-09-04 11:00 | Outpatient (CLI) | payer BC, SELFPAY | END 2021-09-04 11:01 | disposition home or self-care (01) | LOC: SLEEP 09-09 07:30 | PROVIDERS: PCP Family Medicine; Visit Provider Family Medicine | DX: C34.92 Malignant neoplasm of unspecified part of left bronchus or lung (principal); Z98.890 Other specified postprocedural states; Z90.2 Acquired absence of lung [part of] | CPT/HCPCS: 94762 ==

== ENCOUNTER 2021-09-17 06:00 | Outpatient (RCR) | payer BC, SELFPAY | END 2021-10-17 23:59 | disposition home or self-care (01) | LOC: PULRHB 06:00 | PROVIDERS: PCP Family Medicine; Visit Provider Internal Medicine Medical Oncology | DX: C34.90 Malignant neoplasm of unspecified part of unspecified bronchus or lung (principal) | CPT/HCPCS: G0237; G0238; G0239 ==

== ENCOUNTER → 2021-10-01 11:57 | Outpatient (BNVA) | payer BC, SELFPAY | PROVIDERS: PCP Family Medicine; Visit Provider Family Medicine | DX: L98.9 Disorder of the skin and subcutaneous tissue, unspecified (principal) | CPT/HCPCS: 88304 ==

== ENCOUNTER 2021-10-07 13:56 | Outpatient (RCR) | payer BC, SELFPAY | END 2021-10-17 23:59 | disposition home or self-care (01) | LOC: ONCMED 13:56 | PROVIDERS: PCP Family Medicine; Visit Provider Internal Medicine Medical Oncology | DX: Z45.2 Encounter for adjustment and management of vascular access device (principal) | CPT/HCPCS: 96523 ==

== ENCOUNTER 2021-10-30 12:00 | Outpatient (CLI) | payer BC, SELFPAY | END 2021-10-30 12:01 | disposition home or self-care (01) | LOC: SLEEP 11-04 09:53 | PROVIDERS: PCP Family Medicine; Visit Provider Family Medicine | DX: G47.39 Other sleep apnea (principal) | CPT/HCPCS: G0399 ==

== ENCOUNTER 2021-11-14 10:20 | Outpatient (RCR) | payer BC, SELFPAY | END 2021-11-16 23:59 | disposition home or self-care (01) | LOC: ONCMED 10:20 | PROVIDERS: PCP Family Medicine; Visit Provider Internal Medicine Medical Oncology | DX: Z45.2 Encounter for adjustment and management of vascular access device (principal) | CPT/HCPCS: 96523 ==

== ENCOUNTER 2021-11-28 13:30 | Oncology outpatient (recurring) (ONCR) | payer BC, SELFPAY ==
--- NOTE | 2021-11-18 10:24 | CT_ITS ---
WS: [id number] CT CHEST, ABDOMEN AND PELVIS WITH CONTRAST. HISTORY: LUNG CANCER TECHNIQUE: Contiguous 5 mm axial imaging performed through the chest, abdomen and pelvis with IV cont rast, oral contrast has been provided. Coronal and sagittal reformats chest. Coronal and sagittal ref ormats through the abdomen and pelvis. All CT scans at [facility] [place] use at least one of these d ose optimization techniques: automated exposure control; mA and/or kV adjustment per patient size (in cludes targeted exams where dose is matched to clinical indication); or iterative reconstruction. CONTRAST: Omnipaque 350; 95 mL IV. DLP: 1599.75 mGy.cm COMPARISON: 08/26/2021, 08/24/[address]: Status post LEFT pneumonectomy. No recurrent cancer identified. There is a nodule adjacent to the aortic arch which was also present on the prior study but best seen on the coronal reformats. There is mild pleural thickening and a small amount of fluid remaining. Slight midline shift to the L EFT due to volume loss. No mediastinal or hilar adenopathy. Mild atherosclerosis aorta. Normal size h eart. Small hiatal hernia. Right-sided Mediport. Abdomen CT: Mildly enlarged liver. No masses or bile duct dilatation. Normal enhancement of the kamron l vein. Normal spleen. Normal pancreas and adrenal glands. No renal mass or obstruction. Moderate ath erosclerotic changes within the aorta. No adenopathy or ascites within the abdomen. Normal enhancemen t of the proximal mesenteric arteries. GI tract is not obstructed. There is a component of malrotation which is been previously described. N ormally distended stomach. Moderate constipation throughout the colon. The appendix is identified to the LEFT of midline within the pelvis. Pelvic CT: No free fluid or adenopathy. Calcifications continue into the iliac arteries. Urinary blad tal is well distended. Variable density within the bladder is probably due to contrast from ureteral jets. Prior hysterectomy. Again noted is a low-attenuation mass in the RIGHT adnexa measuring 2.7 x 2 .6 cm. There is a smaller cyst also associated with the RIGHT ovary. Very slight increase in size sin ce 2010. Degenerative disc disease is moderate at L5-S1. Mild increase in thoracic kyphosis. CT/CT chest abd pel w con* IMPRESSION: 1. Status post LEFT pneumonectomy. Stable pleural thickening throughout the LE FT thorax. No recurrent mass or adenopathy. 2. No adenopathy or ascites within the abdomen or pelvis. 3. Intestinal malrotation has been described on prior studies. Normal appendix . 4. Prior hysterectomy. 5. RIGHT ovarian cysts. Mild increase in size since 2010.
[2021-11-18] MEDS: iohexol 300 mg/mL 50 mL Btl PO (11:37)
[2021-11-18] MEDS: iohexol 350 mg/mL 100 mL Btl IV (11:37)
[2021-11-28 14:32] LABS: Basophils % 0.5 %; Eosinophils # 0.1 10^3/uL (0.0-0.8); Eosinophils % 0.7 %; Hematocrit 37.4 % (37.0-47.0); Hemoglobin 12.2 g/dL (11.5-15.3); Lymphocytes # 2.1 10^3/uL (0.8-4.8); Lymphocytes % 24.3 %; Mean Corpuscular HGB Conc 32.6 g/dL (30.0-36.0); Mean Corpuscular Hemoglobin 29.6 pg (28.0-34.0); Mean Corpuscular Volume 90.8 fl (81-99); Monocytes % 11.3 %; Neutrophils # 5.36 10^3/uL (1.8-7.7); Nucleated Red Blood Cells % 0 %; Platelet Count 312 10^3/cmm (130-400); Red Blood Count 4.12 10^6/uL (4.1-5.3); Red Cell Distribution Width 13.8 % (12.1-15.1); White Blood Count 8.5 10^3/uL (4.0-10.0)
[2021-11-28 14:55] LABS: Alanine Aminotransferase 23 U/L (0-33); Albumin Level 4.2 g/dL (3.5-5.2); Alkaline Phosphatase 77 IU/L (35-105); Anion Gap 12.1 (5-19); Aspartate Amino Transferase 22 U/L (0-32); Blood Urea Nitrogen 17 mg/dL (6-20); Calcium 9.7 mg/dL (8.5-10.5); Carbon Dioxide 28 mmol/L (22-29); Chloride 100 mmol/L (98-107); Globulin 2.8 g/dL (1.3-4.6); Glomerular Filtration Rate 75.3 mL/min (90-130); Glucose 96 mg/dL (65-115); Osmolality Calculated 283 mOsm/kg (285-295); Potassium 4.1 mmol/L (3.5-5.1); Sodium 136 mmol/L (136-145); Total Bilirubin 0.2 mg/dL (0.15-1.2)
== END 2021-12-17 23:59 | disposition home or self-care (01) ==
LOC: ONCMED 13:30
PROVIDERS: Internal Medicine Medical Oncology; PCP Family Medicine; Referring Provider Family Medicine; Visit Provider Family Medicine
DX: C34.02 Malignant neoplasm of left main bronchus (principal); Z72.0 Tobacco use
CPT/HCPCS: 36591; 71260; 74177; 80053; 85025

== ENCOUNTER 2022-01-07 09:56 | Oncology outpatient (recurring) (ONCR) | payer BC, SELFPAY | END 2022-01-16 23:59 | disposition home or self-care (01) | PROVIDERS: PCP Family Medicine; Referring Provider Family Medicine; Visit Provider Family Medicine | DX: Z45.2 Encounter for adjustment and management of vascular access device (principal); C34.02 Malignant neoplasm of left main bronchus; I70.0 Atherosclerosis of aorta; K44.9 Diaphragmatic hernia without obstruction or gangrene; R16.0 Hepatomegaly, not elsewhere classified; M51.37 Other intervertebral disc degeneration, lumbosacral region; M40.204 Unspecified kyphosis, thoracic region; N83.201 Unspecified ovarian cyst, right side | CPT/HCPCS: 96523 ==

== ENCOUNTER → 2022-01-29 08:55 | Outpatient (BNVA) | payer BC, SELFPAY | PROVIDERS: PCP Family Medicine; Visit Provider Nurse Practitioner Family | DX: R32 Unspecified urinary incontinence (principal) | CPT/HCPCS: 81003 ==

== ENCOUNTER 2022-02-04 11:46 | Outpatient (CLI) | payer BC, SELFPAY ==
--- NOTE | 2022-02-04 11:53 | MM_ITS ---
WS: [id number] BILATERAL SCREENING DIGITAL BREAST TOMOSYNTHESIS MAMMOGRAM WITH CAD HISTORY: screening COMPARISON: 01/03/2020 and 02/18/2018 Bilateral CC and MLO views with tomosynthesis and synthetic mammography submitted. Computer aided det ection analyzed. Breast composition: There are scattered areas of fibroglandular density. No suspicious masses, microc alcifications or architectural distortion. Surgical clips are noted along the medial inferior LEFT br east at the site of prior chest wall surgery. No recurrent mass at this location by mammography. MM/[place] [id number] IMPRESSION: BI-RADS: 2-Benign FOLLOW UP: 1 Year Follow-up
== END 2022-02-04 11:47 | disposition home or self-care (01) ==
PROVIDERS: PCP Family Medicine; Visit Provider Family Medicine
DX: Z12.31 Encounter for screening mammogram for malignant neoplasm of breast (principal)
CPT/HCPCS: 77063; 77067

== ENCOUNTER 2022-02-04 12:56 | Oncology outpatient (recurring) (ONCR) | payer BC, SELFPAY | END 2022-02-16 23:59 | disposition home or self-care (01) | PROVIDERS: PCP Family Medicine; Referring Provider Family Medicine; Visit Provider Internal Medicine Medical Oncology | DX: Z45.2 Encounter for adjustment and management of vascular access device (principal) | CPT/HCPCS: 96523 ==

== ENCOUNTER 2022-03-06 13:00 | Oncology outpatient (recurring) (ONCR) | payer BC, SELFPAY ==
[2022-03-06 13:25] LABS: Basophils % 0.5 %; Eosinophils # 0.1 10^3/uL (0.0-0.8); Eosinophils % 0.7 %; Hematocrit 39.9 % (37.0-47.0); Hemoglobin 13.4 g/dL (11.5-15.3); Lymphocytes # 2.3 10^3/uL (0.8-4.8); Lymphocytes % 30.6 %; Mean Corpuscular HGB Conc 33.6 g/dL (30.0-36.0); Mean Corpuscular Volume 89.5 fl (81-99); Mean Platelet Volume 9.1 fL (7.4-10.4); Monocytes # 0.7 10^3/uL (0.2-0.9); Monocytes % 9.3 %; Neutrophils % 58.8 %; Nucleated Red Blood Cells % 0 %; Platelet Count 284 10^3/cmm (130-400); Red Blood Count 4.46 10^6/uL (4.1-5.3); Red Cell Distribution Width 12.4 % (12.1-15.1); White Blood Count 7.7 10^3/uL (4.0-10.0)
[2022-03-06 14:00] LABS: Alanine Aminotransferase 23 U/L (0-33); Albumin Level 4.1 g/dL (3.5-5.2); Alkaline Phosphatase 73 U/L (35-105); Anion Gap 13.1 (5-19); Aspartate Amino Transferase 20 U/L (0-32); Blood Urea Nitrogen 15 mg/dL (6-20); Calcium 9.9 mg/dL (8.5-10.5); Carbon Dioxide 28 mmol/L (22-29); Chloride 102 mmol/L (98-107); Globulin 2.3 g/dL (1.3-4.6); Glomerular Filtration Rate 87.5 mL/min (90-130); Glucose 124 mg/dL (65-115); Osmolality Calculated 290 mOsm/kg (285-295); Potassium 4.1 mmol/L (3.5-5.1); Sodium 139 mmol/L (136-145); Total Bilirubin 0.2 mg/dL (0.15-1.2); Total Protein 6.4 g/dL (6.6-8.7)
== END 2022-03-19 23:59 | disposition home or self-care (01) ==
LOC: ONCMED 13:03
PROVIDERS: PCP Family Medicine; Visit Provider Internal Medicine Medical Oncology
DX: Z45.2 Encounter for adjustment and management of vascular access device (principal); C34.02 Malignant neoplasm of left main bronchus; I70.0 Atherosclerosis of aorta; K44.9 Diaphragmatic hernia without obstruction or gangrene; R16.0 Hepatomegaly, not elsewhere classified; M51.37 Other intervertebral disc degeneration, lumbosacral region; M40.204 Unspecified kyphosis, thoracic region; N83.201 Unspecified ovarian cyst, right side; C34.92 Malignant neoplasm of unspecified part of left bronchus or lung
CPT/HCPCS: 36591; 80053; 85025

== ENCOUNTER 2022-04-03 10:06 | Oncology outpatient (recurring) (ONCR) | payer BC, SELFPAY | END 2022-04-18 23:59 | disposition home or self-care (01) | PROVIDERS: PCP Family Medicine; Visit Provider Internal Medicine Medical Oncology | DX: Z45.2 Encounter for adjustment and management of vascular access device (principal); C34.02 Malignant neoplasm of left main bronchus | CPT/HCPCS: 96523 ==

== ENCOUNTER 2022-05-07 10:00 | Oncology outpatient (recurring) (ONCR) | payer BC, SELFPAY | END 2022-05-19 23:59 | disposition home or self-care (01) | PROVIDERS: PCP Family Medicine; Visit Provider Internal Medicine Medical Oncology | DX: Z45.2 Encounter for adjustment and management of vascular access device (principal); C34.02 Malignant neoplasm of left main bronchus | CPT/HCPCS: 96523 ==

== ENCOUNTER → 2022-05-13 10:37 | Outpatient (BNVA) | payer BC, SELFPAY | PROVIDERS: PCP Family Medicine; Visit Provider Otolaryngology | DX: D10.30 Benign neoplasm of unspecified part of mouth (principal) | CPT/HCPCS: 40812; 88305 ==

== ENCOUNTER 2022-06-03 10:26 | Outpatient (CLI) | payer BC, SELFPAY ==
[2022-06-03] MEDS: iohexol 350 mg/mL 100 mL Btl PO (10:41)
[2022-06-03] MEDS: iohexol 350 mg/mL 100 mL Btl IV (11:44)
--- NOTE | 2022-06-03 12:00 | CT_ITS ---
WS: [id number] CT CHEST, ABDOMEN, AND PELVIS TECHNIQUE: Contrast-enhanced CT of the chest, abdomen, and pelvis with coronal and sagittal reformatt ed images. CLINICAL INFORMATION: malignant neoplasm of left main bronchus COMPARISON: November 18, 2021 DLP: 1873.[address] scans at [facility] use at least one of these dose optimization techniques: automated e xposure control; mA and/or kV adjustment per patient size (includes targeted exams where dose is matc hed to clinical indication); or iterative reconstruction. CT CHEST: Prior LEFT pneumonectomy. No evidence of recurrence or progressed disease in the chest. RIGHT lung is well aerated. Volume loss LEFT lung with RIGHT to LEFT midline shift unchanged. Stable pleural thick ening and pleural fluid LEFT lung. Normal caliber thoracic aorta. No mediastinal or hilar lymphadenopathy. No axillary lymphadenopathy. Previously described nodule adjacent to the aortic arch not seen today. A few normal sized peribronch ial lymph nodes. No suspicious lesions in the RIGHT lung. CT ABDOMEN AND PELVIS: Mild diffuse fatty infiltration liver. Normal portal vein and splenic vein. Normal spleen. Normal GE junction. Normal pancreatic parenchymal enhancement. Normal spleen. Adrenal glands are normal. Normal renal parenchymal enhancement. No hydronephrosis. A few incidental tiny renal cysts. Pelvic phleboliths. Stable RIGHT ovarian cysts. Adrenal glands are normal. Normal caliber abdominal a antonio. Celiac and SMA are patent. No abdominal or pelvic lymphadenopathy. Prior hysterectomy. Normal s igmoid colon. Tiny fat-containing umbilical hernia. CT/CT chest abd pel w con* IMPRESSION: 1. Prior postoperative changes LEFT pneumonectomy. No evidence of recurrent or progressive disease. 2. No lymphadenopathy in the chest abdomen or pelvis. 3. Prior hysterectomy. 4. Stable RIGHT ovarian cysts. 5. Prior hysterectomy 6. Previously described intestinal malrotation.
== END 2022-06-03 10:27 | disposition home or self-care (01) ==
LOC: RAD 10:26
PROVIDERS: PCP Family Medicine; Visit Provider Internal Medicine Medical Oncology
DX: C34.02 Malignant neoplasm of left main bronchus (principal); N83.201 Unspecified ovarian cyst, right side
CPT/HCPCS: 71260; 74177; Q9967

== ENCOUNTER 2022-06-05 14:06 | Oncology outpatient (recurring) (ONCR) | payer BC, SELFPAY | END 2022-06-18 23:59 | disposition home or self-care (01) | PROVIDERS: PCP Family Medicine; Visit Provider Internal Medicine Medical Oncology | DX: Z45.2 Encounter for adjustment and management of vascular access device (principal); C34.02 Malignant neoplasm of left main bronchus | CPT/HCPCS: 96523 ==

== ENCOUNTER 2022-06-25 10:59 | Oncology outpatient (recurring) (ONCR) | payer BC, SELFPAY ==
[2022-06-25 11:30] LABS: Basophils # 0.1 10^3/uL (0.0-0.1); Basophils % 0.7 %; Eosinophils # 0.1 10^3/uL (0.0-0.8); Eosinophils % 0.7 %; Hematocrit 39.7 % (37.0-47.0); Hemoglobin 13.3 g/dL (11.5-15.3); Lymphocytes # 2.2 10^3/uL (0.8-4.8); Lymphocytes % 29.7 %; Mean Corpuscular HGB Conc 33.5 g/dL (30.0-36.0); Mean Corpuscular Hemoglobin 30.3 pg (28.0-34.0); Mean Corpuscular Volume 90.4 fl (81-99); Monocytes # 0.6 10^3/uL (0.2-0.9); Monocytes % 8.8 %; Neutrophils # 4.37 10^3/uL (1.8-7.7); Neutrophils % 59.8 %; Nucleated Red Blood Cells % 0 %; Platelet Count 379 10^3/cmm (130-400); Red Blood Count 4.39 10^6/uL (4.1-5.3); Red Cell Distribution Width 12.2 % (12.1-15.1); White Blood Count 7.3 10^3/uL (4.0-10.0)
[2022-06-25 12:03] LABS: Alanine Aminotransferase 23 U/L (0-33); Albumin Level 4.1 g/dL (3.5-5.2); Alkaline Phosphatase 66 U/L (35-105); Anion Gap 13.6 (5-19); Aspartate Amino Transferase 20 U/L (0-32); Blood Urea Nitrogen 13 mg/dL (6-20); Carbon Dioxide 29 mmol/L (22-29); Chloride 99 mmol/L (98-107); Globulin 2.9 g/dL (1.3-4.6); Glomerular Filtration Rate 104.6 mL/min (90-130); Glucose 127 mg/dL (65-115); Osmolality Calculated 288 mOsm/kg (285-295); Potassium 3.6 mmol/L (3.5-5.1); Sodium 138 mmol/L (136-145); Thyroid Stimulating Hormone 1.38 uIU/mL (0.27-4.20); Total Bilirubin 0.2 mg/dL (0.15-1.2)
== END 2022-07-19 23:59 | disposition home or self-care (01) ==
PROVIDERS: PCP Family Medicine; Visit Provider Internal Medicine Medical Oncology
DX: C34.02 Malignant neoplasm of left main bronchus (principal); C78.1 Secondary malignant neoplasm of mediastinum; C78.39 Secondary malignant neoplasm of other respiratory organs; C77.8 Secondary and unspecified malignant neoplasm of lymph nodes of multiple regions; R53.83 Other fatigue; R06.02 Shortness of breath; Z99.81 Dependence on supplemental oxygen; R00.0 Tachycardia, unspecified; Z79.899 Other long term (current) drug therapy; Z87.891 Personal history of nicotine dependence
CPT/HCPCS: 36591; 80053; 84443; 85025

== ENCOUNTER 2022-07-03 11:46 | Day surgery (SDC) | payer BC, SELFPAY ==
[2022-07-02 14:56] VITALS: BMI 34.7
[2022-07-03 12:04] VITALS: BMI 34.7
[2022-07-03] MEDS: sodium chloride 0.9% 1,000 ML 30 ML (12:32)
[2022-07-03] MEDS: vancomycin 1,000 MG in sodium chloride 0.9% 250 ML 166 MG IV (13:02)
--- NOTE | 2022-07-03 14:40 | W.PM.OPSUD ---
Surgery/Procedure H&P Update DATE OF PROCEDURE: July 03, 2022 DATE H&P PERFORMED: 08/21/20 PREOP DIAGNOSIS: Mediport in place PLANNED PROCEDURE: Operation Date: 07/03/22 14:35 Proposed Procedures p Portacath Removal 92295,[id number](Not Applicable) - Rajiv Brennan DO
[2022-07-03] MEDS: midazolam 1 mg/mL INJ 2 mL 2 MG IVP (14:44)
[2022-07-03 14:50] VITALS: BP 146/95; PULSE 101; RESP 18; O2SAT 100
[2022-07-03 14:55] VITALS: BP 152/93; PULSE 88; RESP 18; O2SAT 100
[2022-07-03 15:00] VITALS: BP 105/58; PULSE 77; RESP 16; O2SAT 100
[2022-07-03 15:05] VITALS: BP 107/66; PULSE 100; RESP 16; O2SAT 98
[2022-07-03 15:10] VITALS: BP 136/97; PULSE 77; RESP 16; O2SAT 98
--- NOTE | 2022-07-03 15:11 | PM.OP ---
Operative Report Date of procedure: July 03, 2022 Pre-op diagnosis: Preop Diagnosis Mediport in place Post-op diagnosis: same Procedure done: Mediport removal Specimens removed/disposition: PowerPort Surgeon: Dr. Rajiv Brennan DO Anesthesia: Local Estimated blood loss (mL): 3 Complications: None apparent Brief History: This is a very pleasant 52-year-old female who was treated with chemotherapy for bronchial cancer. Her last treatment was about a year and a half ago and she desires Mediport removal. The risks and benefits of the procedure were explained and documented. Procedure: Patient was taken to the operating room and her right chest was prepped and draped in a sterile manner. 1% lidocaine with epinephrine was infiltrated around the MediPort and catheter. Using a 15 blade the previous incision was opened, the subcutaneous tissue was divided using electrocautery and MediPort along the catheter was dissected free from the surrounding subcutaneous tissue and removed entirely. The wound was irrigated with saline, hemostasis ensured with electrocautery. A figure of 8 stitch was placed in the catheter tunnel with 3-0 Vicryl. Subcutaneous tissue was approximated using 3-0 Vicryl suture and skin was closed using running subcuticular 4-0 Monocryl suture. 4x4 and sterile dressings were used as a pressure dressing. The patient was transferred to the recovery room in stable condition.
[2022-07-03 15:17] VITALS: BP 135/94; PULSE 83; RESP 16; TEMP 36.3; O2SAT 96
== END 2022-07-03 15:31 | disposition home or self-care (01) ==
PROVIDERS: Family Provider Internal Medicine Medical Oncology; PCP Family Medicine; Visit Provider Surgery
PROC: (CPT 36589; principal; 2022-07-03 14:25)
DX: Z45.2 Encounter for adjustment and management of vascular access device (principal); Z85.118 Personal history of other malignant neoplasm of bronchus and lung; F41.9 Anxiety disorder, unspecified; F32.A Depression, unspecified; I10 Essential (primary) hypertension; M79.7 Fibromyalgia; E78.00 Pure hypercholesterolemia, unspecified; G47.30 Sleep apnea, unspecified
CPT/HCPCS: 36590; J2250; J3370; J7030; J7050

== ENCOUNTER → 2022-10-14 12:30 | Outpatient (BNVA) | payer BC, SELFPAY | PROVIDERS: Family Provider Internal Medicine Medical Oncology; PCP Family Medicine; Visit Provider Family Medicine | DX: E78.00 Pure hypercholesterolemia, unspecified (principal); D64.9 Anemia, unspecified; Z98.890 Other specified postprocedural states; Z90.2 Acquired absence of lung [part of]; C34.02 Malignant neoplasm of left main bronchus; R21 Rash and other nonspecific skin eruption; G47.30 Sleep apnea, unspecified; D63.0 Anemia in neoplastic disease; F41.9 Anxiety disorder, unspecified; L20.9 Atopic dermatitis, unspecified | CPT/HCPCS: 80053; 83735; 84443; 85025 ==

== ENCOUNTER 2022-12-26 07:17 | Outpatient (CLI) | payer BC, SELFPAY ==
[2022-12-26] MEDS: iohexol 350 mg/mL 500 mL Btl (per mL) IV (07:40)
[2022-12-26] MEDS: iohexol 350 mg/mL 500 mL Btl (per mL) PO (07:41)
--- NOTE | 2022-12-26 08:30 | CTR_ITS ---
PROCEDURE INFORMATION: Exam: CT Chest With Contrast; Diagnostic Exam date and time: 12/26/2022 8:26 AM Age: 52 years old Clinical indication: Condition or disease; Lung condition and disease; Cancer of the lung; Other: Unspecified lung cancer with history of left lung surgery; Prior surgery; Surgery date: 6+ months; Surgery type: Surgery--lt lung, hyst, ribs; Additional info: Surveillance TECHNIQUE: Imaging protocol: Diagnostic computed tomography of the chest with contrast. Radiation optimization: All CT scans at this facility use at least one of these dose optimization techniques: automated exposure control; mA and/or kV adjustment per patient size (includes targeted exams where dose is matched to clinical indication); or iterative reconstruction. Contrast material: OMNI 350; Contrast volume: 100 ml; Contrast route: INTRAVENOUS (IV); REPORTING DATA: Count of CT and Cardiac NM exams in prior 12 months: This patient has received [address] and 0 known cardiac nuclear medicine studies in the 12 months prior to the current study. COMPARISON: 1. CT chest abdpel w/*[id number] 06/03/2022 11:[address] chest abdpel w/*[id number] 08/24/2020 12:[address] chest w con* [id number] 08/26/2021 1:[address] chest abdpel w/*[id number] 11/18/2021 11:59 AM RADIATION DOSE METRICS: Total DLP (mGy-cm): 1115.11 FINDINGS: Lungs: Right lung is clear. There are tiny pulmonary nodules measuring less than 3 mm right upper lobe series 3, image 8, 11 and 14 unchanged from 08/24/2020. No further follow-up for these nodules is required. Findings of left pneumonectomy are again identified. Pleural spaces: Unremarkable. No pneumothorax. No pleural effusion. 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 Heart: Heart is within normal limits of size. Is no pericardial effusion. Lymph nodes: There is some small paratracheal lymph nodes, largest is pretracheal on image number 18 measuring 6 x 13 mm in there is a small prevascular lymph node anterior to the aortic arch measuring 6 x 10 mm which is less prominent than on 11/18/2021. Vasculature: Unremarkable. No aortic aneurysm. Bones/joints: Left 5th rib resection noted.. No acute fracture. Soft tissues: Unremarkable. 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 PROCEDURE INFORMATION: Exam: CT Abdomen And Pelvis With Contrast Exam date and time: 12/26/2022 8:26 AM Age: 52 years old Clinical indication: Condition or disease; Lung condition and disease; Cancer of the lung; Other: Unspecified lung cancer with history of left lung surgery; Prior surgery; Surgery date: 6+ months; Surgery type: Surgery--lt lung, hyst, ribs; Additional info: Surveillance TECHNIQUE: Imaging protocol: Computed tomography of the abdomen and pelvis with contrast. Radiation optimization: All CT scans at this facility use at least one of these dose optimization techniques: automated exposure control; mA and/or kV adjustment per patient size (includes targeted exams where dose is matched to clinical indication); or iterative reconstruction. Contrast material: OMNI 350; Contrast volume: 100 ml; Contrast route: INTRAVENOUS (IV); REPORTING DATA: Count of CT and Cardiac NM exams in prior 12 months: This patient has received [address] and 0 known cardiac nuclear medicine studies in the 12 months prior to the current study. COMPARISON: 1. CT chest abdpel w/*[id number] 06/03/2022 11:[address] chest abdpel w/*[id number] 08/24/2020 12:[address] chest abdpel w/*[id number] 11/18/2021 11:59 AM RADIATION DOSE METRICS: Total DLP (mGy-cm): 1115.11 FINDINGS: Liver: There is a diffuse decrease in hepatic parenchymal density, consistent with moderate fatty infiltration. There is no focal abnormality within the liver. Gallbladder and bile ducts: Normal. No calcified stones. No ductal dilation. Pancreas: The pancreas is normal. Spleen: The spleen is normal. Adrenal glands: The adrenal glands are normal. Kidneys and ureters: There are small benign-appearing cortical cysts in the right kidney. The left kidney is normal. There is no evidence of hydronephrosis. There is no evidence of renal or ureteral calcifications. Stomach and bowel: There is no evidence of colitis/diverticulitis. 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 There is no evidence of intestinal obstruction. Appendix: A normal appendix is identified. Intraperitoneal space: There is no evidence of free intraperitoneal fluid. Vasculature: The aorta demonstrates moderate atherosclerotic calcification. Lymph nodes: There is no evidence of lymphadenopathy. Urinary bladder: Unremarkable as visualized. Reproductive: There has been a hysterectomy. There are right adnexal cysts measuring 15 x 20 and 25 x 32 mm not significantly changed. Bones/joints: Unremarkable. No acute fracture. Soft tissues: Unremarkable. CT/CT chest abdpel w/*[id number] IMPRESSION: Stable postsurgical findings. No evidence of recurrence or metastasis in the chest. IMPRESSION: 1. Fatty liver 2. No evidence of metastatic disease within the abdomen. COMMENTS: Consistent with the [employer]'s Incidental Findings Committee white paper (J Am Maria Elena Radiol 2018): Any incidental renal lesion less than 1 cm or classified as too small to characterize, or any incidental cystic renal lesion characterized as simple-appearing, is likely benign. No follow-up imaging is recommended for these lesions per consensus recommendations based on imaging criteria.
== END 2022-12-26 07:18 | disposition home or self-care (01) ==
PROVIDERS: PCP Family Medicine; Visit Provider Internal Medicine Medical Oncology
DX: C34.02 Malignant neoplasm of left main bronchus (principal); K76.0 Fatty (change of) liver, not elsewhere classified; Z90.2 Acquired absence of lung [part of]; Z90.89 Acquired absence of other organs
CPT/HCPCS: 71260; 74177; Q9967

== ENCOUNTER 2022-12-31 11:04 | Oncology outpatient (recurring) (ONCR) | payer BC, SELFPAY ==
[2022-12-31 11:34] VITALS: BP 108/78; PULSE 83; RESP 18; TEMP 36.2; O2SAT 98
[2022-12-31 11:49] LABS: Basophils % 0.4 %; Eosinophils # 0.1 10^3/uL (0.0-0.8); Eosinophils % 0.7 %; Hematocrit 42.1 % (37.0-47.0); Hemoglobin 14.4 g/dL (11.5-15.3); Lymphocytes # 2.9 10^3/uL (0.8-4.8); Lymphocytes % 31.3 %; Mean Corpuscular HGB Conc 34.2 g/dL (30.0-36.0); Mean Corpuscular Hemoglobin 30.6 pg (28.0-34.0); Mean Corpuscular Volume 89.6 fl (81-99); Mean Platelet Volume 9.1 fL (7.4-10.4); Monocytes # 0.9 10^3/uL (0.2-0.9); Monocytes % 10.1 %; Neutrophils % 57.2 %; Nucleated Red Blood Cells % 0 %; Platelet Count 323 10^3/cmm (130-400); Red Cell Distribution Width 12.7 % (12.1-15.1); White Blood Count 9.1 10^3/uL (4.0-10.0)
[2022-12-31 12:08] LABS: Alanine Aminotransferase 29 U/L (0-33); Albumin Level 4.2 g/dL (3.5-5.2); Alkaline Phosphatase 63 U/L (35-105); Anion Gap 15.5 (5-19); Aspartate Amino Transferase 24 U/L (0-32); Blood Urea Nitrogen 14 mg/dL (6-20); Calcium 10.1 mg/dL (8.5-10.5); Carbon Dioxide 27 mmol/L (22-29); Chloride 98 mmol/L (98-107); Glomerular Filtration Rate 129.1 mL/min (90-130); Glucose 85 mg/dL (65-115); Osmolality Calculated 284 mOsm/kg (285-295); Potassium 3.5 mmol/L (3.5-5.1); Sodium 137 mmol/L (136-145); Total Bilirubin 0.2 mg/dL (0.15-1.2); Total Protein 7.2 g/dL (6.6-8.7)
== END 2023-01-16 23:59 | disposition home or self-care (01) ==
PROVIDERS: PCP Family Medicine; Visit Provider Internal Medicine Medical Oncology
DX: C34.02 Malignant neoplasm of left main bronchus (principal)
CPT/HCPCS: 36415; 80053; 85025

== ENCOUNTER 2023-01-02 11:35 | Outpatient (CLI) | payer BC, SELFPAY ==
--- NOTE | 2023-01-02 11:46 | XR_ITS ---
WS: [id number] XR lumbar spine 2-3V* [id number] REASON FOR EXAM: right low back/groin pain FINDINGS: Normal lumbar spine curvatures. No significant vertebral body abnormality. Mild narrowing of the L1-L2 disc space. Significant narrowing of the L5-S1 disc space with vacuum phe nomena, endplate sclerosis and osteophytosis. Mild degenerative changes in the facet joints L4-S1. No spondylolysis or spondylolisthesis. XR/XR lumbar spine 2-3V* [id number] IMPRESSION: Degenerative spondylosis of the lumbar spine as above.
--- NOTE | 2023-01-02 11:46 | XR_ITS ---
WS: [id number] XR pelvis min 3V [id number] REASON FOR EXAM: right low back/groin pain FINDINGS: Normal sacroiliac joints. Normal sacrum. Normal iliac bones. No findings for metastatic disease. Hip joints are symmetric with minimal joint space narrowing and mild subchondral sclerosis and osteop hytosis of the acetabulum. Femoral head and neck are normal bilaterally. No findings for metastatic disease. XR/XR pelvis min 3V [id number] IMPRESSION: Mild symmetric osteoarthritis as above.
== END 2023-01-02 11:36 | disposition home or self-care (01) ==
LOC: RAD 11:37
PROVIDERS: PCP Family Medicine; Visit Provider Nurse Practitioner Family
DX: M16.0 Bilateral primary osteoarthritis of hip (principal); M47.817 Spondylosis without myelopathy or radiculopathy, lumbosacral region
CPT/HCPCS: 72100; 72190

== ENCOUNTER 2023-02-04 15:38 | Outpatient (CLI) | payer BC, SELFPAY ==
--- NOTE | 2023-02-04 16:00 | MR_ITS ---
WS: [id number] MRI LUMBAR SPINE WITH CONTRAST TECHNIQUE: Sagittal T1, T2 and STIR imaging. Axial T1 and T2 imaging. Post gadolinium imaging was obt ained. CLINICAL INFORMATION: right low back pain, narrowing of L5-S1, history of lung ca COMPARISON: None. FINDINGS: Counting performed from the craniocervical junction. 4 lumbar type vertebral bodies. L5 is sacralized . Recommend plain film correlation prior to surgical intervention. Degenerative disc disease with dis c space narrowing worse L4-L5 with endplate degenerative change no evidence of enhancing metastatic d isease. No high-grade central canal stenosis. L1-L2: Normal. L2-L3: Slight retrolisthesis. Mild annular bulging. Mild facet arthropathy. Spinal canal and foramen are patent. L3-L4: Mild annular bulging with slight effacement of ventral thecal sac. Slight narrowing of the sub articular recess bilaterally. Foramen are patent. Moderate facet arthropathy. L4-L5: Slight retrolisthesis. Disc bulging with slight impingement traversing LEFT greater than RIGHT S1 nerve roots. Mild LEFT and no significant RIGHT foraminal narrowing. L5-S1: L5 is sacralized. Spinal canal and foramen are patent at this level. Visualized pelvic bony structures: Normal. Paravertebral soft tissues: Normal. Tiny central protrusion cervical spine at C6-C7. MR/MR lumbar spine wo/w con [id number] IMPRESSION: 1. No evidence of enhancing bony metastatic disease. 2. Counting performed from the craniocervical junction. 4 lumbar type vertebra l bodies. L5 is sacralized. 3. Mild annular bulging L3-L4 with slight effacement of the ventral thecal sac . 4. Mild annular bulging L4-L5 with slight narrowing of the subarticular recess and slight contact of the traversing LEFT greater than RIGHT L5 nerve roots. 5. Mild LEFT L4-L5 foraminal narrowing. 6. Moderate facet arthropathy L3-L4 L4-L5.
[2023-02-04] MEDS: gadobenate dimeglumine 20 mL vial IV (16:23)
== END 2023-02-04 15:39 | disposition home or self-care (01) ==
LOC: RAD 15:39
PROVIDERS: PCP Family Medicine; Visit Provider Nurse Practitioner Family
DX: M54.50 Low back pain, unspecified (principal)
CPT/HCPCS: 72158; A9577

== ENCOUNTER 2023-04-01 10:51 | Outpatient (CLI) | payer BC, SELFPAY ==
--- NOTE | 2023-04-01 11:02 | MM_ITS ---
WS: [id number] BILATERAL SCREENING DIGITAL TOMOSYNTHESIS MAMMOGRAM WITH CAD HISTORY: SCREENING, history of lung cancer. COMPARISON: None available. Bilateral CC and MLO views with tomosynthesis and synthetic mammography submitted. Computer aided det ection analyzed. Breast composition: There are scattered areas of fibroglandular density. No suspicious masses, microc alcifications or architectural distortion. Surgical clips in the medial LEFT breast from prior lung s urgery. IMPRESSION: MM/[place] [id number] BI-RADS: 2-Benign FOLLOW UP: 1 Year Follow-up
== END 2023-04-01 10:52 | disposition home or self-care (01) ==
LOC: MOBLMAM 11:01
PROVIDERS: PCP Family Medicine; Visit Provider Family Medicine
DX: Z12.31 Encounter for screening mammogram for malignant neoplasm of breast (principal)
CPT/HCPCS: 77063; 77067

== ENCOUNTER → 2023-04-02 14:36 | Outpatient (BNVA) | payer BC, SELFPAY | PROVIDERS: PCP Family Medicine; Visit Provider Family Medicine | DX: E28.39 Other primary ovarian failure (principal); C34.02 Malignant neoplasm of left main bronchus; E03.9 Hypothyroidism, unspecified; I47.1 Supraventricular tachycardia; R06.02 Shortness of breath; Z98.890 Other specified postprocedural states; Z90.2 Acquired absence of lung [part of] | CPT/HCPCS: 84443 ==

== ENCOUNTER 2023-04-17 08:34 | Outpatient (CLI) | payer BC, SELFPAY ==
--- NOTE | 2023-04-17 08:45 | XR_ITS ---
WS: [id number] Inspiration and expiration PA chest x-rays, 04/17/2023 Clinical Data: Z98.890 - Other specified postprocedural states Comparison: CT chest abdomen pelvis, 12/26/2022 Findings: There is normal diaphragmatic movement. There is no mediastinal shift. No pneumothorax, mass or effus ion is seen in the right lung. There is opacification of the left thorax consistent with a pneumonect joaquin. There is elevation of the left diaphragm. There are surgical clips in the left mediastinum. Ther e is absence of the left fifth rib from the pneumonectomy. Impression: 1. Normal diaphragmatic movement on inspiration and expiration. 2. No mediastinal shift on inspiration or expiration. 3. Pneumonectomy changes of the left lung are stable.
== END 2023-04-17 08:35 | disposition home or self-care (01) ==
PROVIDERS: PCP Family Medicine; Visit Provider Family Medicine
DX: Z98.890 Other specified postprocedural states (principal); Z90.2 Acquired absence of lung [part of]
CPT/HCPCS: 71046

== ENCOUNTER 2023-04-28 14:50 | Outpatient (RCR) | payer BC, SELFPAY | END 2023-05-19 23:59 | disposition home or self-care (01) | LOC: SPT 14:50 | PROVIDERS: PCP Family Medicine; Visit Provider Anesthesiology Pain Medicine | DX: M54.50 Low back pain, unspecified (principal); G89.29 Other chronic pain | CPT/HCPCS: 97161 ==

== ENCOUNTER 2023-05-08 12:26 | Outpatient (CLI) | payer BC, SELFPAY ==
[2023-05-08 12:38] VITALS: BMI 35.3
--- NOTE | 2023-05-08 12:39 | ECG_ITS ---
[facility] Test Date: 2023-05-08 Pat Name: Sarahi Christopher Department: Room: Gender: Female Neuropsychology Medical Consultant: Dhiraj Rahman : 1970 Requested By: Candis Blue Order Number: [id number] Sima MD: Reina Rutherford M.D. Interpretive Statements NAME OF STUDY: TREADMILL STRESS TEST INDICATION: UA, PROCEDURE: At the baseline, the patient's blood pressure was 123/78 with a heart rate of 94. The baseline electrocardiogram showed normal sinus rhythm nonspecific ST-T changes in the inferior and anterolateral leads. Q waves in the inferior leads suggesting old inferior wall CA. The patient exercised for 3 minutes on a standard Grayson protocol. Patient attained a maximum heart rate of 148 beats per minute(89% of the maximum predicted heart rate) with a blood pressure at the peak exercise of 130/72 mm Hg. The EKG at the peak exercise revealed no significant changes. Patient did not have any chest pain or any significant cardiac arrhythmias with the exercise During the recovery phase, there were no new changes. Blood pressure at the end of the recovery phase was 120/76 mm Hg with a heart rate of 10 per minute. CONCLUSION: 1. No significant EKG changes with the treadmill exercise 2. No exercise-induced chest pain or cardiac arrhythmia 3. Impaired exercise tolerance, attained a maximum of 4.6 METs Electronically Signed On 05-08-2023 15:39:30 CDT by Reina Rutherford M.D. [email or web address]
[2023-05-08 13:06] VITALS: BP 120/76; PULSE 101
== END 2023-05-08 12:27 | disposition home or self-care (01) ==
LOC: CDL 12:27
PROVIDERS: PCP Family Medicine; Visit Provider Family Medicine
DX: I20.0 Unstable angina (principal)
CPT/HCPCS: 93017

== ENCOUNTER 2023-06-03 07:27 | Outpatient (CLI) | payer BC, SELFPAY ==
--- NOTE | 2023-06-03 08:30 | CT_ITS ---
WS: [id number] CT CHEST, ABDOMEN, AND PELVIS TECHNIQUE: Contrast-enhanced CT of the chest, abdomen, and pelvis with coronal and sagittal reformatt ed images. CLINICAL INFORMATION: surveillance COMPARISON: CT 12/26/2022 DLP: 1162.[address] scans at [facility] use at least one of these dose optimization techniques: automated e xposure control; mA and/or kV adjustment per patient size (includes targeted exams where dose is matc hed to clinical indication); or iterative reconstruction. CT CHEST: Prior LEFT pneumonectomy. RIGHT to LEFT mediastinal shift. RIGHT lung is well aerated. No acute pulmo nary infiltrates. No new or suspicious pulmonary parenchymal opacities. Previous described tiny subce ntimeter nodules not as well seen today. No evidence of metastatic disease in the chest. Normal caliber thoracic aorta. No mediastinal or hilar lymphadenopathy today. A few normal mediastina l lymph nodes. No axillary lymphadenopathy. CT ABDOMEN AND PELVIS: Diffuse fatty infiltration of the liver. Normal portal vein and splenic vein. Normal spleen. Normal G E junction. Adrenal glands are normal. Normal pancreatic parenchymal enhancement. Normal gallbladder. Tiny bilateral renal cysts. Normal caliber abdominal aorta. Evidence of congenital malrotation of the small bowel. Prior hysterec elmer. RIGHT adnexal cysts largest measuring 3.1 cm similar to previous. Sigmoid diverticulosis. No evidence of acute diverticulitis. Disc space narrowing worse at L5-S1. IMPRESSION: 1. No evidence of metastatic disease in the chest abdomen or pelvis. 2. Prior LEFT pneumonectomy. 3. No adenopathy in the chest abdomen or pelvis. 4. Mild diffuse fatty infiltration liver. 5. Congenital malrotation of the small bowel. 6. RIGHT adnexal cysts similar to previous.
[2023-06-03] MEDS: iohexol 350 mg/mL 500 mL Btl (per mL) PO (08:43)
[2023-06-03] MEDS: iohexol 350 mg/mL 500 mL Btl (per mL) IV (08:43)
== END 2023-06-03 07:28 | disposition home or self-care (01) ==
LOC: RAD 07:27
PROVIDERS: PCP Family Medicine; Visit Provider Nurse Practitioner Family
DX: C34.02 Malignant neoplasm of left main bronchus (principal); Z90.2 Acquired absence of lung [part of]; K76.0 Fatty (change of) liver, not elsewhere classified; Q43.3 Congenital malformations of intestinal fixation
CPT/HCPCS: 71260; 74177; Q9967

== ENCOUNTER 2023-06-30 11:04 | Oncology outpatient (recurring) (ONCR) | payer BC, SELFPAY ==
[2023-06-30 11:13] VITALS: BP 136/93; PULSE 101; RESP 16; TEMP 36.6; O2SAT 96
[2023-06-30 11:30] LABS: Basophils # 0.1 10^3/uL (0.0-0.1); Basophils % 0.7 %; Eosinophils # 0.1 10^3/uL (0.0-0.8); Eosinophils % 0.7 %; Hematocrit 40.7 % (36-47); Lymphocytes % 34.5 %; Mean Corpuscular HGB Conc 33.9 g/dL (30-55); Mean Corpuscular Hemoglobin 30.4 pg (27-33); Mean Corpuscular Volume 89.6 fl (85-98); Mean Platelet Volume 8.9 fL (7.4-10.4); Monocytes # 0.8 10^3/uL (0.2-0.9); Neutrophils % 54.8 %; Nucleated Red Blood Cells % 0 %; Platelet Count 318 10^3/cmm (157-399); Red Blood Count 4.54 10^6/uL (3.85-5.65); Red Cell Distribution Width 12.9 % (12.1-15.1); White Blood Count 8.76 10^3/uL (3.29-11.43)
[2023-06-30 11:47] LABS: Alanine Aminotransferase 22 U/L (0-33); Albumin Level 4.4 g/dL (3.5-5.2); Alkaline Phosphatase 64 U/L (35-105); Anion Gap 14.6 (5-19); Aspartate Amino Transferase 23 U/L (0-32); Blood Urea Nitrogen 15 mg/dL (6-20); Calcium 10.3 mg/dL (8.5-10.5); Carbon Dioxide 29 mmol/L (22-29); Chloride 98 mmol/L (98-107); Glomerular Filtration Rate 74.7 mL/min (90-130); Glucose 101 mg/dL (65-115); Osmolality Calculated 287 mOsm/kg (285-295); Potassium 3.6 mmol/L (3.5-5.1); Sodium 138 mmol/L (136-145); Total Bilirubin 0.2 mg/dL (0.15-1.2); Total Protein 7.4 g/dL (6.6-8.7)
== END 2023-07-19 23:59 | disposition home or self-care (01) ==
PROVIDERS: Nurse Practitioner Family; PCP Family Medicine; Visit Provider Internal Medicine Medical Oncology
DX: C34.02 Malignant neoplasm of left main bronchus (principal); C78.1 Secondary malignant neoplasm of mediastinum; C78.39 Secondary malignant neoplasm of other respiratory organs; C77.8 Secondary and unspecified malignant neoplasm of lymph nodes of multiple regions; R53.83 Other fatigue; R06.02 Shortness of breath; Z99.81 Dependence on supplemental oxygen; R00.0 Tachycardia, unspecified; Z79.899 Other long term (current) drug therapy; Z87.891 Personal history of nicotine dependence; Z45.2 Encounter for adjustment and management of vascular access device
CPT/HCPCS: 36415; 80053; 85025

== ENCOUNTER 2023-07-02 08:14 | Outpatient (CLI) | payer BC, SELFPAY ==
--- NOTE | 2023-07-02 | ECG_ITS ---
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 Interpretive Statements NAME OF STUDY: LEXISCAN SESTAMIBI STRESS TEST INDICATION: Chest Pain PROCEDURE: At the baseline, the blood pressure was 129/89 mmHg with a heart rate of 97 beats per min. The electrocardiogram showed sinus rhythm, normal axis. Left atrial enlargement. Nonspecific ST depression. ??? The Lexiscan was infused over a period of 20 seconds. A total of 0.4 milligrams of Lexiscan was infused. The stress phase was continued for a total of 5 minutes. Heart rate at the end of the stress phase was 107 bpm with a blood pressure of 113/74 mmHg. The EKG at the peak infusion revealed sinus tachycardia with no significant ST-T wave changes. ??? Sestamibi was injected 20 seconds after the Lexiscan infusion. ??? Blood pressure at the end of the recovery phase was 104/48 mmHg with a heart rate of 98 beats per minute. ??? CONCLUSION: 1. No significant EKG changes with the LexiScan infusion. 2. No LexiScan induced chest pain or cardiac arrhythmia. 3. Normal blood pressure and heart rate response. 4. Sestamibi/sestamibi perfusion scan pending; see separate report. Electronically Signed On 07-06-2023 11:24:29 CONTOUR PATH TAPE MILL OPERATOR by Juany Owens M.D. [id number]
[2023-07-02 08:55] VITALS: BMI 33.8
--- NOTE | 2023-07-02 08:58 | NMCV_ITS ---
NM dangelo perf SPECT r/s* [id number] Sarahi Christopher Age: 53 Gender: F : 1970 Exam Date: 07/02/2023 09:32 Ordering Phys: Naveen Jacques MD ([email or web address]) Technologist: SABRA Schulte Exam Location: [facility] Indications: CHEST PAIN STRESS TEST Please see separate stress test report in [facility] for full findings IMAGE PROTOCOL Rest/Stress 1 Lexiscan Day Radiopharmaceutical Dose (mCi) Administration Site Administered by Rest: Tc-99m 10.8 IV SABRA Subramanian Sestamibi Stress:Tc-99m 32.6 IV SABRA Subramanian Sestamibi Rest: 02-Jul-2023 60 Discovery 630 Stress: 02-Jul-2023 30 Discovery 630 0.4mg Lexiscan. Images obtained in supine and prone position. SPECT RESULTS Technical Quality: Excellent Raw Data Analysis: Normal Image Corrections: No attenuation or motion correction applied Summed Stress Score: 2 Summed Rest Score: 0 Summed Difference Score: 2 PERFUSION FINDINGS SPECT images demonstrate homogeneous tracer distribution throughout the myocardium. FUNCTIONAL RESULTS (calculated via Gated SPECT) Stress Image LV EF (%): 95 Stress EDV (mL):37 TID: 0.84 Stress ESV (mL):2 FUNCTIONAL FINDINGS: The left ventricle is normal in size. Transient Ischemia Dilatation of 0.84. The left ventricular ejection fraction is normal with a value of 95%. There is hyperdynamic left ventricular global systolic function. There is hyperdynamic left ventricular wall thickening. IMPRESSIONS 1. Myocardial perfusion imaging is normal. 2. Overall left ventricular systolic function is hyperdynamic without regional wall motion abnormalities, LVEF=95%. 3. EKG portion of the study will be reported separately. Refer to separate report for details. 4. Scan indicates low risk for cardiac events. Juany Owens MD (Electronically Signed) Final Date: 06 July 2023 11:21 S
[2023-07-02] MEDS: regadenoson 0.4 Mg/5 ml Syringe IVP (10:28)
[2023-07-02 10:45] VITALS: BP 104/62; PULSE 98
== END 2023-07-02 08:15 | disposition home or self-care (01) ==
PROVIDERS: PCP Family Medicine; Visit Provider Internal Medicine Cardiovascular Disease
DX: R07.9 Chest pain, unspecified (principal)
CPT/HCPCS: 36415; 78452; 93017; 96374; A9500; J2785

== ENCOUNTER 2023-12-02 07:06 | Outpatient (CLI) | payer BC, SELFPAY ==
--- NOTE | 2023-12-02 08:00 | CTR_ITS ---
PROCEDURE INFORMATION: Exam: CT Chest With Contrast; Diagnostic Exam date and time: 12/02/2023 8:32 AM Age: 53 years old Clinical indication: Condition or disease; Lung condition and disease; Cancer of the lung; Unspecified; Primary cancer: Left lung; Prior surgery; Surgery date: 6+ months; Surgery type: Hyst; Additional info: Compare to previous TECHNIQUE: Imaging protocol: Diagnostic computed tomography of the chest with contrast. Radiation optimization: All CT scans at this facility use at least one of these dose optimization techniques: automated exposure control; mA and/or kV adjustment per patient size (includes targeted exams where dose is matched to clinical indication); or iterative reconstruction. Contrast material: OMNI 350; Contrast volume: 100 ml; Contrast route: INTRAVENOUS (IV); COMPARISON: CT chest abdpel w/*[id number] 06/03/2023 8:34 AM RADIATION DOSE METRICS: Total DLP (mGy-cm): 1029.77 FINDINGS: Thyroid: No significant thyroid pathology. Lungs: Features of prior left pneumonectomy again noted. Minimal fluid in the pneumonectomy space with pleural thickening again seen. No significant pathology in the right lung. Pleural spaces: See Lungs finding. Heart: Unremarkable. No cardiomegaly. No pericardial effusion. Coronary arteries: No coronary artery calcification evident. Lymph nodes: No thoracic adenopathy. Vasculature: No evidence of thoracic aortic aneurysm. Bones/joints: Postoperative changes of the left ribcage again seen. No thoracic bony metastasis. Mild degenerative change present in the spine. Soft tissues: Unremarkable. Other findings: No right effusion. PROCEDURE INFORMATION: Exam: CT Abdomen And Pelvis With Contrast Exam date and time: 12/02/2023 8:32 AM Age: 53 years old Clinical indication: Condition or disease; Lung condition and disease; Cancer of the lung; Unspecified; Primary cancer: Left lung; Prior surgery; Surgery date: 6+ months; Surgery type: Hyst; Additional info: Compare to previous TECHNIQUE: Imaging protocol: Computed tomography of the abdomen and pelvis with contrast. Radiation optimization: All CT scans at this facility use at least one of these dose optimization techniques: automated exposure control; mA and/or kV adjustment per patient size (includes targeted exams where dose is matched to clinical indication); or iterative reconstruction. Contrast material: OMNI 350; Contrast volume: 100 ml; Contrast route: INTRAVENOUS (IV); COMPARISON: CT chest abdpel w/*[id number] 06/03/2023 8:34 AM RADIATION DOSE METRICS: Total DLP (mGy-cm): 1029.77 FINDINGS: Lungs: Visualized lung bases are free of significant pathology. Liver: No significant liver pathology. Gallbladder and bile ducts: No significant gallbladder pathology. No biliary dilatation. Pancreas: No significant pancreatic pathology. Spleen: No significant splenic pathology. Adrenal glands: No significant adrenal pathology. Kidneys and ureters: There are renal cortical cysts and subcentimeter cortical hypodensities which are indeterminate by criteria but statistically most likely represent cysts. Stomach and bowel: Non rotation of the bowel again noted with small bowel in the right abdomen and colon in the left abdomen. Appendix: No appendiceal pathology evident. Intraperitoneal space: No ascites. Vasculature: No abdominal aortic aneurysm. Lymph nodes: No evidence of lymphadenopathy. Urinary bladder: Unremarkable urinary bladder. Reproductive: Prior hysterectomy. Right adnexal abnormalities again noted. The largest of these measures up to 3.4 cm on series 5, image 68 increased compared with 2.8 cm on the prior study. High attenuation cysts versus solid lesion in the right ovary on series 5, image 65 again seen measuring 1.7 cm. No left adnexal pathology evident. Bones/joints: Mild degenerative change present in the spine. No bony metastasis evident. Soft tissues: Small bilateral fat containing inguinal hernias. CT/CT chest abdpel w/*[id number] IMPRESSION: No evidence of recurrent neoplasm or significant interval change status post left pneumonectomy. IMPRESSION: 1. No evidence of abdominopelvic metastasis. 2. Interval increase in largest right ovarian cyst with indeterminate 1.7 cm right ovarian lesion again noted; ultrasound recommended for further assessment. 3. Stable minor findings described above.
[2023-12-02] MEDS: iohexol 300 mg/mL 100 mL Btl PO (08:35)
[2023-12-02] MEDS: iohexol 350 mg/mL 500 mL Btl (per mL) IV (08:37)
== END 2023-12-02 07:07 | disposition home or self-care (01) ==
LOC: RAD 07:06
PROVIDERS: PCP Family Medicine; Visit Provider Internal Medicine Medical Oncology
DX: C34.02 Malignant neoplasm of left main bronchus (principal); N83.201 Unspecified ovarian cyst, right side; N28.1 Cyst of kidney, acquired; Z90.710 Acquired absence of both cervix and uterus; M47.9 Spondylosis, unspecified; K44.9 Diaphragmatic hernia without obstruction or gangrene
CPT/HCPCS: 71260; 74177; Q9967

== ENCOUNTER 2023-12-17 09:00 | Oncology outpatient (recurring) (ONCR) | payer BC, SELFPAY ==
--- NOTE | 2023-12-16 06:15 | US_ITS ---
WS: [id number] US pelv w/transvag [id number] HISTORY: abnormal imaging; focus on ovaries COMPARISON: None available. Status post hysterectomy. No midline mass. No uterus identified. No free fluid centrally. Right ovary: 4.4 cm x 4.9 cm x 2.6 cm. Complex cystic collection in the RIGHT adnexa is elongated wit h a few thin septations. Entire cystic collection measures 4.1 x 4.6 x 2.4 cm. On a prior CT from 11/17 this does appear to be a collection of cysts/complex cysts associated with the ovary. Left ovary: Not identified. No free fluid in the cul-de-sac. US/US pelv w/transvag [id number] IMPRESSION: 1. O RADS 4; intermediate risk for malignancy based on the BI-RADS criteria. A dditional imaging and/or follow-up with [facility] recommended. MRI pelvis with and wi thout contrast may be of benefit to evaluate for enhancement. 2. Status post hysterectomy.
[2023-12-17 10:23] LABS: Basophils # 0.1 10^3/uL (0.0-0.1); Basophils % 0.9 %; Eosinophils # 0.1 10^3/uL (0.0-0.8); Eosinophils % 0.9 %; Hematocrit 39.7 % (36-47); Lymphocytes # 2.8 10^3/uL (0.8-4.8); Mean Corpuscular Hemoglobin 30.2 pg (27-33); Mean Corpuscular Volume 88.8 fl (85-98); Monocytes # 0.8 10^3/uL (0.2-0.9); Neutrophils # 3.17 10^3/uL (1.8-7.7); Neutrophils % 45.9 %; Nucleated Red Blood Cells % 0 %; Platelet Count 374 10^3/cmm (157-399); Red Blood Count 4.47 10^6/uL (3.85-5.65); Red Cell Distribution Width 12.8 % (12.1-15.1)
[2023-12-17 10:52] LABS: Alanine Aminotransferase 21 U/L (0-33); Alkaline Phosphatase 63 U/L (35-105); Anion Gap 12.4 (5-19); Aspartate Amino Transferase 19 U/L (0-32); Blood Urea Nitrogen 16 mg/dL (6-20); Calcium 9.4 mg/dL (8.5-10.5); Carbon Dioxide 31 mmol/L (22-29); Chloride 101 mmol/L (98-107); Glomerular Filtration Rate 104.2 mL/min (90-130); Glucose 100 mg/dL (65-115); Osmolality Calculated 293 mOsm/kg (285-295); Potassium 3.4 mmol/L (3.5-5.1); Sodium 141 mmol/L (136-145); Thyroid Stimulating Hormone 1.06 uIU/mL (0.27-4.20); Total Bilirubin 0.2 mg/dL (0.15-1.2)
== END 2023-12-18 23:59 | disposition home or self-care (01) ==
PROVIDERS: PCP Family Medicine; Visit Provider Internal Medicine Medical Oncology
DX: C34.02 Malignant neoplasm of left main bronchus (principal); C78.1 Secondary malignant neoplasm of mediastinum; C78.39 Secondary malignant neoplasm of other respiratory organs; C77.8 Secondary and unspecified malignant neoplasm of lymph nodes of multiple regions; R53.83 Other fatigue; R06.02 Shortness of breath; Z99.81 Dependence on supplemental oxygen; R00.0 Tachycardia, unspecified; Z79.899 Other long term (current) drug therapy; Z87.891 Personal history of nicotine dependence; Z45.2 Encounter for adjustment and management of vascular access device; R93.89 Abnormal findings on diagnostic imaging of other specified body structures; N83.209 Unspecified ovarian cyst, unspecified side
CPT/HCPCS: 36415; 76830; 76856; 80053; 84443; 85025

== ENCOUNTER 2024-02-02 08:26 | Emergency (ER) | payer BC, SELFPAY ==
[2024-02-02 08:38] VITALS: BP 144/118; PULSE 91; RESP 20; TEMP 36.4; O2SAT 99
--- NOTE | 2024-02-02 09:04 | XRR_ITS ---
PROCEDURE INFORMATION: Exam: XR Chest Exam date and time: 02/02/2024 9:12 AM Age: 54 years old Clinical indication: Pain; Angina pectoris; Prior surgery; Surgery date: 6+ months; Surgery type: Lung; Additional info: Shoulder pain, HX of lung CA TECHNIQUE: Imaging protocol: Radiologic exam of the chest. Views: 1 view. COMPARISON: CT chest abdpel w/*[id number] 12/02/2023 8:32 AM FINDINGS: Lungs: Evidence of prior total left pneumonectomy with associated volume loss left hemithorax unchanged. Right lung field remains aerated and clear. Pleural spaces: Unremarkable. No pleural effusion. No pneumothorax. Heart/Mediastinum: Cardiac silhouette is obscured difficult to assess. There is moderate elevation left hemidiaphragm related to the volume loss unchanged. Bones/joints: Unremarkable for age. XR/XR chest 1V portable [id number] IMPRESSION: Prior total left pneumonectomy. Stable chest. No active disease.
--- NOTE | 2024-02-02 09:04 | XRR_ITS ---
PROCEDURE INFORMATION: Exam: XR Right Scapula Exam date and time: 02/02/2024 9:13 AM Age: 54 years old Clinical indication: Pain; Shoulder; Right; Prior surgery; Surgery date: 6+ months; Surgery type: RT lung; Patient HX: HX of lung cancer TECHNIQUE: Imaging protocol: Radiologic exam of the right scapula. Complete exam. COMPARISON: CR XR chest 1V portable [id number] 02/02/2024 9:12 AM FINDINGS: Bones/joints: Unremarkable. No fracture, deformity or underlying bone lesion detected.. Soft tissues: Normal. XR/[place] [id number] IMPRESSION: Negative study.
--- NOTE | 2024-02-02 09:14 | W.ED.EXTPRO ---
HPI - Extremity Problem General: Chief complaint: Back Pain/Injury Stated complaint: back and shoulder pain Time Seen by Provider: 02/02/24 08:50 Source: patient Mode of arrival: ambulatory Limitations: no limitations History of Present Illness: Patient is a 54-year-old female presents to ED today with a complaint of pain near her right shoulder blade over the past 3 days. No known injury or trauma. She describes it as a burning-like sensation near the medial edge of her scapula. She feels like occasionally she can place the shoulder in certain positions to alleviate the pain but otherwise pain has been constant. She has tried various remedies at home including leftover opiate pain medication, Tylenol, Motrin, Valium all without relief. Worried as she has a history of mediastinal/lung cancer previously requiring left pneumonectomy. She has followed up with her oncology team routinely and is getting repeat CT imaging every 6 months. Last imaging was 2 months ago and reportedly normal. MD Complaint: joint pain Onset (ago): day(s) Pain Consistency: constant Location: right and upper extremity Quality: burning Radiation: none Relieving factors: other (certain positions ) Exacerbating factors: nothing Associated symptoms: Reports no associated symptoms; Deny chest pain, fever(s) or rash Review of Systems Const: Denies: fever(s), chills, body aches, fatigue or malaise Card: Denies: chest pain Resp: Reports: dyspnea (chronic-at baseline; hx of L pneumonectomy) GI: Denies: abdominal pain : Denies: flank pain, dysuria or hematuria Musc: Reports: joint pain (posterior shoulder/scapula); Denies: neck pain, back pain, extremity pain, extremity swelling, joint swelling, joint redness, joint warmth or limited range of motion Skin/Breast: Denies: rash Neuro: Denies: headache(s), numbness in extremities, weakness in extremities or sensory changes PFS ED PFSH: Medical History Obesity (BMI 30-39.9) Chest pain Non-small cell lung cancer Fibrocystic breast Depression Fibromyalgia Sleep apnea AK (actinic keratosis) Essential hypertension Tobacco abuse Estrogen deficiency Anxiety Hypercholesteremia Surgical History Port-A-Cath in place History of tonsillectomy History of total hysterectomy History of thoracotomy (09/03/20) left-sided open mediastinotomy with biopsies of AP window mass History of vaginal hysterectomy History of tonsillectomy History of pneumonectomy (12/26/20) left thoracotomy and intrapericardial left pneumonectomy and mediastinal lymph node dissection Family History Mother Cancer lymphoma Father Cancer lung, liver Other Breast cancer Diabetes Hyperlipidemia Hypertension Lung disease Ovarian cancer Psychiatric illness Stroke Denies family history of Colon cancer CAD (coronary artery disease) Clotting disorder Dementia Heart disease Chronic kidney disease (CKD) Suicide Anesthesia complication Bleeding disorder Uterine cancer Social History Smoking and tobacco/nicotine status: former use of tobacco/nicotine Physical Exam Const: COMMON NORMALS: no acute distress, patient oriented x3, no limitations, healthy appearing, alert and well nourished GENERAL APPEARANCE: cooperative Neck/C-Spine: COMMON NORMALS: full ROM GENERAL: Yes normal visual inspection Chest: COMMONS NORMALS: normal inspection of the chest and normal palpation of entire chest wall Resp: COMMON NORMALS: normal respiratory effort AUSCULTATION: breath sounds absent (L-prior pneumonectomy) Cardio: COMMON NORMALS: regular rate and regular rhythm RATE: regular rate RHYTHM: regular rhythm Back/Pelvis: COMMON NORMALS: thoracic and lumbar spine normal to inspection Extremity: COMMON NORMALS: normal to inspection, full ROM and capillary refill normal GENERAL: Yes normal exam except as noted RIGHT UPPER EXTREMITY: Yes shoulder joint (TTP medial edge R scapula) Right shoulder: Yes Right shoulder joint inspection exam (normal gross inspection) and Yes Right shoulder joint neurovascular exam (normal) Neuro: COMMON NORMALS: patient oriented x3, moves all extremities, no focal motor deficits and no sensory deficits noted SENSORIUM/ORIENTATION: Yes alert Skin: COMMON NORMALS: no rashes or lesions noted GENERAL SKIN EXAM: no rashes or lesions noted Course Vital Signs: Vital signs: Vital Signs Temperature 97.5 F L 02/02/24 10:20 Pulse Rate 91 02/02/24 10:20 Respiratory Rate 18 02/02/24 10:20 Blood Pressure 133/110 02/02/24 10:20 Pulse Oximetry 98 02/02/24 10:20 Oxygen Delivery Me thod Room Air 02/02/24 09:33 MDM - Extremity (Nontraumatic) Medical Decision Making XRs are unremarkable. She feels better after IM medications given here. She will be placed on anti-inflammatories, steroids, muscle relaxers. Recommend follow-up with her primary care provider later this week/early next week if symptoms do not seem to be improving. Medical Records I reviewed the patient's medical records. Lab Data Radiology Impressions Chest X-Ray 02/02/24 09:04 IMPRESSION: Prior total left pneumonectomy. Stable chest. No active disease. Scapula X-Ray 02/02/24 09:04 IMPRESSION: Negative study. All radiology interpretation(s) finalized by discharge Discharge Plan Discharge Patient Disposition: Home Clinical Impression: Upper back pain on right side Condition: Stable Prescriptions: New methocarbamol 500 mg tablet 1,000 mg PO Q8H Qty: 30 0RF prednisone 10 mg tablet 10 mg PO DAILY 6 Days Qty: 20 0RF Rx Instructions: Take 5 tabs on day 1-2, 4 tabs on day 3, 3 tabs on day 4, 2 tabs on day 5, and 1 tab on day 6 diclofenac sodium 50 mg tablet,delayed release (DR/EC) 50 mg PO Q12H PRN (Reason: pain) Qty: 20 0RF No Action phentermine 37.5 mg tablet 37.5 mg PO .qod Qty: 30 0RF nitroglycerin 0.4 mg tablet, sublingual 0.4 mg sublingual Q5M PRN (Reason: chest pain) Qty: 30 1RF Rx Instructions: do not exceed 3 doses per episode (DME) Auto-titrating 6-14cm See Rx Instructions .Route .MEDSUPPLY Qty: 1 0RF Rx Instructions: As directed Calcium 500 + D (D3) 2 tab PO DAILY clindamycin phosphate 1 % lotion See Rx Instructions .ROUTE .COMPLEX Rx Instructions: Apply TO rash ON gluteal folds ONCE daily NEEDED Women's Multivitamin 18 mg iron-400 mcg-500 mg Tablet 1 tab PO DAILY hydrochlorothiazide 25 mg tablet 25 mg PO DAILY estradiol 0.5 mg tablet 0.5 mg PO DAILY Discharge Orders: Discharge ED (Routine); Ordered 02/02/24 Ordered By: Leora Tuttle Referrals: Candis Blue MD [Primary Care Provider] - Coding Level of Care Code ED Tape Deck Installer for Chg Fwd
[2024-02-02 09:31] VITALS: RESP 18
[2024-02-02] MEDS: morphine 4 mg/mL SDV 1 mL IM (09:31)
[2024-02-02] MEDS: orphenadrine 30 mg/mL Inj 2 mL 60 MG IM (09:31)
[2024-02-02] MEDS: dexamethasone 10 mg/mL INJ IM (09:32)
[2024-02-02] MEDS: ketorolac 60 mg/2 mL INJ IM (09:32)
[2024-02-02 09:33] VITALS: BP 133/110; PULSE 91; O2SAT 98
[2024-02-02 10:20] VITALS: BP 133/110; PULSE 91; RESP 18; TEMP 36.4; O2SAT 98
== END 2024-02-02 10:25 | disposition home or self-care (01) ==
PROVIDERS: Emergency Provider Physician Assistant; PCP Family Medicine
DX: M54.6 Pain in thoracic spine (principal); Z87.891 Personal history of nicotine dependence; Z85.118 Personal history of other malignant neoplasm of bronchus and lung; I10 Essential (primary) hypertension
CPT/HCPCS: 71045; 73010; 96372; 99284; J1100; J1885; J2270; J2360

== ENCOUNTER → 2024-03-31 15:17 | Outpatient (BNVA) | payer BC, SELFPAY | PROVIDERS: PCP Family Medicine; Visit Provider Family Medicine | DX: E87.6 Hypokalemia (principal); D63.0 Anemia in neoplastic disease | CPT/HCPCS: 80053; 85025 ==

== ENCOUNTER 2024-04-20 08:22 | Outpatient (CLI) | payer BC, SELFPAY ==
--- NOTE | 2024-04-20 08:23 | MM_ITS ---
WS: [id number] BILATERAL SCREENING DIGITAL TOMOSYNTHESIS MAMMOGRAM WITH CAD HISTORY: SCREENING COMPARISON: 04/01/2023, 01/03/2020 and 02/04/2022 Bilateral CC and MLO views with tomosynthesis and synthetic mammography submitted. Computer aided det ection analyzed. Breast composition: There are scattered areas of fibroglandular density. No suspicious masses, microc alcifications or architectural distortion. There are a few scattered calcifications and stable masses within each breast. MM/MM scr tomosynthesis [id number] IMPRESSION: BI-RADS: 2 - Benign. FOLLOW UP: 1 Year Follow-up
== END 2024-04-20 08:23 | disposition home or self-care (01) ==
LOC: RAD 08:22
PROVIDERS: PCP Family Medicine; Visit Provider Family Medicine
DX: Z12.31 Encounter for screening mammogram for malignant neoplasm of breast (principal)
CPT/HCPCS: 77063; 77067

== ENCOUNTER 2024-06-17 07:06 | Oncology outpatient (recurring) (ONCR) | payer BC, SELFPAY ==
--- NOTE | 2024-06-17 08:00 | CTR_ITS ---
PROCEDURE INFORMATION: Exam: CT Chest With Contrast; Diagnostic Exam date and time: 06/17/2024 8:17 AM Age: 54 years old Clinical indication: Condition or disease; Lung condition and disease; Cancer of the lung; Unspecified; Primary cancer: Lung cancer; Prior surgery; Surgery date: 6+ months; Surgery type: Left lung, hyst, port and removed; Additional info: Lung cancer; Compare to previous TECHNIQUE: Imaging protocol: Diagnostic computed tomography of the chest with contrast. Radiation optimization: All CT scans at this facility use at least one of these dose optimization techniques: automated exposure control; mA and/or kV adjustment per patient size (includes targeted exams where dose is matched to clinical indication); or iterative reconstruction. Contrast material: OMNI 350; Contrast volume: 100 ml; Contrast route: INTRAVENOUS (IV); COMPARISON: CT chest abdpel w/*[id number] 12/02/2023 8:32 AM RADIATION DOSE METRICS: Total DLP (mGy-cm): 1061.43 FINDINGS: Lungs: Total left pneumonectomy. No evidence of recurrence, residual, or metastatic disease. Pleural spaces: Unremarkable. No pneumothorax. No pleural effusion. Heart: Unremarkable. No cardiomegaly. No pericardial effusion. Lymph nodes: Unremarkable. No enlarged lymph nodes. Vasculature: Unremarkable. No aortic aneurysm. Bones/joints: Unremarkable. No acute fracture. Soft tissues: Unremarkable. PROCEDURE INFORMATION: Exam: CT Abdomen And Pelvis With Contrast Exam date and time: 06/17/2024 8:17 AM Age: 54 years old Clinical indication: Condition or disease; Lung condition and disease; Cancer of the lung; Unspecified; Primary cancer: Lung cancer; Prior surgery; Surgery date: 6+ months; Surgery type: Left lung, hyst, port and removed; Additional info: Lung cancer; Compare to previous TECHNIQUE: Imaging protocol: Computed tomography of the abdomen and pelvis with contrast. Radiation optimization: All CT scans at this facility use at least one of these dose optimization techniques: automated exposure control; mA and/or kV adjustment per patient size (includes targeted exams where dose is matched to clinical indication); or iterative reconstruction. Contrast material: OMNI 350; Contrast volume: 100 ml; Contrast route: INTRAVENOUS (IV); COMPARISON: CT chest abdpel w/*[id number] 12/02/2023 8:32 AM RADIATION DOSE METRICS: Total DLP (mGy-cm): 1061.43 FINDINGS: Liver: Normal. No mass. Gallbladder and biliary ducts: Normal. No calcified stones. No ductal dilation. Pancreas: Normal. No ductal dilation. Spleen: Normal. No splenomegaly. Adrenal glands: Normal. No mass. Kidneys and ureters: Normal. No hydronephrosis. Stomach and bowel: Unremarkable. No obstruction. No mucosal thickening. Appendix: No evidence of appendicitis. Intraperitoneal space: Unremarkable. No free air. No significant fluid collection. Vasculature: Unremarkable. No abdominal aortic aneurysm. Lymph nodes: Unremarkable. No enlarged lymph nodes. Urinary bladder: Unremarkable as visualized. Reproductive: Unremarkable as visualized. Bones/joints: Unremarkable. No acute fracture. Soft tissues: Unremarkable. CT/CT chest abdpel w/*[id number] IMPRESSION: No acute findings. IMPRESSION: 1. No acute findings. 2. No evidence of metastatic disease.
[2024-06-17] MEDS: iohexol 350 mg/mL 500 mL Btl (per mL) IV (08:53)
[2024-06-17] MEDS: iohexol 350 mg/mL 500 mL Btl (per mL) PO (08:53)
== END 2024-06-18 23:59 | disposition home or self-care (01) ==
LOC: RAD 07:07 → ONCMED 06-20 09:07
PROVIDERS: PCP Family Medicine; Visit Provider Internal Medicine Medical Oncology
DX: C34.02 Malignant neoplasm of left main bronchus (principal); C78.1 Secondary malignant neoplasm of mediastinum; C78.39 Secondary malignant neoplasm of other respiratory organs; C77.8 Secondary and unspecified malignant neoplasm of lymph nodes of multiple regions; R53.83 Other fatigue; R06.02 Shortness of breath; Z99.81 Dependence on supplemental oxygen; R00.0 Tachycardia, unspecified; Z79.899 Other long term (current) drug therapy; Z87.891 Personal history of nicotine dependence; Z45.2 Encounter for adjustment and management of vascular access device; R93.89 Abnormal findings on diagnostic imaging of other specified body structures; N83.209 Unspecified ovarian cyst, unspecified side; Z53.9 Procedure and treatment not carried out, unspecified reason; N83.201 Unspecified ovarian cyst, right side
CPT/HCPCS: 71260; 74177

== ENCOUNTER 2024-06-20 12:52 | Oncology outpatient (recurring) (ONCR) | payer BC, SELFPAY ==
[2024-06-20 13:39] LABS: Basophils % 0.3 %; Eosinophils # 0.1 10^3/uL (0.0-0.8); Eosinophils % 0.9 %; Hematocrit 40.8 % (36-47); Lymphocytes # 2.8 10^3/uL (0.8-4.8); Lymphocytes % 30.4 %; Mean Corpuscular HGB Conc 33.6 g/dL (30-55); Mean Corpuscular Hemoglobin 30.2 pg (27-33); Mean Corpuscular Volume 89.9 fl (85-98); Mean Platelet Volume 9.2 fL (7.4-10.4); Monocytes # 0.8 10^3/uL (0.2-0.9); Monocytes % 9.1 %; Neutrophils # 5.41 10^3/uL (1.8-7.7); Neutrophils % 58.9 %; Nucleated Red Blood Cells % 0 %; Platelet Count 333 10^3/cmm (157-399); Red Blood Count 4.54 10^6/uL (3.85-5.65); Red Cell Distribution Width 12.4 % (12.1-15.1)
[2024-06-20 14:09] LABS: Alanine Aminotransferase 21 U/L (0-33); Albumin Level 4.1 g/dL (3.5-5.2); Alkaline Phosphatase 63 U/L (35-105); Anion Gap 13.7 (5-19); Aspartate Amino Transferase 20 U/L (0-32); Blood Urea Nitrogen 15 mg/dL (6-20); Calcium 9.5 mg/dL (8.5-10.5); Carbon Dioxide 29 mmol/L (22-29); Chloride 99 mmol/L (98-107); Globulin 2.6 g/dL (1.3-4.6); Glomerular Filtration Rate 86.9 mL/min (90-130); Glucose 90 mg/dL (65-115); Osmolality Calculated 286 mOsm/kg (285-295); Potassium 3.7 mmol/L (3.5-5.1); Sodium 138 mmol/L (136-145); Thyroid Stimulating Hormone 2.01 uIU/mL (0.27-4.20); Total Bilirubin 0.2 mg/dL (0.15-1.2); Total Protein 6.7 g/dL (6.6-8.7)
== END 2024-07-19 23:59 | disposition home or self-care (01) ==
PROVIDERS: Internal Medicine Medical Oncology; PCP Family Medicine; Visit Provider Internal Medicine Medical Oncology
DX: C34.02 Malignant neoplasm of left main bronchus (principal); C78.1 Secondary malignant neoplasm of mediastinum; C78.39 Secondary malignant neoplasm of other respiratory organs; C77.8 Secondary and unspecified malignant neoplasm of lymph nodes of multiple regions; R53.83 Other fatigue; R06.02 Shortness of breath; Z99.81 Dependence on supplemental oxygen; R00.0 Tachycardia, unspecified; Z79.899 Other long term (current) drug therapy; Z87.891 Personal history of nicotine dependence; Z45.2 Encounter for adjustment and management of vascular access device; N83.209 Unspecified ovarian cyst, unspecified side
CPT/HCPCS: 36415; 80053; 84443; 85025

== ENCOUNTER → 2024-07-07 14:02 | Outpatient (BNVA) | payer BC, SELFPAY | PROVIDERS: PCP Family Medicine; Visit Provider Family Medicine | DX: E87.6 Hypokalemia (principal); E03.9 Hypothyroidism, unspecified; R53.83 Other fatigue | CPT/HCPCS: 80048; 82306; 84439; 84443; 84481 ==

== ENCOUNTER → 2024-10-24 10:45 | Outpatient (BNVA) | payer BC, SELFPAY | PROVIDERS: PCP Family Medicine; Visit Provider Family Medicine | DX: C34.02 Malignant neoplasm of left main bronchus (principal); L04.0 Acute lymphadenitis of face, head and neck; E01.0 Iodine-deficiency related diffuse (endemic) goiter | CPT/HCPCS: 80053; 84439; 84443; 85025 ==

== ENCOUNTER 2024-10-28 15:41 | Outpatient (CLI) | payer BC, SELFPAY ==
--- NOTE | 2024-10-28 16:00 | USR_ITS ---
PROCEDURE INFORMATION: Exam: US Soft Tissue Head and Neck, Thyroid Exam date and time: 10/28/2024 3:54 PM Age: 54 years old Clinical indication: Other: Enlarged thyroid/nodule right sup pole vers cervical node TECHNIQUE: Imaging protocol: Real-time ultrasound scan of the neck with image documentation. Exam focused on the thyroid. COMPARISON: CT neck w con* [id number] 08/16/2020 2:37 PM FINDINGS: Right thyroid lobe: Measures 1.5 x 1.8 x 4.8 cm, with a volume of approximately 9 cc. No nodules. Left thyroid lobe: Mildly heterogeneous, measures 1.5 x 1.5 x 4.8 cm, approximately 5 cc. There is a solid 1.0 x 0.6 x 1.8 cm heterogeneous hypoechoic well-circumscribed nodule, wider than tall without internal calcifications or significant vascularity (TI-RADS 4). Isthmus: Measures 0.3 cm. No nodules. Lymph nodes: Unremarkable appearing local lymph nodes. US/US thyroid [id number] IMPRESSION: 1. Left thyroid lobe 1.8 cm nodule with imaging characteristics consistent with TI-RADS 4. TI-RADS category TR4, Moderately Suspicious. Fine needle aspiration is recommended. (Reference: Susie) 2. No nodule in the right thyroid lobe. Normal-appearing lymph nodes. REFERENCES: Susie FN, Johnny HANDY, Xu GILMAN et al. ACR Thyroid Imaging, Reporting and Data System (TI-RADS): White Paper of the ACR TI-RADS Committee. J Am Maria Elena Radiol. 2017; 14: 587-595.
== END 2024-10-28 15:42 | disposition home or self-care (01) ==
LOC: RAD 15:44
PROVIDERS: PCP Family Medicine; Visit Provider Family Medicine
DX: E04.1 Nontoxic single thyroid nodule (principal)
CPT/HCPCS: 76536

== ENCOUNTER 2024-12-26 13:00 | Oncology outpatient (recurring) (ONCR) | payer BC, SELFPAY ==
--- NOTE | 2024-12-19 17:00 | CT_ITS ---
WS: [id number] CT CHEST, ABDOMEN, AND PELVIS TECHNIQUE: Noncontrast CT of the abdomen and contrast-enhanced CT of the chest, abdomen, and pelvis with coronal and sagittal reformatted images. CLINICAL INFORMATION: Z98.890 - Other specified postprocedural states COMPARISON: 06/17/2024 DLP: 1311.[address] scans at [facility] use at least one of these dose optimization techniques: automated exposure control; mA and/or kV adjustment per patient size (includes targeted exams where dose is matched to clinical indication); or iterative reconstruction. CT CHEST: LEFT pneumonectomy is unchanged with volume loss and RIGHT to LEFT mediastinal shift. Tiny. No evidence of progressed disease in the chest. No mediastinal or hilar lymphadenopathy. RIGHT lung is well aerated. No acute pulmonary infiltrates. No axillary lymphadenopathy. Mild aortic calcification. CT ABDOMEN AND PELVIS: Diffuse fatty infiltration of the liver. Normal portal vein and splenic vein. Normal gallbladder. Normal spleen. Normal pancreatic parenchymal enhancement. Normal gallbladder. Celiac and SMA are patent. Adrenal glands are normal. Normal renal parenchymal enhancement. No hydronephrosis. Tiny renal cysts. Sigmoid diverticulosis. No evidence of acute diverticulitis. Tiny fat-containing umbilical hernia. Adrenal glands are normal. No free fluid in the abdomen or pelvis. No lymphadenopathy in the abdomen or pelvis. CT[facility] [id number] IMPRESSION: 1. No evidence of progressive metastatic disease in the chest abdomen or pelvi s. 2. Prior LEFT total pneumonectomy is unchanged. 3. No other significant changes.
[2024-12-19] MEDS: iohexol 350 mg/mL 500 mL Btl (per mL) PO (17:35)
[2024-12-19] MEDS: iohexol 350 mg/mL 500 mL Btl (per mL) IV (17:36)
[2024-12-26 14:02] LABS: Basophils # 0.1 10^3/uL (0.0-0.1); Basophils % 0.7 %; Eosinophils # 0.1 10^3/uL (0.0-0.8); Eosinophils % 0.7 %; Hematocrit 42.1 % (36-47); Lymphocytes # 2.6 10^3/uL (0.8-4.8); Lymphocytes % 27.2 %; Mean Corpuscular HGB Conc 34.2 g/dL (30-55); Mean Corpuscular Hemoglobin 29.9 pg (27-33); Mean Corpuscular Volume 87.3 fl (85-98); Mean Platelet Volume 9.2 fL (7.4-10.4); Monocytes # 0.9 10^3/uL (0.2-0.9); Monocytes % 9.1 %; Neutrophils # 5.88 10^3/uL (1.8-7.7); Neutrophils % 61.9 %; Nucleated Red Blood Cells % 0 %; Platelet Count 333 10^3/cmm (157-399); Red Blood Count 4.82 10^6/uL (3.85-5.65); Red Cell Distribution Width 12.5 % (12.1-15.1)
[2024-12-26 14:23] LABS: Alanine Aminotransferase 19 U/L (0-33); Albumin Level 4.3 g/dL (3.5-5.2); Alkaline Phosphatase 81 U/L (35-105); Anion Gap 12.6 (5-19); Aspartate Amino Transferase 20 U/L (0-32); Blood Urea Nitrogen 17 mg/dL (6-20); Calcium 9.8 mg/dL (8.5-10.5); Carbon Dioxide 28 mmol/L (22-29); Chloride 100 mmol/L (98-107); Globulin 2.9 g/dL (1.3-4.6); Glucose 99 mg/dL (65-115); Osmolality Calculated 286 mOsm/kg (285-295); Potassium 3.6 mmol/L (3.5-5.1); Sodium 137 mmol/L (136-145); Total Bilirubin 0.2 mg/dL (0.15-1.2); Total Protein 7.2 g/dL (6.6-8.7)
== END 2025-01-16 23:59 | disposition home or self-care (01) ==
PROVIDERS: PCP Family Medicine; Visit Provider Internal Medicine Medical Oncology
DX: Z53.9 Procedure and treatment not carried out, unspecified reason; C34.02 Malignant neoplasm of left main bronchus
CPT/HCPCS: 36415; 71260; 74178; 80053; 85025

== ENCOUNTER → 2025-04-03 11:47 | Outpatient (BNVA) | payer BC, SELFPAY | PROVIDERS: PCP Family Medicine; Visit Provider Family Medicine | DX: I10 Essential (primary) hypertension (principal) | CPT/HCPCS: 80053; 85025 ==

== ENCOUNTER 2025-05-02 08:40 | Outpatient (CLI) | payer BC, SELFPAY ==
--- NOTE | 2025-05-02 08:46 | MM_ITS ---
WS: [id number] BILATERAL 3D TOMOSYNTHESIS DIGITAL SCREENING MAMMOGRAPHY WITH CAD CLINICAL INFORMATION: SCREENING HISTORY: Screening mammogram. No current complaints. COMPARISON: 2023 TECHNIQUE: Bilateral CC and MLO views. FINDINGS: Scattered fibroglandular densities bilaterally. Several new ovoid nodules upper outer LEFT breast. Recommend further evaluation with LEFT breast diagnostic mammography and ultrasound. Stable RIGHT breast. MM/MM scr BI tomosynthesis [id number] IMPRESSION: DENSITY: There are scattered areas of fibroglandular density. BI-RADS: 0 - Incomplete: Need additional imaging evaluation. FOLLOW UP: Need Additional Imaging Recommend LEFT breast diagnostic mammography and ultrasound.
== END 2025-05-02 08:41 | disposition home or self-care (01) ==
LOC: RAD 08:41
PROVIDERS: PCP Family Medicine; Visit Provider Family Medicine
DX: Z12.31 Encounter for screening mammogram for malignant neoplasm of breast (principal); R92.323 Mammographic fibroglandular density, bilateral breasts; N63.20 Unspecified lump in the left breast, unspecified quadrant
CPT/HCPCS: 77063; 77067

== ENCOUNTER 2025-05-25 12:12 | Oncology outpatient (recurring) (ONCR) | payer BC, SELFPAY ==
--- NOTE | 2025-05-25 12:45 | MM_ITS ---
WS: [id number] LEFT 3D TOMOSYNTHESIS DIGITAL MAMMOGRAPHY WITH CAD CLINICAL INFORMATION: R92.8 - Other abnormal and inconclusive findings on diagn... HISTORY: Additional views COMPARISON: 05/02/2025 TECHNIQUE: 3 views of the left breast were obtained. FINDINGS: Scattered fibroglandular densities of the left breast. Again seen are several ovoid nodules upper outer LEFT breast. Ultrasound described below. ULTRASOUND BREAST LEFT TECHNIQUE: Ultrasound left breast focused area of concern. CLINICAL INFORMATION: R92.8 - Other abnormal and inconclusive findings on diagn... FINDINGS: Ultrasound LEFT breast upper outer quadrant demonstrates several small benign cysts the largest measures 10 mm at the 2 o'clock position 3 cm from the nipple. Findings are benign. Recommend return to annual screening mammography MM/MM diag LT tomosynthesis [id number] IMPRESSION: DENSITY: There are scattered areas of fibroglandular density. BI-RADS: 2 - Benign. FOLLOW UP: 1 Year Follow-up Recommend return to annual screening mammography.
== END 2025-06-18 23:59 | disposition home or self-care (01) ==
LOC: ONCMED 12:15
PROVIDERS: PCP Family Medicine; Visit Provider Internal Medicine Medical Oncology
DX: Z53.9 Procedure and treatment not carried out, unspecified reason (principal); C34.02 Malignant neoplasm of left main bronchus; Z98.890 Other specified postprocedural states; K76.0 Fatty (change of) liver, not elsewhere classified; K57.30 Diverticulosis of large intestine without perforation or abscess without bleeding; R92.8 Other abnormal and inconclusive findings on diagnostic imaging of breast
CPT/HCPCS: 76642; 77061; 77063; 80048

== ENCOUNTER 2025-07-04 12:32 | Oncology outpatient (recurring) (ONCR) | payer BC, SELFPAY ==
--- NOTE | 2025-06-28 09:30 | CTR_ITS ---
PROCEDURE INFORMATION: Exam: CT Chest With Contrast; Diagnostic Exam date and time: 06/28/2025 9:44 AM Age: 55 years old Clinical indication: Condition or disease; Other: Lung cancer; Prior surgery; Surgery date: 6+ months; Surgery type: Left lung, left ribs, hyst, port out TECHNIQUE: Imaging protocol: Diagnostic computed tomography of the chest with contrast. Radiation optimization: All CT scans at this facility use at least one of these dose optimization techniques: automated exposure control; mA and/or kV adjustment per patient size (includes targeted exams where dose is matched to clinical indication); or iterative reconstruction. Contrast material: OMNI 350; Contrast volume: 100 ml; Contrast route: INTRAVENOUS (IV); COMPARISON: 1. CT ch abdpel wo/w [id number] 12/19/2024 5:[address] chest abdpel w/*[id number] 06/17/2024 8:[address] chest abdpel w/*[id number] 06/03/2023 8:34 AM RADIATION DOSE METRICS: Total DLP (mGy-cm): 966.81 FINDINGS: Lungs: Stable postoperative changes from left pneumonectomy. Pleural spaces: Unremarkable. No pneumothorax. No pleural effusion. Heart: Unremarkable. No cardiomegaly. No pericardial effusion. Coronary arteries: No coronary artery calcifications. Lymph nodes: Unremarkable. No enlarged lymph nodes. Vasculature: Aortic atherosclerotic disease is seen without evidence of aneurysm. Bones/joints: Unremarkable. No acute fracture. Soft tissues: Unremarkable. PROCEDURE INFORMATION: Exam: CT Abdomen And Pelvis With Contrast Exam date and time: 06/28/2025 9:44 AM Age: 55 years old Clinical indication: Condition or disease; Other: Lung cancer; Prior surgery; Surgery date: 6+ months; Surgery type: Left lung, left ribs, hyst, port out TECHNIQUE: Imaging protocol: Computed tomography of the abdomen and pelvis with contrast. Radiation optimization: All CT scans at this facility use at least one of these dose optimization techniques: automated exposure control; mA and/or kV adjustment per patient size (includes targeted exams where dose is matched to clinical indication); or iterative reconstruction. Contrast material: OMNI 350; Contrast volume: 100 ml; Contrast route: INTRAVENOUS (IV); COMPARISON: CT ch abdpel wo/w [id number] 12/19/2024 5:27 PM RADIATION DOSE METRICS: Total DLP (mGy-cm): 966.81 FINDINGS: Liver: Diffuse hepatic hypoattenuation. Gallbladder and biliary ducts: Normal. No calcified stones. No ductal dilation. Pancreas: Normal. No ductal dilation. Spleen: Normal. No splenomegaly. Adrenal glands: Normal. No mass. Kidneys and ureters: Nonspecific low-density foci of the kidneys statistically favor benign cysts, no follow-up imaging is recommended, as large as 8 mm. Stomach and bowel: Redemonstrated midgut malrotation. Bowel has normal caliber. Appendix: No evidence of appendicitis. Intraperitoneal space: Unremarkable. No free air. No significant fluid collection. Vasculature: Aortoiliac atherosclerotic disease is seen without evidence of aneurysm. Lymph nodes: Unremarkable. No enlarged lymph nodes. Urinary bladder: Unremarkable as visualized. Reproductive: Uterus is surgically absent. No evidence of adnexal mass. Bones/joints: Unremarkable. No acute fracture. Soft tissues: Unremarkable. CT/CT chest abdpel w/*[id number] IMPRESSION: 1. Stable postoperative changes from left pneumonectomy. 2. No evidence of new or progressive malignancy in the chest. IMPRESSION: 1. No evidence of new or progressive malignancy in the abdomen or pelvis. 2. Hepatic steatosis. COMMENTS: Consistent with the [employer]'s Incidental Findings Committee white paper (J Am Maria Elena Radiol 2018): Any incidental renal lesion less than 1 cm or classified as too small to characterize, or any incidental cystic renal lesion characterized as simple-appearing, is likely benign. No follow-up imaging is recommended for these lesions per consensus recommendations based on imaging criteria.
[2025-06-28] MEDS: iohexol 350 mg/mL 500 mL Btl (per mL) PO (09:54)
[2025-06-28] MEDS: iohexol 350 mg/mL 500 mL Btl (per mL) IV (09:54)
[2025-07-04 12:50] LABS: Hematocrit 42.6 % (36-47); Hemoglobin 14.50 g/dL (11.27-16.99); Mean Corpuscular HGB Conc 34.0 g/dL (30-55); Mean Corpuscular Hemoglobin 29.6 pg (27-33); Mean Corpuscular Volume 86.9 fl (85-98); Nucleated Red Blood Cells % 0 %; Platelet Count 368 10^3/cmm (157-399); Red Blood Count 4.90 10^6/uL (3.85-5.65); White Blood Count 10.20 10^3/uL (3.29-11.43)
[2025-07-04 13:12] LABS: Alanine Aminotransferase 21 U/L (0-33); Albumin Level 4.3 g/dL (3.5-5.2); Alkaline Phosphatase 70 U/L (35-105); Anion Gap 15.2 (5-19); Aspartate Amino Transferase 22 U/L (0-32); Blood Urea Nitrogen 17 mg/dL (6-20); Calcium 10.0 mg/dL (8.5-10.5); Carbon Dioxide 28 mmol/L (22-29); Chloride 97 mmol/L (98-107); Globulin 2.9 g/dL (1.3-4.6); Glucose 102 mg/dL (65-115); Osmolality Calculated 284 mOsm/kg (285-295); Potassium 4.2 mmol/L (3.5-5.1); Sodium 136 mmol/L (136-145); Total Protein 7.2 g/dL (6.6-8.7)
== END 2025-07-19 23:59 | disposition home or self-care (01) ==
PROVIDERS: PCP Family Medicine; Visit Provider Internal Medicine Medical Oncology
DX: C34.02 Malignant neoplasm of left main bronchus; Z53.9 Procedure and treatment not carried out, unspecified reason
CPT/HCPCS: 71260; 74177; 80053; 85025

== ENCOUNTER 2025-07-14 09:57 | Outpatient (CLI) | payer BC, SELFPAY ==
--- NOTE | 2025-07-14 10:07 | CT_ITS ---
WS: [id number] CT NECK WITH CONTRAST HISTORY: PARALYSIS VOCAL CORDS TECHNIQUE: Contiguous 2 mm axial images are performed through the neck with intravenous contrast. Sagittal and coronal reformats are also submitted. All CT scans at [facility] use at least one of these dose optimization techniques: automated exposure control; mA and/or kV adjustment per patient size (includes targeted exams where dose is matched to clinical indication); or iterative reconstruction. CONTRAST: CONTRAST: Omnipaque 350; 100 mL IV. DLP: 318.73 mGy.cm COMPARISON: 08/16/2020 Mild deformity of the larynx at the level of the vocal cords. Mildly prominent LEFT laryngeal ventricle. There is a slightly medially rotated LEFT arytenoid cartilage. Dystrophic calcifications are noted also in the posterior larynx which could be causing some distortion of the soft tissues. There is no discrete mass identified or abnormal enhancement. No mass at the tongue base. Parapharyngeal soft tissues are normal. Small bilateral cervical chain lymph nodes. Subcentimeter LEFT thyroid nodule. Visualized paranasal sinuses and mastoid air cells are normal. Status post LEFT pneumonectomy. There is increased opacification throughout the LEFT thorax and postsurgical changes at the LEFT apex at the site of the previously described neoplasm. CT/CT neck w con* [id number] IMPRESSION: 1. Very mild deformity of the larynx at the level of vocal cords. 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 2. Dystrophic calcifications are noted in the posterior larynx which may be ca using some distortion of the soft tissues. 3. No enhancing mass or adenopathy. 4. Prior LEFT pneumonectomy.
[2025-07-14] MEDS: iohexol 350 mg/mL 500 mL Btl (per mL) IV (10:42)
== END 2025-07-14 09:58 | disposition home or self-care (01) ==
LOC: RAD 09:58
PROVIDERS: PCP Family Medicine; Visit Provider Specialist
DX: J38.01 Paralysis of vocal cords and larynx, unilateral (principal); Q31.9 Congenital malformation of larynx, unspecified; E04.1 Nontoxic single thyroid nodule; Z90.2 Acquired absence of lung [part of]
CPT/HCPCS: 70491

== ENCOUNTER 2025-07-19 08:25 | Outpatient (CLI) | payer BC, SELFPAY ==
--- NOTE | 2025-07-19 08:32 | FL_ITS ---
WS: [id number] Barium swallow and esophagram, 07/19/2025 Clinical Data: DYSPHAGIA Comparison: None. Fluoroscopy time: 1min [id number] # of spot films: 38 Findings: The patient swallowed the thick and thin barium, and it flowed through the hypopharynx without hesitation. No stricture, mass, polyp or erosion was seen. No aspiration or penetration occurred. The barium entered the esophagus and there was poor motility motility throughout. There was deviation of the trachea from right to left with probable traction deformities from fibrosis relating to the left pneumonectomy. No hiatal hernia, reflux, stricture, polyp, mass, erosion or ulcer was noted. The barium passed normally into the stomach.. FL/FL barium swallow [id number] Impression: 1. No aspiration or penetration. 2. 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 3. Poor esophageal motility again related to fibrosis from the left pneumonecto my.
== END 2025-07-19 08:26 | disposition home or self-care (01) ==
PROVIDERS: PCP Family Medicine; Visit Provider Specialist
DX: J38.01 Paralysis of vocal cords and larynx, unilateral (principal); R13.19 Other dysphagia; K22.89 Other specified disease of esophagus
CPT/HCPCS: 74220